=== PATIENT | female | born 2005 | race African-American/Black ===

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

== ENCOUNTER → 2023-05-13 | Emergency (ER) | payer OTHER ==
--- OUTSIDE RECORDS SUMMARY | 2023-05-13 23:34 | XMS REPORT | Continuity of Care Document ---
Author Name Unknown Address [address] [facility] [address] [place] [address] [facility] thconnect Address [address] [facility]. [address] [place] [address] Care Team Providers Care Information Systems Security Specialist Name Role Phone Pcp, Patient Does Not Have A Primary Care Physic monica ANA ANNE Attending Clinician Unavailable LEVI SHELLEY Attending Clinician Unav ailable Ultrasound, Ang[facility] Attending Clinician Unavaila Levi Ellison MD Attending Clinician + Ana Anne MD Attending Clinician [phone] Doctor Unassigned, [place] Attending Clinician U navailable 2, [facility] Attending Clinician Unavailable 1, [facility] Attending Clinician Unavailab Jimenez, [facility] Attending Clinician Un available SNOW ESCOBAR Attending Clinician Unavailable CARMELITA KEMP Attending Clinician Unavailable Carmelita Kemp PA-C Attending Clinician [phone] Snow Escobar MD Attending Clinician [phone] Pob, [facility] Main Attending Clinician UnavailJason Sidhu MD Attending Clinician [phone] JASON LOPEZ Attending Clinician UnavailARMANDO Rodarte Attending Clinician UnavailRUFUS Fu Attending Clinician Unavailab HILDA Mayo Attending Clinician Unavailable MANOHAR GUERRERO Attending Clinician UnavailANA Flood Admitting Clinician Unavailable Ana Anne MD Admitting Clinician [phone] ARMANDO VELEZ Admitting Clinician Unavailabl e Payers Payer Name Policy Type Policy Number Effective Date Expirati on Date Source [place] [id number] 2023 00:00:00 [facility] [id number] 2019 00:00:00 Problems Condition Name Condition Details Condition Category Status Onset Date Resolution Date Last Treatment Date Treating Clinician Comments Source Twin , antepartum , unspecifie d multiple gestation type Twin , antepartum , unspecifie d multiple gestation type Disease Active 2022-04-12 00:00: 00 [facility] Short interval between pregnancie s affecting , antepartum Short interval between pregnancie s affecting , antepartum Disease Active 2022-0412 00:00: 00 [facility] Encounter for elective induction of labor Encounter for elective induction of labor Disease Active 6-14 00:00: 00 [facility] Liveborn infant, of [place] , born in hospital by vaginal delivery Liveborn infant, of [place] , born in hospital by vaginal delivery Disease Active 0 6-14 00:00: 00 [facility] Obesity (BMI 30-39.9) Obesity (BMI 30-39.9) Disease Active 6-06 00:00: 00 [facility] Uterine size-date discrepanc y in third trimester Uterine size-date discrepanc y in third trimester Disease Active 5-15 00:00: 00 [facility] Anemia of mother in , antepartum Anemia of mother in , antepartum Disease Active 1-26 00:00: 00 [facility] Routine follow-up Routine follow-up Disease Active 0 4-20 00:00: 00 [facility] History of History of Disease Active 3-30 00:00: 00 [facility] Encounter for screening for maternal depression Encounter for screening for maternal depression Disease Active 0 3-30 00:00: 00 [facility] 39 weeks gestation of 39 weeks gestation of Disease Active 0 3-21 00:00: 00 [facility] High-risk in second trimester High-risk in second trimester Disease Active 05-05 00:00: 00 [facility] High-risk in third trimester High-risk in third trimester Disease Active 2018-04 00:00: 00 [facility] Allergies, Adverse Reactions, Alerts Allergy Name Allergy Type Status Severity Reaction(s) Onset Date Inactive Date Treating Clinician Comments Source NO KNOWN ALLERGIE S Drug Class Active [facility] Social History Social Habit Start Date Stop Date Quantity Comments Source ASSERTION 2022-12-06 00:00:00 [facility] History SDOH Alcohol Std Drinks [facility] History SDOH Alcohol Binge [facility] Gender identity [facility] Sexual orientation [facility] Alcohol intake 2023-04-21 00:00:00 2023-04-21 00:00:00 Lifetime non-drinker (finding) [facility] Tobacco use and exposure 2022-09-24 00:00:00 2022-09-24 00:00:00 Smokeless tobacco non-user [facility] Exposure to SARS-CoV-2 (event) 2022-08-30 00:00:00 2022-09-09 15:38:00 Not sure [facility] History of Social function 2019-06-27 00:00:00 2019-06-27 00:00:00 [facility] History SDOH Alcohol Frequency 2019-02-16 00:00:00 2019-02-16 00:00:00 1 [facility] Sex Assigned At 2005 00:00:00 2005 00:00:00 [facility] Smoking Status Start Date Stop Date Source Never smoked tobacco [facility] Medications Ordered Medication Name Filled Medication Name Start Date Stop Date Current Medication? Ordering Clinician Indication Dosage Frequency Signature (SIG) Comments Components Source ferrous sulfate (IRON, FERROUS SULFATE,) 325 mg (65 mg iron) tablet 2022-04 00:00: 00 Yes [id number] 325mg Take 1 tablet by mouth in the morning and 1 tablet in the evening. [facility] ferrous sulfate (IRON, FERROUS SULFATE,) 325 mg (65 mg iron) tablet 2022-04 00:00: 00 Yes [id number] 325mg Take 1 tablet by mouth in the morning and 1 tablet in the evening. [facility] ferrous sulfate (IRON, FERROUS SULFATE,) 325 mg (65 mg iron) tablet 2022-04 00:00: 00 Yes [id number] 325mg Take 1 tablet by mouth in the morning and 1 tablet in the evening. [facility] ferrous sulfate (IRON, FERROUS SULFATE,) 325 mg (65 mg iron) tablet 2022-04 00:00: 00 Yes [id number] 325mg Take 1 tablet by mouth in the morning and 1 tablet in the evening. [facility] ferrous sulfate (IRON, FERROUS SULFATE,) 325 mg (65 mg iron) tablet 2022-04 00:00: 00 Yes [id number] 325mg Take 1 tablet by mouth in the morning and 1 tablet in the evening. [facility] ferrous sulfate (IRON, FERROUS SULFATE,) 325 mg (65 mg iron) tablet 2022-04 00:00: 00 Yes [id number] 325mg Take 1 tablet by mouth in the morning and 1 tablet in the evening. [facility] norelgestro min-ethinyl estradiol 150-35 mcg/24 hr patch 0 10-26 00:00: 00 Yes [id number] 1{patch } Apply 1 Patch to skin weekly. [facility] norelgestro min-ethinyl estradiol 150-35 mcg/24 hr patch 2022-0 10-26 00:00: 00 Yes [id number] 1{patch } Apply 1 Patch to skin weekly. [facility] norelgestro min-ethinyl estradiol 150-35 mcg/24 hr patch 2022-0 16 00:00: 00 Yes [id number] 1{patch } Apply 1 Patch to skin weekly. [facility] norelgestro min-ethinyl estradiol 150-35 mcg/24 hr patch 2022-0 16 00:00: 00 Yes [id number] 1{patch } Apply 1 Patch to skin weekly. [facility] norelgestro min-ethinyl estradiol 150-35 mcg/24 hr patch 10-26 00:00: 00 Yes [id number] 1{patch } Apply 1 Patch to skin weekly. [facility] norelgestro min-ethinyl estradiol 150-35 mcg/24 hr patch 16 00:00: 00 03-24 00:00 :00 No [id number] 1{patch } Apply 1 Patch to skin weekly. [facility] vitamin w/FA tablet 09-25 00:00: 00 Yes [id number] 1{tbl} Take 1 tablet by mouth in the morning. [facility] docusate 100 mg capsule 09-25 00:00: 00 Yes [id number] 200mg Take 2 capsules by mouth once daily as needed for Constipati on. [facility] ferrous sulfate 325 mg (65 mg iron) tablet 09-25 00:00: 00 Yes [id number] 325mg Take 1 tablet by mouth in the morning and 1 tablet in the evening. [facility] ibuprofen 600 mg tablet 09-25 00:00: 00 Yes [id number] 600mg Take 1 tablet by mouth every 6 (six) hours as needed (Pain). Take with food or milk. [facility] vitamin w/FA tablet 09-25 00:00: 00 Yes [id number] 1{tbl} Take 1 tablet by mouth in the morning. [facility] docusate 100 mg capsule 09-25 00:00: 00 Yes [id number] 200mg Take 2 capsules by mouth once daily as needed for Constipati on. [facility] ferrous sulfate 325 mg (65 mg iron) tablet 09-25 00:00: 00 Yes [id number] 325mg Take 1 tablet by mouth in the morning and 1 tablet in the evening. [facility] ibuprofen 600 mg tablet 15 00:00: 00 Yes [id number] 600mg Take 1 tablet by mouth every 6 (six) hours as needed (Pain). Take with food or milk. [facility] vitamin w/FA tablet 2022-0 15 00:00: 00 Yes [id number] 1{tbl} Take 1 tablet by mouth in the morning. [facility] docusate 100 mg capsule 3-0 6-15 00:00: 00 Yes [id number] 200mg Take 2 capsules by mouth once daily as needed for Constipati on. [facility] ferrous sulfate 325 mg (65 mg iron) tablet 2022-0 6-15 00:00: 00 Yes [id number] 325mg Take 1 tablet by mouth in the morning and 1 tablet in the evening. [facility] ibuprofen 600 mg tablet 2022-0 -15 00:00: 00 Yes [id number] 600mg Take 1 tablet by mouth every 6 (six) hours as needed (Pain). Take with food or milk. [facility] vitamin w/FA tablet 2022-0 -15 00:00: 00 Yes [id number] 1{tbl} Take 1 tablet by mouth in the morning. [facility] docusate 100 mg capsule 2022-0 -15 00:00: 00 Yes [id number] 200mg Take 2 capsules by mouth once daily as needed for Constipati on. [facility] ferrous sulfate 325 mg (65 mg iron) tablet 2022-0 -15 00:00: 00 Yes [id number] 325mg Take 1 tablet by mouth in the morning and 1 tablet in the evening. [facility] ibuprofen 600 mg tablet 3-0 -15 00:00: 00 Yes [id number] 600mg Take 1 tablet by mouth every 6 (six) hours as needed (Pain). Take with food or milk. [facility] vitamin w/FA tablet 3-0 -15 00:00: 00 Yes [id number] 1{tbl} Take 1 tablet by mouth in the morning. [facility] docusate 100 mg capsule 3-0 6-15 00:00: 00 Yes [id number] 200mg Take 2 capsules by mouth once daily as needed for Constipati on. [facility] ferrous sulfate 325 mg (65 mg iron) tablet 3-0 6-15 00:00: 00 Yes [id number] 325mg Take 1 tablet by mouth in the morning and 1 tablet in the evening. [facility] ibuprofen 600 mg tablet 2023-0 6-15 00:00: 00 Yes [id number] 600mg Take 1 tablet by mouth every 6 (six) hours as needed (Pain). Take with food or milk. [facility] vitamin w/FA tablet 2022-0 -15 00:00: 00 Yes [id number] 1{tbl} Take 1 tablet by mouth in the morning. [facility] docusate 100 mg capsule 2022-0 -15 00:00: 00 Yes [id number] 200mg Take 2 capsules by mouth once daily as needed for Constipati on. [facility] ferrous sulfate 325 mg (65 mg iron) tablet 2022-0 -15 00:00: 00 Yes [id number] 325mg Take 1 tablet by mouth in the morning and 1 tablet in the evening. [facility] ibuprofen 600 mg tablet 2022-0 -15 00:00: 00 Yes [id number] 600mg Take 1 tablet by mouth every 6 (six) hours as needed (Pain). Take with food or milk. [facility] vitamin w/FA tablet 2022-0 15 00:00: 00 Yes [id number] 1{tbl} Take 1 tablet by mouth in the morning. [facility] docusate 100 mg capsule 2022-0 15 00:00: 00 Yes [id number] 200mg Take 2 capsules by mouth once daily as needed for Constipati on. [facility] ferrous sulfate 325 mg (65 mg iron) tablet 2022-0 15 00:00: 00 Yes [id number] 325mg Take 1 tablet by mouth in the morning and 1 tablet in the evening. [facility] ibuprofen 600 mg tablet 2022-0 15 00:00: 00 Yes [id number] 600mg Take 1 tablet by mouth every 6 (six) hours as needed (Pain). Take with food or milk. [facility] vitamin w/FA tablet 3-0 -15 00:00: 00 Yes [id number] 1{tbl} Take 1 tablet by mouth in the morning. [facility] vitamin w/FA tablet 3-0 -15 00:00: 00 Yes [id number] 1{tbl} Take 1 tablet by mouth in the morning. [facility] vitamin w/FA tablet 2022-0 15 00:00: 00 Yes [id number] 1{tbl} Take 1 tablet by mouth in the morning. [facility] vitamin w/FA tablet 2022-0 15 00:00: 00 Yes [id number] 1{tbl} Take 1 tablet by mouth in the morning. [facility] vitamin w/FA tablet 0 15 00:00: 00 Yes [id number] 1{tbl} Take 1 tablet by mouth in the morning. [facility] vitamin w/FA tablet 2022-0 15 00:00: 00 Yes [id number] 1{tbl} Take 1 tablet by mouth in the morning. [facility] vitamin w/FA tablet 0 15 00:00: 00 Yes [id number] 1{tbl} Take 1 tablet by mouth in the morning. [facility] vitamin w/FA tablet 0 15 00:00: 00 Yes [id number] 1{tbl} Take 1 tablet by mouth in the morning. [facility] vitamin w/FA tablet 0 15 00:00: 00 Yes [id number] 1{tbl} Take 1 tablet by mouth in the morning. [facility] vitamin w/FA tablet 0 15 00:00: 00 Yes [id number] 1{tbl} Take 1 tablet by mouth in the morning. [facility] docusate 100 mg capsule 09-25 00:00: 00 03-24 00:00 :00 No [id number] 200mg Take 2 capsules by mouth once daily as needed for Constipati on. [facility] ferrous sulfate 325 mg (65 mg iron) tablet 09-25 00:00: 00 03-24 00:00 :00 No [id number] 325mg Take 1 tablet by mouth in the morning and 1 tablet in the evening. [facility] ibuprofen 600 mg tablet 09-25 00:00: 00 2023- 12-12 00:00 :00 No [id number] 600mg Take 1 tablet by mouth every 6 (six) hours as needed (Pain). Take with food or milk. [facility] rho(D) immune globulin (RHOGAM) syringe 300 mcg 09-24 18:01: 03 Yes 300ug 300 mcg, Intramuscu lar, ONCE, For 1 dose, Conditiona l, Routine [facility] witch [place] (TUCKS) 50 % topical pad 09-24 18:00: 32 Yes Topical, Q4HPRN, Starting on Thu09/24/22 at 1300, Until Discontinu ed, Routine, rectal/hem orrhoidal pain [facility] HYDROcodone -acetaminop hen (NORCO 5) 5-325 mg tablet 1 tablet 09-24 17:59: 53 Yes 1{tbl} 1 tablet, Oral, Q6HPRN, Starting on Thu09/24/22 at 1259, Until Discontinu ed, Routine, Pain (scale 7-10) [facility] ibuprofen (IBU) tablet 600 mg 09-24 17:59: 53 Yes 600mg 600 mg, Oral, Q6HPRN, Starting on Thu09/24/22 at 1259, Until Discontinu ed, Routine, Pain (scale 4-6) [facility] acetaminoph en (TYLENOL) tablet 650 mg 09-24 17:59: 53 Yes 650mg 650 mg, Oral, Q6HPRN, Starting on Thu09/24/22 at 1259, Until Discontinu ed, Routine, Pain (scale 1-3) [facility] diphenhydrA MINE (BENADRYL) tablet 25 mg 09-24 17:59: 53 Yes 25mg 25 mg, Oral, Q6HPRN, Starting on Thu09/24/22 at 1259, Until Discontinu ed, Routine, Sleep, Itching [facility] ondansetron (ZOFRAN (PF)) injection 4 mg 09-24 17:59: 53 Yes 4mg 4 mg, Slow IV Push, Q8HPRN, Starting on Thu09/24/22 at 1259, Until Discontinu ed, Routine, Nausea and Vomiting (N/V) [facility] simethicone (GAS RELIEF (SIMETHICON E)) chewable tablet 160 mg 09-24 17:59: 53 Yes 160mg 160 mg, Oral, PC+HSPRN, Starting on Thu09/24/22 at 1259, Until Discontinu ed, Routine, Gas [facility] docusate (COLACE) capsule 200 mg 09-24 17:59: 53 Yes 200mg 200 mg, Oral, QDAILYPRN, Starting on Thu09/24/22 at 1259, Until Discontinu ed, Routine, Constipati on [facility] magnesium hydroxide (MILK OF MAGNESIA) 400 mg/5 mL suspension 30 mL 09-24 17:59: 52 Yes 30mL 30 mL, Oral, QDAILYPRN, Starting on Thu09/24/22 at 1259, Until Discontinu ed, Routine, Constipati on [facility] benzocaine- menthol (DERMOPLAST ) 20-0.5 % topical spray 09-24 17:59: 52 Yes Topical, PRN, Starting on Thu09/24/22 at 1259, Until Discontinu ed, Routine, Perineum discomfort [facility] FENTanyl PF (SUBLIMAZE (PF)) injection 100 mcg 09-24 10:16: 28 09-24 18:01 :01 No 100ug 100 mcg, Slow IV Push, Q1HPRN, Starting on Thu09/24/22 at 0516, Until Thu09/24/22 at 1301, Routine, Pain (scale 4-6), Pain (scale 7-10) [facility] methylergon ovine (METHERGINE ) injection 0.2 mg 09-24 10:16: 28 09-24 17:37 :00 No .2mg 0.2 mg, Intramuscu lar, Q4HPRN, 1 dose, Starting on Thu09/24/22 at 0516, Until Discontinu ed, Routine, PPH [facility] oxytocin (PITOCIN) 30 units in NS 500 mL IV infusion 09-24 10:16: 09-24 18:01 :01 No 2mU/min at 2-40 mL/hr, IV Infusion, TITRATE, Starting on Thu09/24/22 at 0516, Until Thu09/24/22 at 1301, HELEN [facility] D5W-LR IV infusion 1,000 mL 09-24 10:16: 09-24 18:01 :01 No 1000mL at 1-125 mL/hr, IV Infusion, TITRATE, Starting on Thu09/24/22 at 0516, Until Thu09/24/22 at 1301, Routine [facility] ferrous sulfate (IRON, FERROUS SULFATE,) 325 mg (65 mg iron) tablet 09-10 00:00: 00 Yes [id number] 325mg Take 1 tablet by mouth in the morning and 1 tablet in the evening. [facility] PNV 67-iron ps-folate no.1-dha (VITAFOL ULTRA) 29 mg iron- 1 mg-200 mg Cap 09-10 00:00: 00 Yes 1{capsu le} Take 1 capsule by mouth in the morning. [facility] ferrous sulfate (IRON, FERROUS SULFATE,) 325 mg (65 mg iron) tablet 09-10 00:00: 00 Yes [id number] 325mg Take 1 tablet by mouth in the morning and 1 tablet in the evening. [facility] PNV 67-iron ps-folate no.1-dha (VITAFOL ULTRA) 29 mg iron- 1 mg-200 mg Cap 09-10 00:00: 00 Yes 1{capsu le} Take 1 capsule by mouth in the morning. [facility] ferrous sulfate (IRON, FERROUS SULFATE,) 325 mg (65 mg iron) tablet 09-10 00:00: 00 Yes [id number] 325mg Take 1 tablet by mouth in the morning and 1 tablet in the evening. [facility] PNV 67-iron ps-folate no.1-dha (VITAFOL ULTRA) 29 mg iron- 1 mg-200 mg Cap 09-10 00:00: 00 Yes 1{capsu le} Take 1 capsule by mouth in the morning. [facility] ferrous sulfate (IRON, FERROUS SULFATE,) 325 mg (65 mg iron) tablet 09-10 00:00: 00 Yes [id number] 325mg Take 1 tablet by mouth in the morning and 1 tablet in the evening. [facility] PNV 67-iron ps-folate no.1-dha (VITAFOL ULTRA) 29 mg iron- 1 mg-200 mg Cap 2022-0 5 00:00: 00 Yes 1{capsu le} Take 1 capsule by mouth in the morning. [facility] ferrous sulfate (IRON, FERROUS SULFATE,) 325 mg (65 mg iron) tablet 09-10 00:00: 00 09-25 00:00 :00 No [id number] 325mg Take 1 tablet by mouth in the morning and 1 tablet in the evening. [facility] PNV 67-iron ps-folate no.1-dha (VITAFOL ULTRA) 29 mg iron- 1 mg-200 mg Cap 09-10 00:00: 00 09-25 00:00 :00 No 1{capsu le} Take 1 capsule by mouth in the morning. [facility] PNV 67-iron ps-folate no.1-dha (VITAFOL ULTRA) 29 mg iron- 1 mg-200 mg Cap 2022-0 2-08 00:00: 00 Yes 1{capsu le} Take 1 capsule by mouth daily. [facility] PNV 67-iron ps-folate no.1-dha (VITAFOL ULTRA) 29 mg iron- 1 mg-200 mg Cap 2022-0 2-08 00:00: 00 Yes 1{capsu le} Take 1 capsule by mouth daily. [facility] PNV 67-iron ps-folate no.1-dha (VITAFOL ULTRA) 29 mg iron- 1 mg-200 mg Cap 3-0 2-08 00:00: 00 Yes 1{capsu le} Take 1 capsule by mouth daily. [facility] PNV 67-iron ps-folate no.1-dha (VITAFOL ULTRA) 29 mg iron- 1 mg-200 mg Cap 2022-0 2-08 00:00: 00 Yes 1{capsu le} Take 1 capsule by mouth daily. [facility] PNV 67-iron ps-folate no.1-dha (VITAFOL ULTRA) 29 mg iron- 1 mg-200 mg Cap 2023-0 2-08 00:00: 00 Yes 1{capsu le} Take 1 capsule by mouth daily. [facility] PNV 67-iron ps-folate no.1-dha (VITAFOL ULTRA) 29 mg iron- 1 mg-200 mg Cap 2023-0 2-08 00:00: 00 Yes 1{capsu le} Take 1 capsule by mouth daily. [facility] PNV 67-iron ps-folate no.1-dha (VITAFOL ULTRA) 29 mg iron- 1 mg-200 mg Cap 2023-0 2-08 00:00: 00 Yes 1{capsu le} Take 1 capsule by mouth daily. [facility] PNV 67-iron ps-folate no.1-dha (VITAFOL ULTRA) 29 mg iron- 1 mg-200 mg Cap 2023-0 2-08 00:00: 00 Yes 1{capsu le} Take 1 capsule by mouth daily. [facility] PNV 67-iron ps-folate no.1-dha (VITAFOL ULTRA) 29 mg iron- 1 mg-200 mg Cap 2023-0 2-08 00:00: 00 Yes 1{capsu le} Take 1 capsule by mouth daily. [facility] PNV 67-iron ps-folate no.1-dha (VITAFOL ULTRA) 29 mg iron- 1 mg-200 mg Cap 2023-0 2-08 00:00: 00 Yes 1{capsu le} Take 1 capsule by mouth daily. [facility] PNV 67-iron ps-folate no.1-dha (VITAFOL ULTRA) 29 mg iron- 1 mg-200 mg Cap 2023-0 2-08 00:00: 00 Yes 1{capsu le} Take 1 capsule by mouth daily. [facility] PNV 67-iron ps-folate no.1-dha (VITAFOL ULTRA) 29 mg iron- 1 mg-200 mg Cap 2023-0 2-08 00:00: 00 Yes 1{capsu le} Take 1 capsule by mouth daily. [facility] PNV 67-iron ps-folate no.1-dha (VITAFOL ULTRA) 29 mg iron- 1 mg-200 mg Cap 2-08 00:00: 00 Yes 1{capsu le} Take 1 capsule by mouth daily. [facility] PNV 67-iron ps-folate no.1-dha (VITAFOL ULTRA) 29 mg iron- 1 mg-200 mg Cap 2-08 00:00: 00 Yes 1{capsu le} Take 1 capsule by mouth daily. [facility] PNV 67-iron ps-folate no.1-dha (VITAFOL ULTRA) 29 mg iron- 1 mg-200 mg Cap 2-08 00:00: 00 - 00:00 :00 No 1{capsu le} Take 1 capsule by mouth daily. [facility] ferrous sulfate (IRON, FERROUS SULFATE,) 325 mg (65 mg iron) tablet 05-08 00:00: 00 Yes [id number] 325mg Take 1 tablet by mouth in the morning and 1 tablet in the evening. [facility] ferrous sulfate (IRON, FERROUS SULFATE,) 325 mg (65 mg iron) tablet 05-08 00:00: 00 Yes [id number] 325mg Take 1 tablet by mouth in the morning and 1 tablet in the evening. [facility] ferrous sulfate (IRON, FERROUS SULFATE,) 325 mg (65 mg iron) tablet 05-08 00:00: 00 Yes [id number] 325mg Take 1 tablet by mouth in the morning and 1 tablet in the evening. [facility] ferrous sulfate (IRON, FERROUS SULFATE,) 325 mg (65 mg iron) tablet 05-08 00:00: 00 Yes [id number] 325mg Take 1 tablet by mouth in the morning and 1 tablet in the evening. [facility] ferrous sulfate (IRON, FERROUS SULFATE,) 325 mg (65 mg iron) tablet 05-08 00:00: 00 Yes [id number] 325mg Take 1 tablet by mouth in the morning and 1 tablet in the evening. [facility] ferrous sulfate (IRON, FERROUS SULFATE,) 325 mg (65 mg iron) tablet 05-08 00:00: 00 Yes [id number] 325mg Take 1 tablet by mouth in the morning and 1 tablet in the evening. [facility] ferrous sulfate (IRON, FERROUS SULFATE,) 325 mg (65 mg iron) tablet 05-08 00:00: 00 Yes [id number] 325mg Take 1 tablet by mouth in the morning and 1 tablet in the evening. [facility] ferrous sulfate (IRON, FERROUS SULFATE,) 325 mg (65 mg iron) tablet 05-08 00:00: 00 Yes [id number] 325mg Take 1 tablet by mouth in the morning and 1 tablet in the evening. [facility] ferrous sulfate (IRON, FERROUS SULFATE,) 325 mg (65 mg iron) tablet 05-08 00:00: 00 Yes [id number] 325mg Take 1 tablet by mouth in the morning and 1 tablet in the evening. [facility] ferrous sulfate (IRON, FERROUS SULFATE,) 325 mg (65 mg iron) tablet 05-08 00:00: 00 Yes [id number] 325mg Take 1 tablet by mouth in the morning and 1 tablet in the evening. [facility] ferrous sulfate (IRON, FERROUS SULFATE,) 325 mg (65 mg iron) tablet 05-08 00:00: 00 Yes [id number] 325mg Take 1 tablet by mouth in the morning and 1 tablet in the evening. [facility] ferrous sulfate (IRON, FERROUS SULFATE,) 325 mg (65 mg iron) tablet 05-08 00:00: 00 Yes [id number] 325mg Take 1 tablet by mouth in the morning and 1 tablet in the evening. [facility] ferrous sulfate (IRON, FERROUS SULFATE,) 325 mg (65 mg iron) tablet 05-08 00:00: 00 Yes [id number] 325mg Take 1 tablet by mouth in the morning and 1 tablet in the evening. [facility] ferrous sulfate (IRON, FERROUS SULFATE,) 325 mg (65 mg iron) tablet 05-08 00:00: 00 Yes [id number] 325mg Take 1 tablet by mouth in the morning and 1 tablet in the evening. [facility] ferrous sulfate (IRON, FERROUS SULFATE,) 325 mg (65 mg iron) tablet 05-08 00:00: 00 Yes [id number] 325mg Take 1 tablet by mouth in the morning and 1 tablet in the evening. [facility] ferrous sulfate (IRON, FERROUS SULFATE,) 325 mg (65 mg iron) tablet 05-08 00:00: 00 Yes [id number] 325mg Take 1 tablet by mouth in the morning and 1 tablet in the evening. [facility] ferrous sulfate (IRON, FERROUS SULFATE,) 325 mg (65 mg iron) tablet 05-08 00:00: 00 Yes [id number] 325mg Take 1 tablet by mouth in the morning and 1 tablet in the evening. [facility] ferrous sulfate (IRON, FERROUS SULFATE,) 325 mg (65 mg iron) tablet 05-08 00:00: 00 09-10 00:00 :00 No [id number] 325mg Take 1 tablet by mouth in the morning and 1 tablet in the evening. [facility] metroNIDAZO LE 500 mg tablet 04-14 00:00: 00 Yes [id number] 500mg Take 1 tablet by mouth every 12 (twelve) hours. [facility] metroNIDAZO LE 500 mg tablet 04-14 00:00: 00 Yes [id number] 500mg Take 1 tablet by mouth every 12 (twelve) hours. [facility] metroNIDAZO LE 500 mg tablet 04-14 00:00: 00 Yes [id number] 500mg Take 1 tablet by mouth every 12 (twelve) hours. [facility] metroNIDAZO LE 500 mg tablet 04-14 00:00: 00 Yes [id number] 500mg Take 1 tablet by mouth every 12 (twelve) hours. [facility] metroNIDAZO LE 500 mg tablet 04-14 00:00: 00 Yes [id number] 500mg Take 1 tablet by mouth every 12 (twelve) hours. [facility] metroNIDAZO LE 500 mg tablet 04-14 00:00: 00 Yes [id number] 500mg Take 1 tablet by mouth every 12 (twelve) hours. [facility] metroNIDAZO LE 500 mg tablet 04-14 00:00: 00 Yes [id number] 500mg Take 1 tablet by mouth every 12 (twelve) hours. [facility] metroNIDAZO LE 500 mg tablet 04-14 00:00: 00 05-08 00:00 :00 No [id number] 500mg Take 1 tablet by mouth every 12 (twelve) hours. [facility] metroNIDAZO LE 500 mg tablet 04-14 00:00: 00 05-08 00:00 :00 No [id number] 500mg Take 1 tablet by mouth every 12 (twelve) hours. [facility] fluconazole 200 mg tablet 04-14 00:00: 00 04-16 05:59 :00 No [id number] 200mg Take 1 tablet by mouth in the morning for 1 day. [facility] azithromyci n 500 mg tablet 04-14 00:00: 00 04-16 05:59 :00 No [id number] 1000mg Take 2 tablets by mouth in the morning for 1 day. [facility] fluconazole 200 mg tablet 04-14 00:00: 00 04-16 05:59 :00 No [id number] 200mg Take 1 tablet by mouth in the morning for 1 day. [facility] azithromyci n 500 mg tablet 04-14 00:00: 00 04-16 05:59 :00 No [id number] 1000mg Take 2 tablets by mouth in the morning for 1 day. [facility] PNV 67-iron ps-folate no.1-dha (VITAFOL ULTRA) 29 mg iron- 1 mg-200 mg Cap 2021-04 2-30 00:00: 00 Yes 1{capsu le} Take 1 capsule by mouth daily. [facility] PNV 67-iron ps-folate no.1-dha (VITAFOL ULTRA) 29 mg iron- 1 mg-200 mg Cap 2022-1 2-30 00:00: 00 Yes 1{capsu le} Take 1 capsule by mouth daily. [facility] PNV 67-iron ps-folate no.1-dha (VITAFOL ULTRA) 29 mg iron- 1 mg-200 mg Cap 2021-04 2-30 00:00: 00 Yes 1{capsu le} Take 1 capsule by mouth daily. [facility] PNV 67-iron ps-folate no.1-dha (VITAFOL ULTRA) 29 mg iron- 1 mg-200 mg Cap 2021-04 2-30 00:00: 00 Yes 1{capsu le} Take 1 capsule by mouth daily. [facility] PNV 67-iron ps-folate no.1-dha (VITAFOL ULTRA) 29 mg iron- 1 mg-200 mg Cap 2021-04 2-30 00:00: 00 Yes 1{capsu le} Take 1 capsule by mouth daily. [facility] PNV 67-iron ps-folate no.1-dha (VITAFOL ULTRA) 29 mg iron- 1 mg-200 mg Cap 2021-04 2-30 00:00: 00 Yes 1{capsu le} Take 1 capsule by mouth daily. [facility] PNV 67-iron ps-folate no.1-dha (VITAFOL ULTRA) 29 mg iron- 1 mg-200 mg Cap 2021-04 2-30 00:00: 00 Yes 1{capsu le} Take 1 capsule by mouth daily. [facility] PNV 67-iron ps-folate no.1-dha (VITAFOL ULTRA) 29 mg iron- 1 mg-200 mg Cap 2021-04 2-30 00:00: 00 Yes 1{capsu le} Take 1 capsule by mouth daily. [facility] PNV 67-iron ps-folate no.1-dha (VITAFOL ULTRA) 29 mg iron- 1 mg-200 mg Cap 2021-04 2-30 00:00: 00 Yes 1{capsu le} Take 1 capsule by mouth daily. [facility] PNV 67-iron ps-folate no.1-dha (VITAFOL ULTRA) 29 mg iron- 1 mg-200 mg Cap 2021-04 2-30 00:00: 00 Yes 1{capsu le} Take 1 capsule by mouth daily. [facility] PNV 67-iron ps-folate no.1-dha (VITAFOL ULTRA) 29 mg iron- 1 mg-200 mg Cap 2021-04 00:00: 00 Yes 1{capsu le} Take 1 capsule by mouth daily. [facility] PNV 67-iron ps-folate no.1-dha (VITAFOL ULTRA) 29 mg iron- 1 mg-200 mg Cap 2021-04 00:00: 00 05-21 00:00 :00 No 1{capsu le} Take 1 capsule by mouth daily. [facility] medroxyPROG ESTERone 150 mg/mL injection 2021-04 18:38: 57 04-10 00:00 :00 No 150mg 150 mg by Intramuscu lar route every 3 (three) months. [facility] medroxyPROG ESTERone 150 mg/mL injection 2021-04 18:38: 57 04-10 00:00 :00 No 150mg 150 mg by Intramuscu lar route every 3 (three) months. [facility] PNV 102-iron-fo late-dha (VITAFOL FE PLUS) 90 mg iron- 1 mg-200 mg Cap 2021-04 00:00: 00 Yes [id number] Take 1 TAB-CAP/M2 by mouth daily. [facility] PNV 102-iron-fo late-dha (VITAFOL FE PLUS) 90 mg iron- 1 mg-200 mg Cap 2021-04 00:00: 00 Yes [id number] Take 1 TAB-CAP/M2 by mouth daily. [facility] PNV 102-iron-fo late-dha (VITAFOL FE PLUS) 90 mg iron- 1 mg-200 mg Cap 2021-04 00:00: 00 04-11 00:00 :00 No [id number] Take 1 TAB-CAP/M2 by mouth daily. [facility] PNV 102-iron-fo late-dha (VITAFOL FE PLUS) 90 mg iron- 1 mg-200 mg Cap 2021-04 00:00: 00 04-11 00:00 :00 No [id number] Take 1 TAB-CAP/M2 by mouth daily. [facility] medroxyPROG ESTERone 150 mg/mL injection 2019-04 014 10:49: 26 Yes 150mg 150 mg by Intramuscu lar route every 3 (three) months. [facility] ibuprofen 600 mg tablet 07-04 00:00: 00 Yes [id number] 600mg Take 1 tablet by mouth every 6 (six) hours as needed (Pain). Take with food or milk. [facility] ferrous sulfate 325 mg (65 mg iron) tablet 07-04 00:00: 00 Yes [id number] 325mg Take 1 tablet by mouth daily. [facility] docusate calcium 240 mg capsule 07-04 00:00: 00 Yes [id number] 240mg Take 1 capsule by mouth once daily as needed for Constipati on. [facility] ibuprofen 600 mg tablet 07-04 00:00: 00 04-10 00:00 :00 No [id number] 600mg Take 1 tablet by mouth every 6 (six) hours as needed (Pain). Take with food or milk. [facility] ferrous sulfate 325 mg (65 mg iron) tablet 07-04 00:00: 00 04-10 00:00 :00 No [id number] 325mg Take 1 tablet by mouth daily. [facility] docusate calcium 240 mg capsule 07-04 00:00: 00 04-10 00:00 :00 No [id number] 240mg Take 1 capsule by mouth once daily as needed for Constipati on. [facility] ibuprofen 600 mg tablet 07-04 00:00: 00 04-10 00:00 :00 No [id number] 600mg Take 1 tablet by mouth every 6 (six) hours as needed (Pain). Take with food or milk. [facility] ferrous sulfate 325 mg (65 mg iron) tablet 07-04 00:00: 00 04-10 00:00 :00 No [id number] 325mg Take 1 tablet by mouth daily. [facility] docusate calcium 240 mg capsule 3-24 00:00: 00 04-10 00:00 :00 No [id number] 240mg Take 1 capsule by mouth once daily as needed for Constipati on. [facility] ascorbic acid, vitamin C, 500 mg tablet 05-10 00:00: 00 Yes [id number] 500mg Take 1 tablet by mouth 3 (three) times daily. [facility] ascorbic acid, vitamin C, 500 mg tablet 05-10 00:00: 00 04-10 00:00 :00 No [id number] 500mg Take 1 tablet by mouth 3 (three) times daily. [facility] ascorbic acid, vitamin C, 500 mg tablet 05-10 00:00: 00 04-10 00:00 :00 No [id number] 500mg Take 1 tablet by mouth 3 (three) times daily. [facility] multivitami n tablet 1-17 00:00: 00 Yes [id number] 1{tbl} Take 1 tablet by mouth daily. [facility] multivitami n tablet - 00:00: 00 04-10 00:00 :00 No [id number] 1{tbl} Take 1 tablet by mouth daily. [facility] multivitami n tablet 04-29 00:00: 00 04-10 00:00 :00 No [id number] 1{tbl} Take 1 tablet by mouth daily. [facility] Immunizations Ordered Immunization Name Filled Immunization Name Date Status Comments Source TDAP 2022-07-09 00:00:00 Completed [facility] TDAP 2022-07-09 00:00:00 Completed [facility] TDAP 2022-07-09 00:00:00 Completed [facility] TDAP 2022-07-09 00:00:00 Completed [facility] TDAP 2022-07-09 00:00:00 Completed [facility] TDAP 2022-07-09 00:00:00 Completed [facility] TDAP 2022-07-09 00:00:00 Completed [facility] TDAP 2022-07-09 00:00:00 Completed [facility] TDAP 2022-07-09 00:00:00 Completed [facility] TDAP 2022-07-09 00:00:00 Completed [facility] TDAP 2022-07-09 00:00:00 Completed [facility] TDAP 2022-07-09 00:00:00 Completed [facility] TDAP 2022-07-09 00:00:00 Completed [facility] TDAP 2022-07-09 00:00:00 Completed [facility] TDAP 2022-07-09 00:00:00 Completed [facility] TDAP 2022-07-09 00:00:00 Completed [facility] TDAP 2022-07-09 00:00:00 Completed [facility] TDAP 2022-07-09 00:00:00 Completed [facility] TDAP 2022-07-09 00:00:00 Completed [facility] TDAP 2022-07-09 00:00:00 Completed [facility] TDAP 2022-07-09 00:00:00 Completed [facility] TDAP (ADACEL) VACCINE 2019-05-09 00:00:00 Completed [facility] TDAP (ADACEL) VACCINE 2019-05-09 00:00:00 Completed [facility] TDAP (ADACEL) VACCINE 2019-05-09 00:00:00 Completed [facility] TDAP (ADACEL) VACCINE 2019-05-09 00:00:00 Completed [facility] TDAP (ADACEL) VACCINE 2019-05-09 00:00:00 Completed [facility] TDAP (ADACEL) VACCINE 2019-05-09 00:00:00 Completed [facility] TDAP (ADACEL) VACCINE 2019-05-09 00:00:00 Completed [facility] TDAP (ADACEL) VACCINE 2019-05-09 00:00:00 Completed [facility] TDAP (ADACEL) VACCINE 2019-05-09 00:00:00 Completed [facility] TDAP (ADACEL) VACCINE 2019-05-09 00:00:00 Completed [facility] TDAP (ADACEL) VACCINE 2019-05-09 00:00:00 Completed [facility] TDAP (ADACEL) VACCINE 2019-05-09 00:00:00 Completed [facility] TDAP (ADACEL) VACCINE 2019-05-09 00:00:00 Completed [facility] TDAP (ADACEL) VACCINE 2019-05-09 00:00:00 Completed [facility] TDAP (ADACEL) VACCINE 2019-05-09 00:00:00 Completed [facility] TDAP (ADACEL) VACCINE 2019-05-09 00:00:00 Completed [facility] TDAP (ADACEL) VACCINE 2019-05-09 00:00:00 Completed [facility] TDAP (ADACEL) VACCINE 2019-05-09 00:00:00 Completed [facility] TDAP (ADACEL) VACCINE 2019-05-09 00:00:00 Completed [facility] TDAP (ADACEL) VACCINE 2019-05-09 00:00:00 Completed [facility] TDAP (ADACEL) VACCINE 2019-05-09 00:00:00 Completed [facility] TDAP (ADACEL) VACCINE 2019-05-09 00:00:00 Completed [facility] TDAP (ADACEL) VACCINE 2019-05-09 00:00:00 Completed [facility] TDAP (ADACEL) VACCINE 2019-05-09 00:00:00 Completed [facility] TDAP (ADACEL) VACCINE 2019-05-09 00:00:00 Completed [facility] TDAP (ADACEL) VACCINE 2019-05-09 00:00:00 Completed [facility] TDAP (ADACEL) VACCINE 2019-05-09 00:00:00 Completed [facility] TDAP (ADACEL) VACCINE 2019-05-09 00:00:00 Completed [facility] TDAP (ADACEL) VACCINE 2019-05-09 00:00:00 Completed [facility] TDAP (ADACEL) VACCINE 2019-05-09 00:00:00 Completed [facility] TDAP (ADACEL) VACCINE 2019-05-09 00:00:00 Completed [facility] TDAP (ADACEL) VACCINE 2019-05-09 00:00:00 Completed [facility] TDAP (ADACEL) VACCINE 2019-05-09 00:00:00 Completed [facility] TDAP (ADACEL) VACCINE 2019-05-09 00:00:00 Completed [facility] TDAP (ADACEL) VACCINE 2019-05-09 00:00:00 Completed [facility] TDAP (ADACEL) VACCINE 2019-05-09 00:00:00 Completed [facility] TDAP (ADACEL) VACCINE 2019-05-09 00:00:00 Completed [facility] TDAP (ADACEL) VACCINE 2019-05-09 00:00:00 Completed [facility] TDAP (ADACEL) VACCINE 2019-05-09 00:00:00 Completed [facility] TDAP (ADACEL) VACCINE 2019-05-09 00:00:00 Completed [facility] Influenza Virus Vaccine Quad .5 mL IM 6+ MO 2019-02-16 00:00:00 Completed [facility] Influenza Virus Vaccine Quad .5 mL IM 6+ MO 2019-02-16 00:00:00 Completed [facility] Influenza Virus Vaccine Quad .5 mL IM 6+ MO 2019-02-16 00:00:00 Completed [facility] Influenza Virus Vaccine Quad .5 mL IM 6+ MO 2019-02-16 00:00:00 Completed [facility] Influenza Virus Vaccine Quad .5 mL IM 6+ MO 2019-02-16 00:00:00 Completed [facility] Influenza Virus Vaccine Quad .5 mL IM 6+ MO 2019-02-16 00:00:00 Completed [facility] Influenza Virus Vaccine Quad .5 mL IM 6+ MO 2019-02-16 00:00:00 Completed [facility] Influenza Virus Vaccine Quad .5 mL IM 6+ MO 2019-02-16 00:00:00 Completed [facility] Influenza Virus Vaccine Quad .5 mL IM 6+ MO 2019-02-16 00:00:00 Completed [facility] Influenza Virus Vaccine Quad .5 mL IM 6+ MO 2019-02-16 00:00:00 Completed [facility] Influenza Virus Vaccine Quad .5 mL IM 6+ MO 2019-02-16 00:00:00 Completed [facility] Influenza Virus Vaccine Quad .5 mL IM 6+ MO 2019-02-16 00:00:00 Completed [facility] Influenza Virus Vaccine Quad .5 mL IM 6+ MO 2019-02-16 00:00:00 Completed [facility] Influenza Virus Vaccine Quad .5 mL IM 6+ MO 2019-02-16 00:00:00 Completed [facility] Influenza Virus Vaccine Quad .5 mL IM 6+ MO 2019-02-16 00:00:00 Completed [facility] Influenza Virus Vaccine Quad .5 mL IM 6+ MO 2019-02-16 00:00:00 Completed [facility] Influenza Virus Vaccine Quad .5 mL IM 6+ MO 2019-02-16 00:00:00 Completed [facility] Influenza Virus Vaccine Quad .5 mL IM 6+ MO 2019-02-16 00:00:00 Completed [facility] Influenza Virus Vaccine Quad .5 mL IM 6+ MO 2019-02-16 00:00:00 Completed [facility] Influenza Virus Vaccine Quad .5 mL IM 6+ MO (FLUZONE/FLULAVAL/FL UARIX) 2019-02-16 00:00:00 Completed [facility] Influenza Virus Vaccine Quad .5 mL IM 6+ MO 2019-02-16 00:00:00 Completed [facility] Influenza Virus Vaccine Quad .5 mL IM 6+ MO 2019-02-16 00:00:00 Completed [facility] Influenza Virus Vaccine Quad .5 mL IM 6+ MO 2019-02-16 00:00:00 Completed [facility] Influenza Virus Vaccine Quad .5 mL IM 6+ MO 2019-02-16 00:00:00 Completed [facility] Influenza Virus Vaccine Quad .5 mL IM 6+ MO 2019-02-16 00:00:00 Completed [facility] Influenza Virus Vaccine Quad .5 mL IM 6+ MO 2019-02-16 00:00:00 Completed [facility] Influenza Virus Vaccine Quad .5 mL IM 6+ MO 2019-02-16 00:00:00 Completed [facility] Influenza Virus Vaccine Quad .5 mL IM 6+ MO 2019-02-16 00:00:00 Completed [facility] Influenza Virus Vaccine Quad .5 mL IM 6+ MO 2019-02-16 00:00:00 Completed [facility] Influenza Virus Vaccine Quad .5 mL IM 6+ MO 2019-02-16 00:00:00 Completed [facility] Influenza Virus Vaccine Quad .5 mL IM 6+ MO 2019-02-16 00:00:00 Completed [facility] Influenza Virus Vaccine Quad .5 mL IM 6+ MO 2019-02-16 00:00:00 Completed [facility] Influenza Virus Vaccine Quad .5 mL IM 6+ MO 2019-02-16 00:00:00 Completed [facility] Influenza Virus Vaccine Quad .5 mL IM 6+ MO 2019-02-16 00:00:00 Completed [facility] Influenza Virus Vaccine Quad .5 mL IM 6+ MO 2019-02-16 00:00:00 Completed [facility] Influenza Virus Vaccine Quad .5 mL IM 6+ MO 2019-02-16 00:00:00 Completed [facility] Influenza Virus Vaccine Quad .5 mL IM 6+ MO 2019-02-16 00:00:00 Completed [facility] Influenza Virus Vaccine Quad .5 mL IM 6+ MO 2019-02-16 00:00:00 Completed [facility] Influenza Virus Vaccine Quad .5 mL IM 6+ MO 2019-02-16 00:00:00 Completed [facility] Influenza Virus Vaccine Quad .5 mL IM 6+ MO 2019-02-16 00:00:00 Completed [facility] HEPATITIS A 2018-11-26 00:00:00 Completed [facility] Meningococcal Polysaccharide (groups A, C, Y and W-135) conjugate vaccine (MCV4P) 2018-11-26 00:00:00 Completed [facility] HEPATITIS A 2018-11-26 00:00:00 Completed [facility] Meningococcal Polysaccharide (groups A, C, Y and W-135) conjugate vaccine (MCV4P) 2018-11-26 00:00:00 Completed [facility] HEPATITIS A 2018-11-26 00:00:00 Completed [facility] Meningococcal Polysaccharide (groups A, C, Y and W-135) conjugate vaccine (MCV4P) 2018-11-26 00:00:00 Completed [facility] HEPATITIS A 2018-11-26 00:00:00 Completed [facility] Meningococcal Polysaccharide (groups A, C, Y and W-135) conjugate vaccine (MCV4P) 2018-11-26 00:00:00 Completed [facility] HEPATITIS A 2018-11-26 00:00:00 Completed [facility] Meningococcal Polysaccharide (groups A, C, Y and W-135) conjugate vaccine (MCV4P) 2018-11-26 00:00:00 Completed [facility] HEPATITIS A 2018-11-26 00:00:00 Completed [facility] Meningococcal Polysaccharide (groups A, C, Y and W-135) conjugate vaccine (MCV4P) 2018-11-26 00:00:00 Completed [facility] HEPATITIS A 2018-11-26 00:00:00 Completed [facility] Meningococcal Polysaccharide (groups A, C, Y and W-135) conjugate vaccine (MCV4P) 2018-11-26 00:00:00 Completed [facility] HEPATITIS A 2018-11-26 00:00:00 Completed [facility] Meningococcal Polysaccharide (groups A, C, Y and W-135) conjugate vaccine (MCV4P) 2018-11-26 00:00:00 Completed [facility] HEPATITIS A 2018-11-26 00:00:00 Completed [facility] Meningococcal Polysaccharide (groups A, C, Y and W-135) conjugate vaccine (MCV4P) 2018-11-26 00:00:00 Completed [facility] HEPATITIS A 2018-11-26 00:00:00 Completed [facility] Meningococcal Polysaccharide (groups A, C, Y and W-135) conjugate vaccine (MCV4P) 2018-11-26 00:00:00 Completed [facility] HEPATITIS A 2018-11-26 00:00:00 Completed [facility] Meningococcal Polysaccharide (groups A, C, Y and W-135) conjugate vaccine (MCV4P) 2018-11-26 00:00:00 Completed [facility] HEPATITIS A 2018-11-26 00:00:00 Completed [facility] Meningococcal Polysaccharide (groups A, C, Y and W-135) conjugate vaccine (MCV4P) 2018-11-26 00:00:00 Completed [facility] HEPATITIS A 2018-11-26 00:00:00 Completed [facility] HEPATITIS A 2018-11-26 00:00:00 Completed [facility] Meningococcal Polysaccharide (groups A, C, Y and W-135) conjugate vaccine (MCV4P) 2018-11-26 00:00:00 Completed [facility] Meningococcal Polysaccharide (groups A, C, Y and W-135) conjugate vaccine (MCV4P) 2018-11-26 00:00:00 Completed [facility] HEPATITIS A 2018-11-26 00:00:00 Completed [facility] Meningococcal Polysaccharide (groups A, C, Y and W-135) conjugate vaccine (MCV4P) 2018-11-26 00:00:00 Completed [facility] HEPATITIS A 2018-11-26 00:00:00 Completed [facility] Meningococcal Polysaccharide (groups A, C, Y and W-135) conjugate vaccine (MCV4P) 2018-11-26 00:00:00 Completed [facility] HEPATITIS A 2018-11-26 00:00:00 Completed [facility] Meningococcal Polysaccharide (groups A, C, Y and W-135) conjugate vaccine (MCV4P) 2018-11-26 00:00:00 Completed [facility] HEPATITIS A 2018-11-26 00:00:00 Completed [facility] Meningococcal Polysaccharide (groups A, C, Y and W-135) conjugate vaccine (MCV4P) 2018-11-26 00:00:00 Completed [facility] HEPATITIS A 2018-11-26 00:00:00 Completed [facility] Meningococcal Polysaccharide (groups A, C, Y and W-135) conjugate vaccine (MCV4P) 2018-11-26 00:00:00 Completed [facility] HEPATITIS A 2018-11-26 00:00:00 Completed [facility] Meningococcal Polysaccharide (groups A, C, Y and W-135) conjugate vaccine (MCV4P) 2018-11-26 00:00:00 Completed [facility] HEPATITIS A 2018-11-26 00:00:00 Completed [facility] Meningococcal Polysaccharide (groups A, C, Y and W-135) conjugate vaccine (MCV4P) 2018-11-26 00:00:00 Completed [facility] HEPATITIS A 2018-11-26 00:00:00 Completed [facility] Meningococcal Polysaccharide (groups A, C, Y and W-135) conjugate vaccine (MCV4P) 2018-11-26 00:00:00 Completed [facility] HEPATITIS A 2018-11-26 00:00:00 Completed [facility] Meningococcal Polysaccharide (groups A, C, Y and W-135) conjugate vaccine (MCV4P) 2018-11-26 00:00:00 Completed [facility] HEPATITIS A 2018-11-26 00:00:00 Completed [facility] Meningococcal Polysaccharide (groups A, C, Y and W-135) conjugate vaccine (MCV4P) 2018-11-26 00:00:00 Completed [facility] HEPATITIS A 2018-11-26 00:00:00 Completed [facility] Meningococcal Polysaccharide (groups A, C, Y and W-135) conjugate vaccine (MCV4P) 2018-11-26 00:00:00 Completed [facility] HEPATITIS A 2018-11-26 00:00:00 Completed [facility] Meningococcal Polysaccharide (groups A, C, Y and W-135) conjugate vaccine (MCV4P) 2018-11-26 00:00:00 Completed [facility] HEPATITIS A 2018-11-26 00:00:00 Completed [facility] Meningococcal Polysaccharide (groups A, C, Y and W-135) conjugate vaccine (MCV4P) 2018-11-26 00:00:00 Completed [facility] HEPATITIS A 2018-11-26 00:00:00 Completed [facility] Meningococcal Polysaccharide (groups A, C, Y and W-135) conjugate vaccine (MCV4P) 2018-11-26 00:00:00 Completed [facility] HEPATITIS A 2018-11-26 00:00:00 Completed [facility] Meningococcal Polysaccharide (groups A, C, Y and W-135) conjugate vaccine (MCV4P) 2018-11-26 00:00:00 Completed [facility] HEPATITIS A 2018-11-26 00:00:00 Completed [facility] Meningococcal Polysaccharide (groups A, C, Y and W-135) conjugate vaccine (MCV4P) 2018-11-26 00:00:00 Completed [facility] HEPATITIS A 2018-11-26 00:00:00 Completed [facility] Meningococcal Polysaccharide (groups A, C, Y and W-135) conjugate vaccine (MCV4P) 2018-11-26 00:00:00 Completed [facility] HEPATITIS A 2018-11-26 00:00:00 Completed [facility] Meningococcal Polysaccharide (groups A, C, Y and W-135) conjugate vaccine (MCV4P) 2018-11-26 00:00:00 Completed [facility] HEPATITIS A 2018-11-26 00:00:00 Completed [facility] Meningococcal Polysaccharide (groups A, C, Y and W-135) conjugate vaccine (MCV4P) 2018-11-26 00:00:00 Completed [facility] HEPATITIS A 2018-11-26 00:00:00 Completed [facility] Meningococcal Polysaccharide (groups A, C, Y and W-135) conjugate vaccine (MCV4P) 2018-11-26 00:00:00 Completed [facility] HEPATITIS A 2018-11-26 00:00:00 Completed [facility] Meningococcal Polysaccharide (groups A, C, Y and W-135) conjugate vaccine (MCV4P) 2018-11-26 00:00:00 Completed [facility] HEPATITIS A 2018-11-26 00:00:00 Completed [facility] Meningococcal Polysaccharide (groups A, C, Y and W-135) conjugate vaccine (MCV4P) 2018-11-26 00:00:00 Completed [facility] HEPATITIS A 2018-11-26 00:00:00 Completed [facility] Meningococcal Polysaccharide (groups A, C, Y and W-135) conjugate vaccine (MCV4P) 2018-11-26 00:00:00 Completed [facility] HEPATITIS A 2018-11-26 00:00:00 Completed [facility] Meningococcal Polysaccharide (groups A, C, Y and W-135) conjugate vaccine (MCV4P) 2018-11-26 00:00:00 Completed [facility] HEPATITIS A 2018-11-26 00:00:00 Completed [facility] Meningococcal Polysaccharide (groups A, C, Y and W-135) conjugate vaccine (MCV4P) 2018-11-26 00:00:00 Completed [facility] HEPATITIS A 2018-11-26 00:00:00 Completed [facility] Meningococcal Polysaccharide (groups A, C, Y and W-135) conjugate vaccine (MCV4P) 2018-11-26 00:00:00 Completed [facility] TDAP 2016-11-27 00:00:00 Completed [facility] TDAP 2016-11-27 00:00:00 Completed [facility] TDAP 2016-11-27 00:00:00 Completed [facility] TDAP 2016-11-27 00:00:00 Completed [facility] TDAP 2016-11-27 00:00:00 Completed [facility] TDAP 2016-11-27 00:00:00 Completed [facility] TDAP 2016-11-27 00:00:00 Completed [facility] TDAP 2016-11-27 00:00:00 Completed [facility] TDAP 2016-11-27 00:00:00 Completed [facility] TDAP 2016-11-27 00:00:00 Completed [facility] TDAP 2016-11-27 00:00:00 Completed [facility] TDAP 2016-11-27 00:00:00 Completed [facility] TDAP 2016-11-27 00:00:00 Completed [facility] TDAP 2016-11-27 00:00:00 Completed [facility] TDAP 2016-11-27 00:00:00 Completed [facility] TDAP 2016-11-27 00:00:00 Completed [facility] TDAP 2016-11-27 00:00:00 Completed [facility] TDAP 2016-11-27 00:00:00 Completed [facility] TDAP 2016-11-27 00:00:00 Completed [facility] TDAP 2016-11-27 00:00:00 Completed [facility] TDAP 2016-11-27 00:00:00 Completed [facility] TDAP 2016-11-27 00:00:00 Completed [facility] TDAP 2016-11-27 00:00:00 Completed [facility] TDAP 2016-11-27 00:00:00 Completed [facility] TDAP 2016-11-27 00:00:00 Completed [facility] TDAP 2016-11-27 00:00:00 Completed [facility] TDAP 2016-11-27 00:00:00 Completed [facility] TDAP 2016-11-27 00:00:00 Completed [facility] TDAP 2016-11-27 00:00:00 Completed [facility] TDAP 2016-11-27 00:00:00 Completed [facility] TDAP 2016-11-27 00:00:00 Completed [facility] TDAP 2016-11-27 00:00:00 Completed [facility] TDAP 2016-11-27 00:00:00 Completed [facility] TDAP 2016-11-27 00:00:00 Completed [facility] TDAP 2016-11-27 00:00:00 Completed [facility] TDAP 2016-11-27 00:00:00 Completed [facility] TDAP 2016-11-27 00:00:00 Completed [facility] TDAP 2016-11-27 00:00:00 Completed [facility] TDAP 2016-11-27 00:00:00 Completed [facility] TDAP 2016-11-27 00:00:00 Completed [facility] DTAP 2009-02-05 00:00:00 Completed [facility] MMR 2009-02-05 00:00:00 Completed [facility] Polio (IPV/OPV) 2009-02-05 00:00:00 Completed [facility] Varicella (varivax)(chicken pox) 2009-02-05 00:00:00 Completed [facility] DTAP 2009-02-05 00:00:00 Completed [facility] MMR 2009-02-05 00:00:00 Completed [facility] Polio (IPV/OPV) 2009-02-05 00:00:00 Completed [facility] Varicella (varivax)(chicken pox) 2009-02-05 00:00:00 Completed [facility] DTAP 2009-02-05 00:00:00 Completed [facility] MMR 2009-02-05 00:00:00 Completed [facility] Polio (IPV/OPV) 2009-02-05 00:00:00 Completed [facility] Varicella (varivax)(chicken pox) 2009-02-05 00:00:00 Completed [facility] DTAP 2009-02-05 00:00:00 Completed [facility] MMR 2009-02-05 00:00:00 Completed [facility] Polio (IPV/OPV) 2009-02-05 00:00:00 Completed [facility] Varicella (varivax)(chicken pox) 2009-02-05 00:00:00 Completed [facility] DTAP 2009-02-05 00:00:00 Completed [facility] MMR 2009-02-05 00:00:00 Completed [facility] Polio (IPV/OPV) 2009-02-05 00:00:00 Completed [facility] Varicella (varivax)(chicken pox) 2009-02-05 00:00:00 Completed [facility] DTAP 2009-02-05 00:00:00 Completed [facility] MMR 2009-02-05 00:00:00 Completed [facility] Polio (IPV/OPV) 2009-02-05 00:00:00 Completed [facility] Varicella (varivax)(chicken pox) 2009-02-05 00:00:00 Completed [facility] DTAP 2009-02-05 00:00:00 Completed [facility] MMR 2009-02-05 00:00:00 Completed [facility] Polio (IPV/OPV) 2009-02-05 00:00:00 Completed [facility] Varicella (varivax)(chicken pox) 2009-02-05 00:00:00 Completed [facility] DTAP 2009-02-05 00:00:00 Completed [facility] MMR 2009-02-05 00:00:00 Completed [facility] Polio (IPV/OPV) 2009-02-05 00:00:00 Completed [facility] Varicella (varivax)(chicken pox) 2009-02-05 00:00:00 Completed [facility] DTAP 2009-02-05 00:00:00 Completed [facility] MMR 2009-02-05 00:00:00 Completed [facility] Polio (IPV/OPV) 2009-02-05 00:00:00 Completed [facility] Varicella (varivax)(chicken pox) 2009-02-05 00:00:00 Completed [facility] DTAP 2009-02-05 00:00:00 Completed [facility] MMR 2009-02-05 00:00:00 Completed [facility] Polio (IPV/OPV) 2009-02-05 00:00:00 Completed [facility] Varicella (varivax)(chicken pox) 2009-02-05 00:00:00 Completed [facility] DTAP 2009-02-05 00:00:00 Completed [facility] MMR 2009-02-05 00:00:00 Completed [facility] Polio (IPV/OPV) 2009-02-05 00:00:00 Completed [facility] Varicella (varivax)(chicken pox) 2009-02-05 00:00:00 Completed [facility] DTAP 2009-02-05 00:00:00 Completed [facility] MMR 2009-02-05 00:00:00 Completed [facility] Polio (IPV/OPV) 2009-02-05 00:00:00 Completed [facility] Varicella (varivax)(chicken pox) 2009-02-05 00:00:00 Completed [facility] DTAP 2009-02-05 00:00:00 Completed [facility] DTAP 2009-02-05 00:00:00 Completed [facility] MMR 2009-02-05 00:00:00 Completed [facility] Polio (IPV/OPV) 2009-02-05 00:00:00 Completed [facility] Varicella (varivax)(chicken pox) 2009-02-05 00:00:00 Completed [facility] DTAP 2009-02-05 00:00:00 Completed [facility] MMR 2009-02-05 00:00:00 Completed [facility] MMR 2009-02-05 00:00:00 Completed [facility] Polio (IPV/OPV) 2009-02-05 00:00:00 Completed [facility] Varicella (varivax)(chicken pox) 2009-02-05 00:00:00 Completed [facility] Polio (IPV/OPV) 2009-02-05 00:00:00 Completed [facility] DTAP 2009-02-05 00:00:00 Completed [facility] MMR 2009-02-05 00:00:00 Completed [facility] Polio (IPV/OPV) 2009-02-05 00:00:00 Completed [facility] Varicella (varivax)(chicken pox) 2009-02-05 00:00:00 Completed [facility] Varicella (varivax)(chicken pox) 2009-02-05 00:00:00 Completed [facility] DTAP 2009-02-05 00:00:00 Completed [facility] MMR 2009-02-05 00:00:00 Completed [facility] Polio (IPV/OPV) 2009-02-05 00:00:00 Completed [facility] Varicella (varivax)(chicken pox) 2009-02-05 00:00:00 Completed [facility] DTAP 2009-02-05 00:00:00 Completed [facility] MMR 2009-02-05 00:00:00 Completed [facility] Polio (IPV/OPV) 2009-02-05 00:00:00 Completed [facility] Varicella (varivax)(chicken pox) 2009-02-05 00:00:00 Completed [facility] DTAP 2009-02-05 00:00:00 Completed [facility] MMR 2009-02-05 00:00:00 Completed [facility] Polio (IPV/OPV) 2009-02-05 00:00:00 Completed [facility] Varicella (varivax)(chicken pox) 2009-02-05 00:00:00 Completed [facility] DTAP 2009-02-05 00:00:00 Completed [facility] MMR 2009-02-05 00:00:00 Completed [facility] Polio (IPV/OPV) 2009-02-05 00:00:00 Completed [facility] Varicella (varivax)(chicken pox) 2009-02-05 00:00:00 Completed [facility] DTAP 2009-02-05 00:00:00 Completed [facility] MMR 2009-02-05 00:00:00 Completed [facility] Polio (IPV/OPV) 2009-02-05 00:00:00 Completed [facility] Varicella (varivax)(chicken pox) 2009-02-05 00:00:00 Completed [facility] DTAP 2009-02-05 00:00:00 Completed [facility] MMR 2009-02-05 00:00:00 Completed [facility] Polio (IPV/OPV) 2009-02-05 00:00:00 Completed [facility] Varicella (varivax)(chicken pox) 2009-02-05 00:00:00 Completed [facility] DTAP 2009-02-05 00:00:00 Completed [facility] MMR 2009-02-05 00:00:00 Completed [facility] Polio (IPV/OPV) 2009-02-05 00:00:00 Completed [facility] Varicella (varivax)(chicken pox) 2009-02-05 00:00:00 Completed [facility] DTAP 2009-02-05 00:00:00 Completed [facility] MMR 2009-02-05 00:00:00 Completed [facility] Polio (IPV/OPV) 2009-02-05 00:00:00 Completed [facility] Varicella (varivax)(chicken pox) 2009-02-05 00:00:00 Completed [facility] DTAP 2009-02-05 00:00:00 Completed [facility] MMR 2009-02-05 00:00:00 Completed [facility] Polio (IPV/OPV) 2009-02-05 00:00:00 Completed [facility] Varicella (varivax)(chicken pox) 2009-02-05 00:00:00 Completed [facility] DTAP 2009-02-05 00:00:00 Completed [facility] MMR 2009-02-05 00:00:00 Completed [facility] Polio (IPV/OPV) 2009-02-05 00:00:00 Completed [facility] Varicella (varivax)(chicken pox) 2009-02-05 00:00:00 Completed [facility] DTAP 2009-02-05 00:00:00 Completed [facility] MMR 2009-02-05 00:00:00 Completed [facility] Polio (IPV/OPV) 2009-02-05 00:00:00 Completed [facility] Varicella (varivax)(chicken pox) 2009-02-05 00:00:00 Completed [facility] DTAP 2009-02-05 00:00:00 Completed [facility] MMR 2009-02-05 00:00:00 Completed [facility] Polio (IPV/OPV) 2009-02-05 00:00:00 Completed [facility] Varicella (varivax)(chicken pox) 2009-02-05 00:00:00 Completed [facility] DTAP 2009-02-05 00:00:00 Completed [facility] MMR 2009-02-05 00:00:00 Completed [facility] Polio (IPV/OPV) 2009-02-05 00:00:00 Completed [facility] Varicella (varivax)(chicken pox) 2009-02-05 00:00:00 Completed [facility] DTAP 2009-02-05 00:00:00 Completed [facility] MMR 2009-02-05 00:00:00 Completed [facility] Polio (IPV/OPV) 2009-02-05 00:00:00 Completed [facility] Varicella (varivax)(chicken pox) 2009-02-05 00:00:00 Completed [facility] DTAP 2009-02-05 00:00:00 Completed [facility] MMR 2009-02-05 00:00:00 Completed [facility] Polio (IPV/OPV) 2009-02-05 00:00:00 Completed [facility] Varicella (varivax)(chicken pox) 2009-02-05 00:00:00 Completed [facility] DTAP 2009-02-05 00:00:00 Completed [facility] MMR 2009-02-05 00:00:00 Completed [facility] Polio (IPV/OPV) 2009-02-05 00:00:00 Completed [facility] Varicella (varivax)(chicken pox) 2009-02-05 00:00:00 Completed [facility] DTAP 2009-02-05 00:00:00 Completed [facility] MMR 2009-02-05 00:00:00 Completed [facility] Polio (IPV/OPV) 2009-02-05 00:00:00 Completed [facility] Varicella (varivax)(chicken pox) 2009-02-05 00:00:00 Completed [facility] DTAP 2009-02-05 00:00:00 Completed [facility] MMR 2009-02-05 00:00:00 Completed [facility] Polio (IPV/OPV) 2009-02-05 00:00:00 Completed [facility] Varicella (varivax)(chicken pox) 2009-02-05 00:00:00 Completed [facility] DTAP 2009-02-05 00:00:00 Completed [facility] MMR 2009-02-05 00:00:00 Completed [facility] Polio (IPV/OPV) 2009-02-05 00:00:00 Completed [facility] Varicella (varivax)(chicken pox) 2009-02-05 00:00:00 Completed [facility] DTAP 2009-02-05 00:00:00 Completed [facility] MMR 2009-02-05 00:00:00 Completed [facility] Polio (IPV/OPV) 2009-02-05 00:00:00 Completed [facility] Varicella (varivax)(chicken pox) 2009-02-05 00:00:00 Completed [facility] DTAP 2009-02-05 00:00:00 Completed [facility] MMR 2009-02-05 00:00:00 Completed [facility] Polio (IPV/OPV) 2009-02-05 00:00:00 Completed [facility] Varicella (varivax)(chicken pox) 2009-02-05 00:00:00 Completed [facility] DTAP 2009-02-05 00:00:00 Completed [facility] MMR 2009-02-05 00:00:00 Completed [facility] Polio (IPV/OPV) 2009-02-05 00:00:00 Completed [facility] Varicella (varivax)(chicken pox) 2009-02-05 00:00:00 Completed [facility] DTAP 2009-02-05 00:00:00 Completed [facility] MMR 2009-02-05 00:00:00 Completed [facility] Polio (IPV/OPV) 2009-02-05 00:00:00 Completed [facility] Varicella (varivax)(chicken pox) 2009-02-05 00:00:00 Completed [facility] DTAP 2009-02-05 00:00:00 Completed [facility] MMR 2009-02-05 00:00:00 Completed [facility] Polio (IPV/OPV) 2009-02-05 00:00:00 Completed [facility] Varicella (varivax)(chicken pox) 2009-02-05 00:00:00 Completed [facility] DTAP 2005-01-23 00:00:00 Completed [facility] DTAP 2005-01-23 00:00:00 Completed [facility] DTAP 2005-01-23 00:00:00 Completed [facility] DTAP 2005-01-23 00:00:00 Completed [facility] DTAP 2005-01-23 00:00:00 Completed [facility] DTAP 2005-01-23 00:00:00 Completed [facility] DTAP 2005-01-23 00:00:00 Completed [facility] DTAP 2005-01-23 00:00:00 Completed [facility] DTAP 2005-01-23 00:00:00 Completed [facility] DTAP 2005-01-23 00:00:00 Completed [facility] DTAP 2005-01-23 00:00:00 Completed [facility] DTAP 2005-01-23 00:00:00 Completed [facility] DTAP 2005-01-23 00:00:00 Completed [facility] DTAP 2005-01-23 00:00:00 Completed [facility] DTAP 2005-01-23 00:00:00 Completed [facility] DTAP 2005-01-23 00:00:00 Completed [facility] DTAP 2005-01-23 00:00:00 Completed [facility] DTAP 2005-01-23 00:00:00 Completed [facility] DTAP 2005-01-23 00:00:00 Completed [facility] DTAP 2005-01-23 00:00:00 Completed [facility] DTAP 2005-01-23 00:00:00 Completed [facility] DTAP 2005-01-23 00:00:00 Completed [facility] DTAP 2005-01-23 00:00:00 Completed [facility] DTAP 2005-01-23 00:00:00 Completed [facility] DTAP 2005-01-23 00:00:00 Completed [facility] DTAP 2005-01-23 00:00:00 Completed [facility] DTAP 2005-01-23 00:00:00 Completed [facility] DTAP 2005-01-23 00:00:00 Completed [facility] DTAP 2005-01-23 00:00:00 Completed [facility] DTAP 2005-01-23 00:00:00 Completed [facility] DTAP 2005-01-23 00:00:00 Completed [facility] DTAP 2005-01-23 00:00:00 Completed [facility] DTAP 2005-01-23 00:00:00 Completed [facility] DTAP 2005-01-23 00:00:00 Completed [facility] DTAP 2005-01-23 00:00:00 Completed [facility] DTAP 2005-01-23 00:00:00 Completed [facility] DTAP 2005-01-23 00:00:00 Completed [facility] DTAP 2005-01-23 00:00:00 Completed [facility] DTAP 2005-01-23 00:00:00 Completed [facility] DTAP 2005-01-23 00:00:00 Completed [facility] HIB 4 Dose Schedule 2004-07-31 00:00:00 Completed [facility] MMR 2004-07-31 00:00:00 Completed [facility] Polio (IPV/OPV) 2004-07-31 00:00:00 Completed [facility] Varicella (varivax)(chicken pox) 2004-07-31 00:00:00 Completed [facility] Pneumococcal 7 Conjugate, PCV7 (Prevnar7) 2004-07-31 00:00:00 Completed [facility] HIB 4 Dose Schedule 2004-07-31 00:00:00 Completed [facility] MMR 2004-07-31 00:00:00 Completed [facility] Polio (IPV/OPV) 2004-07-31 00:00:00 Completed [facility] Varicella (varivax)(chicken pox) 2004-07-31 00:00:00 Completed [facility] Pneumococcal 7 Conjugate, PCV7 (Prevnar7) 2004-07-31 00:00:00 Completed [facility] HIB 4 Dose Schedule 2004-07-31 00:00:00 Completed [facility] MMR 2004-07-31 00:00:00 Completed [facility] Polio (IPV/OPV) 2004-07-31 00:00:00 Completed [facility] Varicella (varivax)(chicken pox) 2004-07-31 00:00:00 Completed [facility] Pneumococcal 7 Conjugate, PCV7 (Prevnar7) 2004-07-31 00:00:00 Completed [facility] HIB 4 Dose Schedule 2004-07-31 00:00:00 Completed [facility] MMR 2004-07-31 00:00:00 Completed [facility] Polio (IPV/OPV) 2004-07-31 00:00:00 Completed [facility] Varicella (varivax)(chicken pox) 2004-07-31 00:00:00 Completed [facility] Pneumococcal 7 Conjugate, PCV7 (Prevnar7) 2004-07-31 00:00:00 Completed [facility] HIB 4 Dose Schedule 2004-07-31 00:00:00 Completed [facility] MMR 2004-07-31 00:00:00 Completed [facility] Polio (IPV/OPV) 2004-07-31 00:00:00 Completed [facility] Varicella (varivax)(chicken pox) 2004-07-31 00:00:00 Completed [facility] Pneumococcal 7 Conjugate, PCV7 (Prevnar7) 2004-07-31 00:00:00 Completed [facility] HIB 4 Dose Schedule 2004-07-31 00:00:00 Completed [facility] MMR 2004-07-31 00:00:00 Completed [facility] Polio (IPV/OPV) 2004-07-31 00:00:00 Completed [facility] Varicella (varivax)(chicken pox) 2004-07-31 00:00:00 Completed [facility] Pneumococcal 7 Conjugate, PCV7 (Prevnar7) 2004-07-31 00:00:00 Completed [facility] HIB 4 Dose Schedule 2004-07-31 00:00:00 Completed [facility] MMR 2004-07-31 00:00:00 Completed [facility] Polio (IPV/OPV) 2004-07-31 00:00:00 Completed [facility] Varicella (varivax)(chicken pox) 2004-07-31 00:00:00 Completed [facility] Pneumococcal 7 Conjugate, PCV7 (Prevnar7) 2004-07-31 00:00:00 Completed [facility] HIB 4 Dose Schedule 2004-07-31 00:00:00 Completed [facility] MMR 2004-07-31 00:00:00 Completed [facility] Polio (IPV/OPV) 2004-07-31 00:00:00 Completed [facility] Varicella (varivax)(chicken pox) 2004-07-31 00:00:00 Completed [facility] Pneumococcal 7 Conjugate, PCV7 (Prevnar7) 2004-07-31 00:00:00 Completed [facility] HIB 4 Dose Schedule 2004-07-31 00:00:00 Completed [facility] MMR 2004-07-31 00:00:00 Completed [facility] Polio (IPV/OPV) 2004-07-31 00:00:00 Completed [facility] Varicella (varivax)(chicken pox) 2004-07-31 00:00:00 Completed [facility] Pneumococcal 7 Conjugate, PCV7 (Prevnar7) 2004-07-31 00:00:00 Completed [facility] HIB 4 Dose Schedule 2004-07-31 00:00:00 Completed [facility] MMR 2004-07-31 00:00:00 Completed [facility] Polio (IPV/OPV) 2004-07-31 00:00:00 Completed [facility] Varicella (varivax)(chicken pox) 2004-07-31 00:00:00 Completed [facility] Pneumococcal 7 Conjugate, PCV7 (Prevnar7) 2004-07-31 00:00:00 Completed [facility] HIB 4 Dose Schedule 2004-07-31 00:00:00 Completed [facility] MMR 2004-07-31 00:00:00 Completed [facility] Polio (IPV/OPV) 2004-07-31 00:00:00 Completed [facility] Varicella (varivax)(chicken pox) 2004-07-31 00:00:00 Completed [facility] Pneumococcal 7 Conjugate, PCV7 (Prevnar7) 2004-07-31 00:00:00 Completed [facility] HIB 4 Dose Schedule 2004-07-31 00:00:00 Completed [facility] MMR 2004-07-31 00:00:00 Completed [facility] Polio (IPV/OPV) 2004-07-31 00:00:00 Completed [facility] Varicella (varivax)(chicken pox) 2004-07-31 00:00:00 Completed [facility] Pneumococcal 7 Conjugate, PCV7 (Prevnar7) 2004-07-31 00:00:00 Completed [facility] HIB 4 Dose Schedule 2004-07-31 00:00:00 Completed [facility] HIB 4 Dose Schedule 2004-07-31 00:00:00 Completed [facility] MMR 2004-07-31 00:00:00 Completed [facility] Polio (IPV/OPV) 2004-07-31 00:00:00 Completed [facility] Varicella (varivax)(chicken pox) 2004-07-31 00:00:00 Completed [facility] Pneumococcal 7 Conjugate, PCV7 (Prevnar7) 2004-07-31 00:00:00 Completed [facility] MMR 2004-07-31 00:00:00 Completed [facility] HIB 4 Dose Schedule 2004-07-31 00:00:00 Completed [facility] MMR 2004-07-31 00:00:00 Completed [facility] Polio (IPV/OPV) 2004-07-31 00:00:00 Completed [facility] Varicella (varivax)(chicken pox) 2004-07-31 00:00:00 Completed [facility] Pneumococcal 7 Conjugate, PCV7 (Prevnar7) 2004-07-31 00:00:00 Completed [facility] Polio (IPV/OPV) 2004-07-31 00:00:00 Completed [facility] HIB 4 Dose Schedule 2004-07-31 00:00:00 Completed [facility] MMR 2004-07-31 00:00:00 Completed [facility] Varicella (varivax)(chicken pox) 2004-07-31 00:00:00 Completed [facility] Polio (IPV/OPV) 2004-07-31 00:00:00 Completed [facility] Varicella (varivax)(chicken pox) 2004-07-31 00:00:00 Completed [facility] Pneumococcal 7 Conjugate, PCV7 (Prevnar7) 2004-07-31 00:00:00 Completed [facility] HIB 4 Dose Schedule 2004-07-31 00:00:00 Completed [facility] [facility]:00 Completed [facility] Pneumococcal 7 Conjugate, PCV7 (Prevnar7) 2004-07-31 00:00:00 Completed [facility] Polio (IPV/OPV) 2004-07-31 00:00:00 Completed [facility] Varicella (varivax)(chicken pox) 2004-07-31 00:00:00 Completed [facility] Pneumococcal 7 Conjugate, PCV7 (Prevnar7) 2004-07-31 00:00:00 Completed [facility] HIB 4 Dose Schedule 2004-07-31 00:00:00 Completed [facility] MMR 2004-07-31 00:00:00 Completed [facility] Polio (IPV/OPV) 2004-07-31 00:00:00 Completed [facility] Varicella (varivax)(chicken pox) 2004-07-31 00:00:00 Completed [facility] Pneumococcal 7 Conjugate, PCV7 (Prevnar7) 2004-07-31 00:00:00 Completed [facility] HIB 4 Dose Schedule 2004-07-31 00:00:00 Completed [facility] MMR 2004-07-31 00:00:00 Completed [facility] Polio (IPV/OPV) 2004-07-31 00:00:00 Completed [facility] Varicella (varivax)(chicken pox) 2004-07-31 00:00:00 Completed [facility] Pneumococcal 7 Conjugate, PCV7 (Prevnar7) 2004-07-31 00:00:00 Completed [facility] HIB 4 Dose Schedule 2004-07-31 00:00:00 Completed [facility] MMR 2004-07-31 00:00:00 Completed [facility] Polio (IPV/OPV) 2004-07-31 00:00:00 Completed [facility] Varicella (varivax)(chicken pox) 2004-07-31 00:00:00 Completed [facility] Pneumococcal 7 Conjugate, PCV7 (Prevnar7) 2004-07-31 00:00:00 Completed [facility] HIB 4 Dose Schedule 2004-07-31 00:00:00 Completed [facility] MMR 2004-07-31 00:00:00 Completed [facility] Polio (IPV/OPV) 2004-07-31 00:00:00 Completed [facility] Varicella (varivax)(chicken pox) 2004-07-31 00:00:00 Completed [facility] Pneumococcal 7 Conjugate, PCV7 (Prevnar7) 2004-07-31 00:00:00 Completed [facility] HIB 4 Dose Schedule 2004-07-31 00:00:00 Completed [facility] MMR 2004-07-31 00:00:00 Completed [facility] Polio (IPV/OPV) 2004-07-31 00:00:00 Completed [facility] Varicella (varivax)(chicken pox) 2004-07-31 00:00:00 Completed [facility] Pneumococcal 7 Conjugate, PCV7 (Prevnar7) 2004-07-31 00:00:00 Completed [facility] HIB 4 Dose Schedule 2004-07-31 00:00:00 Completed [facility] MMR 2004-07-31 00:00:00 Completed [facility] Polio (IPV/OPV) 2004-07-31 00:00:00 Completed [facility] Varicella (varivax)(chicken pox) 2004-07-31 00:00:00 Completed [facility] Pneumococcal 7 Conjugate, PCV7 (Prevnar7) 2004-07-31 00:00:00 Completed [facility] HIB 4 Dose Schedule 2004-07-31 00:00:00 Completed [facility] MMR 2004-07-31 00:00:00 Completed [facility] Polio (IPV/OPV) 2004-07-31 00:00:00 Completed [facility] Varicella (varivax)(chicken pox) 2004-07-31 00:00:00 Completed [facility] Pneumococcal 7 Conjugate, PCV7 (Prevnar7) 2004-07-31 00:00:00 Completed [facility] HIB 4 Dose Schedule 2004-07-31 00:00:00 Completed [facility] MMR 2004-07-31 00:00:00 Completed [facility] Polio (IPV/OPV) 2004-07-31 00:00:00 Completed [facility] Varicella (varivax)(chicken pox) 2004-07-31 00:00:00 Completed [facility] Pneumococcal 7 Conjugate, PCV7 (Prevnar7) 2004-07-31 00:00:00 Completed [facility] HIB 4 Dose Schedule 2004-07-31 00:00:00 Completed [facility] MMR 2004-07-31 00:00:00 Completed [facility] Polio (IPV/OPV) 2004-07-31 00:00:00 Completed [facility] Varicella (varivax)(chicken pox) 2004-07-31 00:00:00 Completed [facility] Pneumococcal 7 Conjugate, PCV7 (Prevnar7) 2004-07-31 00:00:00 Completed [facility] HIB 4 Dose Schedule 2004-07-31 00:00:00 Completed [facility] MMR 2004-07-31 00:00:00 Completed [facility] Polio (IPV/OPV) 2004-07-31 00:00:00 Completed [facility] Varicella (varivax)(chicken pox) 2004-07-31 00:00:00 Completed [facility] Pneumococcal 7 Conjugate, PCV7 (Prevnar7) 2004-07-31 00:00:00 Completed [facility] HIB 4 Dose Schedule 2004-07-31 00:00:00 Completed [facility] MMR 2004-07-31 00:00:00 Completed [facility] Polio (IPV/OPV) 2004-07-31 00:00:00 Completed [facility] Varicella (varivax)(chicken pox) 2004-07-31 00:00:00 Completed [facility] Pneumococcal 7 Conjugate, PCV7 (Prevnar7) 2004-07-31 00:00:00 Completed [facility] HIB 4 Dose Schedule 2004-07-31 00:00:00 Completed [facility] MMR 2004-07-31 00:00:00 Completed [facility] Polio (IPV/OPV) 2004-07-31 00:00:00 Completed [facility] Varicella (varivax)(chicken pox) 2004-07-31 00:00:00 Completed [facility] Pneumococcal 7 Conjugate, PCV7 (Prevnar7) 2004-07-31 00:00:00 Completed [facility] HIB 4 Dose Schedule 2004-07-31 00:00:00 Completed [facility] MMR 2004-07-31 00:00:00 Completed [facility] Polio (IPV/OPV) 2004-07-31 00:00:00 Completed [facility] Varicella (varivax)(chicken pox) 2004-07-31 00:00:00 Completed [facility] Pneumococcal 7 Conjugate, PCV7 (Prevnar7) 2004-07-31 00:00:00 Completed [facility] HIB 4 Dose Schedule 2004-07-31 00:00:00 Completed [facility] MMR 2004-07-31 00:00:00 Completed [facility] Polio (IPV/OPV) 2004-07-31 00:00:00 Completed [facility] Varicella (varivax)(chicken pox) 2004-07-31 00:00:00 Completed [facility] Pneumococcal 7 Conjugate, PCV7 (Prevnar7) 2004-07-31 00:00:00 Completed [facility] HIB 4 Dose Schedule 2004-07-31 00:00:00 Completed [facility] MMR 2004-07-31 00:00:00 Completed [facility] Polio (IPV/OPV) 2004-07-31 00:00:00 Completed [facility] Varicella (varivax)(chicken pox) 2004-07-31 00:00:00 Completed [facility] Pneumococcal 7 Conjugate, PCV7 (Prevnar7) 2004-07-31 00:00:00 Completed [facility] HIB 4 Dose Schedule 2004-07-31 00:00:00 Completed [facility] MMR 2004-07-31 00:00:00 Completed [facility] Polio (IPV/OPV) 2004-07-31 00:00:00 Completed [facility] Varicella (varivax)(chicken pox) 2004-07-31 00:00:00 Completed [facility] Pneumococcal 7 Conjugate, PCV7 (Prevnar7) 2004-07-31 00:00:00 Completed [facility] HIB 4 Dose Schedule 2004-07-31 00:00:00 Completed [facility] MMR 2004-07-31 00:00:00 Completed [facility] Polio (IPV/OPV) 2004-07-31 00:00:00 Completed [facility] Varicella (varivax)(chicken pox) 2004-07-31 00:00:00 Completed [facility] Pneumococcal 7 Conjugate, PCV7 (Prevnar7) 2004-07-31 00:00:00 Completed [facility] HIB 4 Dose Schedule 2004-07-31 00:00:00 Completed [facility] MMR 2004-07-31 00:00:00 Completed [facility] Polio (IPV/OPV) 2004-07-31 00:00:00 Completed [facility] Varicella (varivax)(chicken pox) 2004-07-31 00:00:00 Completed [facility] Pneumococcal 7 Conjugate, PCV7 (Prevnar7) 2004-07-31 00:00:00 Completed [facility] HIB 4 Dose Schedule 2004-07-31 00:00:00 Completed [facility] MMR 2004-07-31 00:00:00 Completed [facility] Polio (IPV/OPV) 2004-07-31 00:00:00 Completed [facility] Varicella (varivax)(chicken pox) 2004-07-31 00:00:00 Completed [facility] Pneumococcal 7 Conjugate, PCV7 (Prevnar7) 2004-07-31 00:00:00 Completed [facility] HIB 4 Dose Schedule 2004-07-31 00:00:00 Completed [facility] MMR 2004-07-31 00:00:00 Completed [facility] Polio (IPV/OPV) 2004-07-31 00:00:00 Completed [facility] Varicella (varivax)(chicken pox) 2004-07-31 00:00:00 Completed [facility] Pneumococcal 7 Conjugate, PCV7 (Prevnar7) 2004-07-31 00:00:00 Completed [facility] HIB 4 Dose Schedule 2004-07-31 00:00:00 Completed [facility] MMR 2004-07-31 00:00:00 Completed [facility] Polio (IPV/OPV) 2004-07-31 00:00:00 Completed [facility] Varicella (varivax)(chicken pox) 2004-07-31 00:00:00 Completed [facility] Pneumococcal 7 Conjugate, PCV7 (Prevnar7) 2004-07-31 00:00:00 Completed [facility] HIB 4 Dose Schedule 2004-07-31 00:00:00 Completed [facility] MMR 2004-07-31 00:00:00 Completed [facility] Polio (IPV/OPV) 2004-07-31 00:00:00 Completed [facility] Varicella (varivax)(chicken pox) 2004-07-31 00:00:00 Completed [facility] Pneumococcal 7 Conjugate, PCV7 (Prevnar7) 2004-07-31 00:00:00 Completed [facility] HIB 4 Dose Schedule 2004-07-31 00:00:00 Completed [facility] MMR 2004-07-31 00:00:00 Completed [facility] Polio (IPV/OPV) 2004-07-31 00:00:00 Completed [facility] Varicella (varivax)(chicken pox) 2004-07-31 00:00:00 Completed [facility] Pneumococcal 7 Conjugate, PCV7 (Prevnar7) 2004-07-31 00:00:00 Completed [facility] DTAP 2004-04-24 00:00:00 Completed [facility] HIB 4 Dose Schedule 2004-04-24 00:00:00 Completed [facility] Pneumococcal 7 Conjugate, PCV7 (Prevnar7) 2004-04-24 00:00:00 Completed [facility] DTAP 2004-04-24 00:00:00 Completed [facility] HIB 4 Dose Schedule 2004-04-24 00:00:00 Completed [facility] Pneumococcal 7 Conjugate, PCV7 (Prevnar7) 2004-04-24 00:00:00 Completed [facility] DTAP 2004-04-24 00:00:00 Completed [facility] HIB 4 Dose Schedule 2004-04-24 00:00:00 Completed [facility] Pneumococcal 7 Conjugate, PCV7 (Prevnar7) 2004-04-24 00:00:00 Completed [facility] DTAP 2004-04-24 00:00:00 Completed [facility] HIB 4 Dose Schedule 2004-04-24 00:00:00 Completed [facility] Pneumococcal 7 Conjugate, PCV7 (Prevnar7) 2004-04-24 00:00:00 Completed [facility] DTAP 2004-04-24 00:00:00 Completed [facility] HIB 4 Dose Schedule 2004-04-24 00:00:00 Completed [facility] Pneumococcal 7 Conjugate, PCV7 (Prevnar7) 2004-04-24 00:00:00 Completed [facility] DTAP 2004-04-24 00:00:00 Completed [facility] HIB 4 Dose Schedule 2004-04-24 00:00:00 Completed [facility] Pneumococcal 7 Conjugate, PCV7 (Prevnar7) 2004-04-24 00:00:00 Completed [facility] DTAP 2004-04-24 00:00:00 Completed [facility] HIB 4 Dose Schedule 2004-04-24 00:00:00 Completed [facility] Pneumococcal 7 Conjugate, PCV7 (Prevnar7) 2004-04-24 00:00:00 Completed [facility] DTAP 2004-04-24 00:00:00 Completed [facility] HIB 4 Dose Schedule 2004-04-24 00:00:00 Completed [facility] Pneumococcal 7 Conjugate, PCV7 (Prevnar7) 2004-04-24 00:00:00 Completed [facility] DTAP 2004-04-24 00:00:00 Completed [facility] HIB 4 Dose Schedule 2004-04-24 00:00:00 Completed [facility] Pneumococcal 7 Conjugate, PCV7 (Prevnar7) 2004-04-24 00:00:00 Completed [facility] DTAP 2004-04-24 00:00:00 Completed [facility] HIB 4 Dose Schedule 2004-04-24 00:00:00 Completed [facility] Pneumococcal 7 Conjugate, PCV7 (Prevnar7) 2004-04-24 00:00:00 Completed [facility] DTAP 2004-04-24 00:00:00 Completed [facility] HIB 4 Dose Schedule 2004-04-24 00:00:00 Completed [facility] Pneumococcal 7 Conjugate, PCV7 (Prevnar7) 2004-04-24 00:00:00 Completed [facility] DTAP 2004-04-24 00:00:00 Completed [facility] HIB 4 Dose Schedule 2004-04-24 00:00:00 Completed [facility] DTAP 2004-04-24 00:00:00 Completed [facility] Pneumococcal 7 Conjugate, PCV7 (Prevnar7) 2004-04-24 00:00:00 Completed [facility] HIB 4 Dose Schedule 2004-04-24 00:00:00 Completed [facility] DTAP 2004-04-24 00:00:00 Completed [facility] HIB 4 Dose Schedule 2004-04-24 00:00:00 Completed [facility] Pneumococcal 7 Conjugate, PCV7 (Prevnar7) 2004-04-24 00:00:00 Completed [facility] DTAP 2004-04-24 00:00:00 Completed [facility] HIB 4 Dose Schedule 2004-04-24 00:00:00 Completed [facility] Pneumococcal 7 Conjugate, PCV7 (Prevnar7) 2004-04-24 00:00:00 Completed [facility] DTAP 2004-04-24 00:00:00 Completed [facility] HIB 4 Dose Schedule 2004-04-24 00:00:00 Completed [facility] Pneumococcal 7 Conjugate, PCV7 (Prevnar7) 2004-04-24 00:00:00 Completed [facility] DTAP 2004-04-24 00:00:00 Completed [facility] Pneumococcal 7 Conjugate, PCV7 (Prevnar7) 2004-04-24 00:00:00 Completed [facility] HIB 4 Dose Schedule 2004-04-24 00:00:00 Completed [facility] Pneumococcal 7 Conjugate, PCV7 (Prevnar7) 2004-04-24 00:00:00 Completed [facility] DTAP 2004-04-24 00:00:00 Completed [facility] HIB 4 Dose Schedule 2004-04-24 00:00:00 Completed [facility] Pneumococcal 7 Conjugate, PCV7 (Prevnar7) 2004-04-24 00:00:00 Completed [facility] DTAP 2004-04-24 00:00:00 Completed [facility] HIB 4 Dose Schedule 2004-04-24 00:00:00 Completed [facility] Pneumococcal 7 Conjugate, PCV7 (Prevnar7) 2004-04-24 00:00:00 Completed [facility] DTAP 2004-04-24 00:00:00 Completed [facility] HIB 4 Dose Schedule 2004-04-24 00:00:00 Completed [facility] Pneumococcal 7 Conjugate, PCV7 (Prevnar7) 2004-04-24 00:00:00 Completed [facility] DTAP 2004-04-24 00:00:00 Completed [facility] HIB 4 Dose Schedule 2004-04-24 00:00:00 Completed [facility] Pneumococcal 7 Conjugate, PCV7 (Prevnar7) 2004-04-24 00:00:00 Completed [facility] DTAP 2004-04-24 00:00:00 Completed [facility] HIB 4 Dose Schedule 2004-04-24 00:00:00 Completed [facility] Pneumococcal 7 Conjugate, PCV7 (Prevnar7) 2004-04-24 00:00:00 Completed [facility] DTAP 2004-04-24 00:00:00 Completed [facility] HIB 4 Dose Schedule 2004-04-24 00:00:00 Completed [facility] Pneumococcal 7 Conjugate, PCV7 (Prevnar7) 2004-04-24 00:00:00 Completed [facility] DTAP 2004-04-24 00:00:00 Completed [facility] HIB 4 Dose Schedule 2004-04-24 00:00:00 Completed [facility] Pneumococcal 7 Conjugate, PCV7 (Prevnar7) 2004-04-24 00:00:00 Completed [facility] DTAP 2004-04-24 00:00:00 Completed [facility] HIB 4 Dose Schedule 2004-04-24 00:00:00 Completed [facility] Pneumococcal 7 Conjugate, PCV7 (Prevnar7) 2004-04-24 00:00:00 Completed [facility] DTAP 2004-04-24 00:00:00 Completed [facility] HIB 4 Dose Schedule 2004-04-24 00:00:00 Completed [facility] Pneumococcal 7 Conjugate, PCV7 (Prevnar7) 2004-04-24 00:00:00 Completed [facility] DTAP 2004-04-24 00:00:00 Completed [facility] HIB 4 Dose Schedule 2004-04-24 00:00:00 Completed [facility] Pneumococcal 7 Conjugate, PCV7 (Prevnar7) 2004-04-24 00:00:00 Completed [facility] DTAP 2004-04-24 00:00:00 Completed [facility] HIB 4 Dose Schedule 2004-04-24 00:00:00 Completed [facility] Pneumococcal 7 Conjugate, PCV7 (Prevnar7) 2004-04-24 00:00:00 Completed [facility] DTAP 2004-04-24 00:00:00 Completed [facility] HIB 4 Dose Schedule 2004-04-24 00:00:00 Completed [facility] Pneumococcal 7 Conjugate, PCV7 (Prevnar7) 2004-04-24 00:00:00 Completed [facility] DTAP 2004-04-24 00:00:00 Completed [facility] HIB 4 Dose Schedule 2004-04-24 00:00:00 Completed [facility] Pneumococcal 7 Conjugate, PCV7 (Prevnar7) 2004-04-24 00:00:00 Completed [facility] DTAP 2004-04-24 00:00:00 Completed [facility] HIB 4 Dose Schedule 2004-04-24 00:00:00 Completed [facility] Pneumococcal 7 Conjugate, PCV7 (Prevnar7) 2004-04-24 00:00:00 Completed [facility] DTAP 2004-04-24 00:00:00 Completed [facility] HIB 4 Dose Schedule 2004-04-24 00:00:00 Completed [facility] Pneumococcal 7 Conjugate, PCV7 (Prevnar7) 2004-04-24 00:00:00 Completed [facility] DTAP 2004-04-24 00:00:00 Completed [facility] HIB 4 Dose Schedule 2004-04-24 00:00:00 Completed [facility] Pneumococcal 7 Conjugate, PCV7 (Prevnar7) 2004-04-24 00:00:00 Completed [facility] DTAP 2004-04-24 00:00:00 Completed [facility] HIB 4 Dose Schedule 2004-04-24 00:00:00 Completed [facility] Pneumococcal 7 Conjugate, PCV7 (Prevnar7) 2004-04-24 00:00:00 Completed [facility] DTAP 2004-04-24 00:00:00 Completed [facility] HIB 4 Dose Schedule 2004-04-24 00:00:00 Completed [facility] Pneumococcal 7 Conjugate, PCV7 (Prevnar7) 2004-04-24 00:00:00 Completed [facility] DTAP 2004-04-24 00:00:00 Completed [facility] HIB 4 Dose Schedule 2004-04-24 00:00:00 Completed [facility] Pneumococcal 7 Conjugate, PCV7 (Prevnar7) 2004-04-24 00:00:00 Completed [facility] DTAP 2004-04-24 00:00:00 Completed [facility] HIB 4 Dose Schedule 2004-04-24 00:00:00 Completed [facility] Pneumococcal 7 Conjugate, PCV7 (Prevnar7) 2004-04-24 00:00:00 Completed [facility] DTAP 2004-04-24 00:00:00 Completed [facility] HIB 4 Dose Schedule 2004-04-24 00:00:00 Completed [facility] Pneumococcal 7 Conjugate, PCV7 (Prevnar7) 2004-04-24 00:00:00 Completed [facility] DTAP 2004-04-24 00:00:00 Completed [facility] HIB 4 Dose Schedule 2004-04-24 00:00:00 Completed [facility] Pneumococcal 7 Conjugate, PCV7 (Prevnar7) 2004-04-24 00:00:00 Completed [facility] DTAP 2004-04-24 00:00:00 Completed [facility] HIB 4 Dose Schedule 2004-04-24 00:00:00 Completed [facility] Pneumococcal 7 Conjugate, PCV7 (Prevnar7) 2004-04-24 00:00:00 Completed [facility] DTAP 2004-01-26 00:00:00 Completed [facility] HIB 4 Dose Schedule 2004-01-26 00:00:00 Completed [facility] Hep B, Adol or Pedi Dosage 2004-01-26 00:00:00 Completed [facility] Polio (IPV/OPV) 2004-01-26 00:00:00 Completed [facility] Pneumococcal 7 Conjugate, PCV7 (Prevnar7) 2004-01-26 00:00:00 Completed [facility] DTAP 2004-01-26 00:00:00 Completed [facility] HIB 4 Dose Schedule 2004-01-26 00:00:00 Completed [facility] Hep B, Adol or Pedi Dosage 2004-01-26 00:00:00 Completed [facility] Polio (IPV/OPV) 2004-01-26 00:00:00 Completed [facility] Pneumococcal 7 Conjugate, PCV7 (Prevnar7) 2004-01-26 00:00:00 Completed [facility] DTAP 2004-01-26 00:00:00 Completed [facility] HIB 4 Dose Schedule 2004-01-26 00:00:00 Completed [facility] Hep B, Adol or Pedi Dosage 2004-01-26 00:00:00 Completed [facility] Polio (IPV/OPV) 2004-01-26 00:00:00 Completed [facility] Pneumococcal 7 Conjugate, PCV7 (Prevnar7) 2004-01-26 00:00:00 Completed [facility] DTAP 2004-01-26 00:00:00 Completed [facility] HIB 4 Dose Schedule 2004-01-26 00:00:00 Completed [facility] Hep B, Adol or Pedi Dosage 2004-01-26 00:00:00 Completed [facility] Polio (IPV/OPV) 2004-01-26 00:00:00 Completed [facility] Pneumococcal 7 Conjugate, PCV7 (Prevnar7) 2004-01-26 00:00:00 Completed [facility] DTAP 2004-01-26 00:00:00 Completed [facility] HIB 4 Dose Schedule 2004-01-26 00:00:00 Completed [facility] Hep B, Adol or Pedi Dosage 2004-01-26 00:00:00 Completed [facility] Polio (IPV/OPV) 2004-01-26 00:00:00 Completed [facility] Pneumococcal 7 Conjugate, PCV7 (Prevnar7) 2004-01-26 00:00:00 Completed [facility] DTAP 2004-01-26 00:00:00 Completed [facility] HIB 4 Dose Schedule 2004-01-26 00:00:00 Completed [facility] Hep B, Adol or Pedi Dosage 2004-01-26 00:00:00 Completed [facility] Polio (IPV/OPV) 2004-01-26 00:00:00 Completed [facility] Pneumococcal 7 Conjugate, PCV7 (Prevnar7) 2004-01-26 00:00:00 Completed [facility] DTAP 2004-01-26 00:00:00 Completed [facility] HIB 4 Dose Schedule 2004-01-26 00:00:00 Completed [facility] Hep B, Adol or Pedi Dosage 2004-01-26 00:00:00 Completed [facility] Polio (IPV/OPV) 2004-01-26 00:00:00 Completed [facility] Pneumococcal 7 Conjugate, PCV7 (Prevnar7) 2004-01-26 00:00:00 Completed [facility] DTAP 2004-01-26 00:00:00 Completed [facility] HIB 4 Dose Schedule 2004-01-26 00:00:00 Completed [facility] Hep B, Adol or Pedi Dosage 2004-01-26 00:00:00 Completed [facility] Polio (IPV/OPV) 2004-01-26 00:00:00 Completed [facility] Pneumococcal 7 Conjugate, PCV7 (Prevnar7) 2004-01-26 00:00:00 Completed [facility] DTAP 2004-01-26 00:00:00 Completed [facility] HIB 4 Dose Schedule 2004-01-26 00:00:00 Completed [facility] Hep B, Adol or Pedi Dosage 2004-01-26 00:00:00 Completed [facility] Polio (IPV/OPV) 2004-01-26 00:00:00 Completed [facility] Pneumococcal 7 Conjugate, PCV7 (Prevnar7) 2004-01-26 00:00:00 Completed [facility] DTAP 2004-01-26 00:00:00 Completed [facility] HIB 4 Dose Schedule 2004-01-26 00:00:00 Completed [facility] Hep B, Adol or Pedi Dosage 2004-01-26 00:00:00 Completed [facility] Polio (IPV/OPV) 2004-01-26 00:00:00 Completed [facility] Pneumococcal 7 Conjugate, PCV7 (Prevnar7) 2004-01-26 00:00:00 Completed [facility] DTAP 2004-01-26 00:00:00 Completed [facility] HIB 4 Dose Schedule 2004-01-26 00:00:00 Completed [facility] Hep B, Adol or Pedi Dosage 2004-01-26 00:00:00 Completed [facility] Polio (IPV/OPV) 2004-01-26 00:00:00 Completed [facility] Pneumococcal 7 Conjugate, PCV7 (Prevnar7) 2004-01-26 00:00:00 Completed [facility] DTAP 2004-01-26 00:00:00 Completed [facility] DTAP 2004-01-26 00:00:00 Completed [facility] HIB 4 Dose Schedule 2004-01-26 00:00:00 Completed [facility] Hep B, Adol or Pedi Dosage 2004-01-26 00:00:00 Completed [facility] Polio (IPV/OPV) 2004-01-26 00:00:00 Completed [facility] Pneumococcal 7 Conjugate, PCV7 (Prevnar7) 2004-01-26 00:00:00 Completed [facility] HIB 4 Dose Schedule 2004-01-26 00:00:00 Completed [facility] DTAP 2004-01-26 00:00:00 Completed [facility] HIB 4 Dose Schedule 2004-01-26 00:00:00 Completed [facility] Hep B, Adol or Pedi Dosage 2004-01-26 00:00:00 Completed [facility] Polio (IPV/OPV) 2004-01-26 00:00:00 Completed [facility] Pneumococcal 7 Conjugate, PCV7 (Prevnar7) 2004-01-26 00:00:00 Completed [facility] Hep B, Adol or Pedi Dosage 2004-01-26 00:00:00 Completed [facility] DTAP 2004-01-26 00:00:00 Completed [facility] HIB 4 Dose Schedule 2004-01-26 00:00:00 Completed [facility] Hep B, Adol or Pedi Dosage 2004-01-26 00:00:00 Completed [facility] Polio (IPV/OPV) 2004-01-26 00:00:00 Completed [facility] Pneumococcal 7 Conjugate, PCV7 (Prevnar7) 2004-01-26 00:00:00 Completed [facility] Polio (IPV/OPV) 2004-01-26 00:00:00 Completed [facility] DTAP 2004-01-26 00:00:00 Completed [facility] HIB 4 Dose Schedule 2004-01-26 00:00:00 Completed [facility] Hep B, Adol or Pedi Dosage 2004-01-26 00:00:00 Completed [facility] Polio (IPV/OPV) 2004-01-26 00:00:00 Completed [facility] Pneumococcal 7 Conjugate, PCV7 (Prevnar7) 2004-01-26 00:00:00 Completed [facility] Pneumococcal 7 Conjugate, PCV7 (Prevnar7) 2004-01-26 00:00:00 Completed [facility] DTAP 2004-01-26 00:00:00 Completed [facility] HIB 4 Dose Schedule 2004-01-26 00:00:00 Completed [facility] Hep B, Adol or Pedi Dosage 2004-01-26 00:00:00 Completed [facility] Polio (IPV/OPV) 2004-01-26 00:00:00 Completed [facility] Pneumococcal 7 Conjugate, PCV7 (Prevnar7) 2004-01-26 00:00:00 Completed [facility] DTAP 2004-01-26 00:00:00 Completed [facility] HIB 4 Dose Schedule 2004-01-26 00:00:00 Completed [facility] Hep B, Adol or Pedi Dosage 2004-01-26 00:00:00 Completed [facility] Polio (IPV/OPV) 2004-01-26 00:00:00 Completed [facility] Pneumococcal 7 Conjugate, PCV7 (Prevnar7) 2004-01-26 00:00:00 Completed [facility] DTAP 2004-01-26 00:00:00 Completed [facility] HIB 4 Dose Schedule 2004-01-26 00:00:00 Completed [facility] Hep B, Adol or Pedi Dosage 2004-01-26 00:00:00 Completed [facility] Polio (IPV/OPV) 2004-01-26 00:00:00 Completed [facility] Pneumococcal 7 Conjugate, PCV7 (Prevnar7) 2004-01-26 00:00:00 Completed [facility] DTAP 2004-01-26 00:00:00 Completed [facility] HIB 4 Dose Schedule 2004-01-26 00:00:00 Completed [facility] Hep B, Adol or Pedi Dosage 2004-01-26 00:00:00 Completed [facility] Polio (IPV/OPV) 2004-01-26 00:00:00 Completed [facility] Pneumococcal 7 Conjugate, PCV7 (Prevnar7) 2004-01-26 00:00:00 Completed [facility] DTAP 2004-01-26 00:00:00 Completed [facility] HIB 4 Dose Schedule 2004-01-26 00:00:00 Completed [facility] Hep B, Adol or Pedi Dosage 2004-01-26 00:00:00 Completed [facility] Polio (IPV/OPV) 2004-01-26 00:00:00 Completed [facility] Pneumococcal 7 Conjugate, PCV7 (Prevnar7) 2004-01-26 00:00:00 Completed [facility] DTAP 2004-01-26 00:00:00 Completed [facility] HIB 4 Dose Schedule 2004-01-26 00:00:00 Completed [facility] Hep B, Adol or Pedi Dosage 2004-01-26 00:00:00 Completed [facility] Polio (IPV/OPV) 2004-01-26 00:00:00 Completed [facility] Pneumococcal 7 Conjugate, PCV7 (Prevnar7) 2004-01-26 00:00:00 Completed [facility] DTAP 2004-01-26 00:00:00 Completed [facility] HIB 4 Dose Schedule 2004-01-26 00:00:00 Completed [facility] Hep B, Adol or Pedi Dosage 2004-01-26 00:00:00 Completed [facility] Polio (IPV/OPV) 2004-01-26 00:00:00 Completed [facility] Pneumococcal 7 Conjugate, PCV7 (Prevnar7) 2004-01-26 00:00:00 Completed [facility] DTAP 2004-01-26 00:00:00 Completed [facility] HIB 4 Dose Schedule 2004-01-26 00:00:00 Completed [facility] Hep B, Adol or Pedi Dosage 2004-01-26 00:00:00 Completed [facility] Polio (IPV/OPV) 2004-01-26 00:00:00 Completed [facility] Pneumococcal 7 Conjugate, PCV7 (Prevnar7) 2004-01-26 00:00:00 Completed [facility] DTAP 2004-01-26 00:00:00 Completed [facility] HIB 4 Dose Schedule 2004-01-26 00:00:00 Completed [facility] Hep B, Adol or Pedi Dosage 2004-01-26 00:00:00 Completed [facility] Polio (IPV/OPV) 2004-01-26 00:00:00 Completed [facility] Pneumococcal 7 Conjugate, PCV7 (Prevnar7) 2004-01-26 00:00:00 Completed [facility] DTAP 2004-01-26 00:00:00 Completed [facility] HIB 4 Dose Schedule 2004-01-26 00:00:00 Completed [facility] Hep B, Adol or Pedi Dosage 2004-01-26 00:00:00 Completed [facility] Polio (IPV/OPV) 2004-01-26 00:00:00 Completed [facility] Pneumococcal 7 Conjugate, PCV7 (Prevnar7) 2004-01-26 00:00:00 Completed [facility] DTAP 2004-01-26 00:00:00 Completed [facility] HIB 4 Dose Schedule 2004-01-26 00:00:00 Completed [facility] Hep B, Adol or Pedi Dosage 2004-01-26 00:00:00 Completed [facility] Polio (IPV/OPV) 2004-01-26 00:00:00 Completed [facility] Pneumococcal 7 Conjugate, PCV7 (Prevnar7) 2004-01-26 00:00:00 Completed [facility] DTAP 2004-01-26 00:00:00 Completed [facility] HIB 4 Dose Schedule 2004-01-26 00:00:00 Completed [facility] Hep B, Adol or Pedi Dosage 2004-01-26 00:00:00 Completed [facility] Polio (IPV/OPV) 2004-01-26 00:00:00 Completed [facility] Pneumococcal 7 Conjugate, PCV7 (Prevnar7) 2004-01-26 00:00:00 Completed [facility] DTAP 2004-01-26 00:00:00 Completed [facility] HIB 4 Dose Schedule 2004-01-26 00:00:00 Completed [facility] Hep B, Adol or Pedi Dosage 2004-01-26 00:00:00 Completed [facility] Polio (IPV/OPV) 2004-01-26 00:00:00 Completed [facility] Pneumococcal 7 Conjugate, PCV7 (Prevnar7) 2004-01-26 00:00:00 Completed [facility] DTAP 2004-01-26 00:00:00 Completed [facility] HIB 4 Dose Schedule 2004-01-26 00:00:00 Completed [facility] Hep B, Adol or Pedi Dosage 2004-01-26 00:00:00 Completed [facility] Polio (IPV/OPV) 2004-01-26 00:00:00 Completed [facility] Pneumococcal 7 Conjugate, PCV7 (Prevnar7) 2004-01-26 00:00:00 Completed [facility] DTAP 2004-01-26 00:00:00 Completed [facility] HIB 4 Dose Schedule 2004-01-26 00:00:00 Completed [facility] Hep B, Adol or Pedi Dosage 2004-01-26 00:00:00 Completed [facility] Polio (IPV/OPV) 2004-01-26 00:00:00 Completed [facility] Pneumococcal 7 Conjugate, PCV7 (Prevnar7) 2004-01-26 00:00:00 Completed [facility] DTAP 2004-01-26 00:00:00 Completed [facility] HIB 4 Dose Schedule 2004-01-26 00:00:00 Completed [facility] Hep B, Adol or Pedi Dosage 2004-01-26 00:00:00 Completed [facility] Polio (IPV/OPV) 2004-01-26 00:00:00 Completed [facility] Pneumococcal 7 Conjugate, PCV7 (Prevnar7) 2004-01-26 00:00:00 Completed [facility] DTAP 2004-01-26 00:00:00 Completed [facility] HIB 4 Dose Schedule 2004-01-26 00:00:00 Completed [facility] Hep B, Adol or Pedi Dosage 2004-01-26 00:00:00 Completed [facility] Polio (IPV/OPV) 2004-01-26 00:00:00 Completed [facility] Pneumococcal 7 Conjugate, PCV7 (Prevnar7) 2004-01-26 00:00:00 Completed [facility] DTAP 2004-01-26 00:00:00 Completed [facility] HIB 4 Dose Schedule 2004-01-26 00:00:00 Completed [facility] Hep B, Adol or Pedi Dosage 2004-01-26 00:00:00 Completed [facility] Polio (IPV/OPV) 2004-01-26 00:00:00 Completed [facility] Pneumococcal 7 Conjugate, PCV7 (Prevnar7) 2004-01-26 00:00:00 Completed [facility] DTAP 2004-01-26 00:00:00 Completed [facility] HIB 4 Dose Schedule 2004-01-26 00:00:00 Completed [facility] Hep B, Adol or Pedi Dosage 2004-01-26 00:00:00 Completed [facility] Polio (IPV/OPV) 2004-01-26 00:00:00 Completed [facility] Pneumococcal 7 Conjugate, PCV7 (Prevnar7) 2004-01-26 00:00:00 Completed [facility] DTAP 2004-01-26 00:00:00 Completed [facility] HIB 4 Dose Schedule 2004-01-26 00:00:00 Completed [facility] Hep B, Adol or Pedi Dosage 2004-01-26 00:00:00 Completed [facility] Polio (IPV/OPV) 2004-01-26 00:00:00 Completed [facility] Pneumococcal 7 Conjugate, PCV7 (Prevnar7) 2004-01-26 00:00:00 Completed [facility] DTAP 2004-01-26 00:00:00 Completed [facility] HIB 4 Dose Schedule 2004-01-26 00:00:00 Completed [facility] Hep B, Adol or Pedi Dosage 2004-01-26 00:00:00 Completed [facility] Polio (IPV/OPV) 2004-01-26 00:00:00 Completed [facility] Pneumococcal 7 Conjugate, PCV7 (Prevnar7) 2004-01-26 00:00:00 Completed [facility] DTAP 2004-01-26 00:00:00 Completed [facility] HIB 4 Dose Schedule 2004-01-26 00:00:00 Completed [facility] Hep B, Adol or Pedi Dosage 2004-01-26 00:00:00 Completed [facility] Polio (IPV/OPV) 2004-01-26 00:00:00 Completed [facility] Pneumococcal 7 Conjugate, PCV7 (Prevnar7) 2004-01-26 00:00:00 Completed [facility] DTAP 2004-01-26 00:00:00 Completed [facility] HIB 4 Dose Schedule 2004-01-26 00:00:00 Completed [facility] Hep B, Adol or Pedi Dosage 2004-01-26 00:00:00 Completed [facility] Polio (IPV/OPV) 2004-01-26 00:00:00 Completed [facility] Pneumococcal 7 Conjugate, PCV7 (Prevnar7) 2004-01-26 00:00:00 Completed [facility] DTAP 2004-01-26 00:00:00 Completed [facility] HIB 4 Dose Schedule 2004-01-26 00:00:00 Completed [facility] Hep B, Adol or Pedi Dosage 2004-01-26 00:00:00 Completed [facility] Polio (IPV/OPV) 2004-01-26 00:00:00 Completed [facility] Pneumococcal 7 Conjugate, PCV7 (Prevnar7) 2004-01-26 00:00:00 Completed [facility] DTAP 2003 00:00:00 Completed [facility] HIB 4 Dose Schedule 2003 00:00:00 Completed [facility] Hep B, Adol or Pedi Dosage 2003 00:00:00 Completed [facility] Polio (IPV/OPV) 2003 00:00:00 Completed [facility] Pneumococcal 7 Conjugate, PCV7 (Prevnar7) 2003 00:00:00 Completed [facility] DTAP 2003 00:00:00 Completed [facility] HIB 4 Dose Schedule 2003 00:00:00 Completed [facility] Hep B, Adol or Pedi Dosage 2003 00:00:00 Completed [facility] Polio (IPV/OPV) 2003 00:00:00 Completed [facility] Pneumococcal 7 Conjugate, PCV7 (Prevnar7) 2003 00:00:00 Completed [facility] DTAP 2003 00:00:00 Completed [facility] HIB 4 Dose Schedule 2003 00:00:00 Completed [facility] Hep B, Adol or Pedi Dosage 2003 00:00:00 Completed [facility] Polio (IPV/OPV) 2003 00:00:00 Completed [facility] Pneumococcal 7 Conjugate, PCV7 (Prevnar7) 2003 00:00:00 Completed [facility] DTAP 2003 00:00:00 Completed [facility] HIB 4 Dose Schedule 2003 00:00:00 Completed [facility] Hep B, Adol or Pedi Dosage 2003 00:00:00 Completed [facility] Polio (IPV/OPV) 2003 00:00:00 Completed [facility] Pneumococcal 7 Conjugate, PCV7 (Prevnar7) 2003 00:00:00 Completed [facility] DTAP 2003 00:00:00 Completed [facility] HIB 4 Dose Schedule 2003 00:00:00 Completed [facility] Hep B, Adol or Pedi Dosage 2003 00:00:00 Completed [facility] Polio (IPV/OPV) 2003 00:00:00 Completed [facility] Pneumococcal 7 Conjugate, PCV7 (Prevnar7) 2003 00:00:00 Completed [facility] DTAP 2003 00:00:00 Completed [facility] HIB 4 Dose Schedule 2003 00:00:00 Completed [facility] Hep B, Adol or Pedi Dosage 2003 00:00:00 Completed [facility] Polio (IPV/OPV) 2003 00:00:00 Completed [facility] Pneumococcal 7 Conjugate, PCV7 (Prevnar7) 2003 00:00:00 Completed [facility] DTAP 2003 00:00:00 Completed [facility] HIB 4 Dose Schedule 2003 00:00:00 Completed [facility] Hep B, Adol or Pedi Dosage 2003 00:00:00 Completed [facility] Polio (IPV/OPV) 2003 00:00:00 Completed [facility] Pneumococcal 7 Conjugate, PCV7 (Prevnar7) 2003 00:00:00 Completed [facility] DTAP 2003 00:00:00 Completed [facility] HIB 4 Dose Schedule 2003 00:00:00 Completed [facility] Hep B, Adol or Pedi Dosage 2003 00:00:00 Completed [facility] Polio (IPV/OPV) 2003 00:00:00 Completed [facility] Pneumococcal 7 Conjugate, PCV7 (Prevnar7) 2003 00:00:00 Completed [facility] DTAP 2003 00:00:00 Completed [facility] HIB 4 Dose Schedule 2003 00:00:00 Completed [facility] Hep B, Adol or Pedi Dosage 2003 00:00:00 Completed [facility] Polio (IPV/OPV) 2003 00:00:00 Completed [facility] Pneumococcal 7 Conjugate, PCV7 (Prevnar7) 2003 00:00:00 Completed [facility] DTAP 2003 00:00:00 Completed [facility] HIB 4 Dose Schedule 2003 00:00:00 Completed [facility] Hep B, Adol or Pedi Dosage 2003 00:00:00 Completed [facility] Polio (IPV/OPV) 2003 00:00:00 Completed [facility] Pneumococcal 7 Conjugate, PCV7 (Prevnar7) 2003 00:00:00 Completed [facility] DTAP 2003 00:00:00 Completed [facility] HIB 4 Dose Schedule 2003 00:00:00 Completed [facility] Hep B, Adol or Pedi Dosage 2003 00:00:00 Completed [facility] Polio (IPV/OPV) 2003 00:00:00 Completed [facility] Pneumococcal 7 Conjugate, PCV7 (Prevnar7) 2003 00:00:00 Completed [facility] DTAP 2003 00:00:00 Completed [facility] DTAP 2003 00:00:00 Completed [facility] HIB 4 Dose Schedule 2003 00:00:00 Completed [facility] Hep B, Adol or Pedi Dosage 2003 00:00:00 Completed [facility] Polio (IPV/OPV) 2003 00:00:00 Completed [facility] Pneumococcal 7 Conjugate, PCV7 (Prevnar7) 2003 00:00:00 Completed [facility] HIB 4 Dose Schedule 2003 00:00:00 Completed [facility] DTAP 2003 00:00:00 Completed [facility] HIB 4 Dose Schedule 2003 00:00:00 Completed [facility] Hep B, Adol or Pedi Dosage 2003 00:00:00 Completed [facility] Polio (IPV/OPV) 2003 00:00:00 Completed [facility] Pneumococcal 7 Conjugate, PCV7 (Prevnar7) 2003 00:00:00 Completed [facility] Hep B, Adol or Pedi Dosage 2003 00:00:00 Completed [facility] DTAP 2003 00:00:00 Completed [facility] HIB 4 Dose Schedule 2003 00:00:00 Completed [facility] Hep B, Adol or Pedi Dosage 2003 00:00:00 Completed [facility] Polio (IPV/OPV) 2003 00:00:00 Completed [facility] Polio (IPV/OPV) 2003 00:00:00 Completed [facility] Pneumococcal 7 Conjugate, PCV7 (Prevnar7) 2003 00:00:00 Completed [facility] DTAP 2003 00:00:00 Completed [facility] HIB 4 Dose Schedule 2003 00:00:00 Completed [facility] Hep B, Adol or Pedi Dosage 2003 00:00:00 Completed [facility] Polio (IPV/OPV) 2003 00:00:00 Completed [facility] Pneumococcal 7 Conjugate, PCV7 (Prevnar7) 2003 00:00:00 Completed [facility] Pneumococcal 7 Conjugate, PCV7 (Prevnar7) 2003 00:00:00 Completed [facility] DTAP 2003 00:00:00 Completed [facility] HIB 4 Dose Schedule 2003 00:00:00 Completed [facility] Hep B, Adol or Pedi Dosage 2003 00:00:00 Completed [facility] Polio (IPV/OPV) 2003 00:00:00 Completed [facility] Pneumococcal 7 Conjugate, PCV7 (Prevnar7) 2003 00:00:00 Completed [facility] DTAP 2003 00:00:00 Completed [facility] HIB 4 Dose Schedule 2003 00:00:00 Completed [facility] Hep B, Adol or Pedi Dosage 2003 00:00:00 Completed [facility] Polio (IPV/OPV) 2003 00:00:00 Completed [facility] Pneumococcal 7 Conjugate, PCV7 (Prevnar7) 2003 00:00:00 Completed [facility] DTAP 2003 00:00:00 Completed [facility] HIB 4 Dose Schedule 2003 00:00:00 Completed [facility] Hep B, Adol or Pedi Dosage 2003 00:00:00 Completed [facility] Polio (IPV/OPV) 2003 00:00:00 Completed [facility] Pneumococcal 7 Conjugate, PCV7 (Prevnar7) 2003 00:00:00 Completed [facility] DTAP 2003 00:00:00 Completed [facility] HIB 4 Dose Schedule 2003 00:00:00 Completed [facility] Hep B, Adol or Pedi Dosage 2003 00:00:00 Completed [facility] Polio (IPV/OPV) 2003 00:00:00 Completed [facility] Pneumococcal 7 Conjugate, PCV7 (Prevnar7) 2003 00:00:00 Completed [facility] DTAP 2003 00:00:00 Completed [facility] HIB 4 Dose Schedule 2003 00:00:00 Completed [facility] Hep B, Adol or Pedi Dosage 2003 00:00:00 Completed [facility] Polio (IPV/OPV) 2003 00:00:00 Completed [facility] Pneumococcal 7 Conjugate, PCV7 (Prevnar7) 2003 00:00:00 Completed [facility] DTAP 2003 00:00:00 Completed [facility] HIB 4 Dose Schedule 2003 00:00:00 Completed [facility] Hep B, Adol or Pedi Dosage 2003 00:00:00 Completed [facility] Polio (IPV/OPV) 2003 00:00:00 Completed [facility] Pneumococcal 7 Conjugate, PCV7 (Prevnar7) 2003 00:00:00 Completed [facility] DTAP 2003 00:00:00 Completed [facility] HIB 4 Dose Schedule 2003 00:00:00 Completed [facility] Hep B, Adol or Pedi Dosage 2003 00:00:00 Completed [facility] Polio (IPV/OPV) 2003 00:00:00 Completed [facility] Pneumococcal 7 Conjugate, PCV7 (Prevnar7) 2003 00:00:00 Completed [facility] DTAP 2003 00:00:00 Completed [facility] HIB 4 Dose Schedule 2003 00:00:00 Completed [facility] Hep B, Adol or Pedi Dosage 2003 00:00:00 Completed [facility] Polio (IPV/OPV) 2003 00:00:00 Completed [facility] Pneumococcal 7 Conjugate, PCV7 (Prevnar7) 2003 00:00:00 Completed [facility] DTAP 2003 00:00:00 Completed [facility] HIB 4 Dose Schedule 2003 00:00:00 Completed [facility] Hep B, Adol or Pedi Dosage 2003 00:00:00 Completed [facility] Polio (IPV/OPV) 2003 00:00:00 Completed [facility] Pneumococcal 7 Conjugate, PCV7 (Prevnar7) 2003 00:00:00 Completed [facility] DTAP 2003 00:00:00 Completed [facility] HIB 4 Dose Schedule 2003 00:00:00 Completed [facility] Hep B, Adol or Pedi Dosage 2003 00:00:00 Completed [facility] Polio (IPV/OPV) 2003 00:00:00 Completed [facility] Pneumococcal 7 Conjugate, PCV7 (Prevnar7) 2003 00:00:00 Completed [facility] DTAP 2003 00:00:00 Completed [facility] HIB 4 Dose Schedule 2003 00:00:00 Completed [facility] Hep B, Adol or Pedi Dosage 2003 00:00:00 Completed [facility] Polio (IPV/OPV) 2003 00:00:00 Completed [facility] Pneumococcal 7 Conjugate, PCV7 (Prevnar7) 2003 00:00:00 Completed [facility] DTAP 2003 00:00:00 Completed [facility] HIB 4 Dose Schedule 2003 00:00:00 Completed [facility] Hep B, Adol or Pedi Dosage 2003 00:00:00 Completed [facility] Polio (IPV/OPV) 2003 00:00:00 Completed [facility] Pneumococcal 7 Conjugate, PCV7 (Prevnar7) 2003 00:00:00 Completed [facility] DTAP 2003 00:00:00 Completed [facility] HIB 4 Dose Schedule 2003 00:00:00 Completed [facility] Hep B, Adol or Pedi Dosage 2003 00:00:00 Completed [facility] Polio (IPV/OPV) 2003 00:00:00 Completed [facility] Pneumococcal 7 Conjugate, PCV7 (Prevnar7) 2003 00:00:00 Completed [facility] DTAP 2003 00:00:00 Completed [facility] HIB 4 Dose Schedule 2003 00:00:00 Completed [facility] Hep B, Adol or Pedi Dosage 2003 00:00:00 Completed [facility] Polio (IPV/OPV) 2003 00:00:00 Completed [facility] Pneumococcal 7 Conjugate, PCV7 (Prevnar7) 2003 00:00:00 Completed [facility] DTAP 2003 00:00:00 Completed [facility] HIB 4 Dose Schedule 2003 00:00:00 Completed [facility] Hep B, Adol or Pedi Dosage 2003 00:00:00 Completed [facility] Polio (IPV/OPV) 2003 00:00:00 Completed [facility] Pneumococcal 7 Conjugate, PCV7 (Prevnar7) 2003 00:00:00 Completed [facility] DTAP 2003 00:00:00 Completed [facility] HIB 4 Dose Schedule 2003 00:00:00 Completed [facility] Hep B, Adol or Pedi Dosage 2003 00:00:00 Completed [facility] Polio (IPV/OPV) 2003 00:00:00 Completed [facility] Pneumococcal 7 Conjugate, PCV7 (Prevnar7) 2003 00:00:00 Completed [facility] DTAP 2003 00:00:00 Completed [facility] HIB 4 Dose Schedule 2003 00:00:00 Completed [facility] Hep B, Adol or Pedi Dosage 2003 00:00:00 Completed [facility] Polio (IPV/OPV) 2003 00:00:00 Completed [facility] Pneumococcal 7 Conjugate, PCV7 (Prevnar7) 2003 00:00:00 Completed [facility] DTAP 2003 00:00:00 Completed [facility] HIB 4 Dose Schedule 2003 00:00:00 Completed [facility] Hep B, Adol or Pedi Dosage 2003 00:00:00 Completed [facility] Polio (IPV/OPV) 2003 00:00:00 Completed [facility] Pneumococcal 7 Conjugate, PCV7 (Prevnar7) 2003 00:00:00 Completed [facility] DTAP 2003 00:00:00 Completed [facility] HIB 4 Dose Schedule 2003 00:00:00 Completed [facility] Hep B, Adol or Pedi Dosage 2003 00:00:00 Completed [facility] Polio (IPV/OPV) 2003 00:00:00 Completed [facility] Pneumococcal 7 Conjugate, PCV7 (Prevnar7) 2003 00:00:00 Completed [facility] DTAP 2003 00:00:00 Completed [facility] HIB 4 Dose Schedule 2003 00:00:00 Completed [facility] Hep B, Adol or Pedi Dosage 2003 00:00:00 Completed [facility] Polio (IPV/OPV) 2003 00:00:00 Completed [facility] [facility] Conjugate, PCV7 (Prevnar7) 2003 00:00:00 Completed [facility] DTAP 2003 00:00:00 Completed [facility] HIB 4 Dose Schedule 2003 00:00:00 Completed [facility] Hep B, Adol or Pedi Dosage 2003 00:00:00 Completed [facility] Polio (IPV/OPV) 2003 00:00:00 Completed [facility] Pneumococcal 7 Conjugate, PCV7 (Prevnar7) 2003 00:00:00 Completed [facility] DTAP 2003 00:00:00 Completed [facility] HIB 4 Dose Schedule 2003 00:00:00 Completed [facility] Hep B, Adol or Pedi Dosage 2003 00:00:00 Completed [facility] Polio (IPV/OPV) 2003 00:00:00 Completed [facility] Pneumococcal 7 Conjugate, PCV7 (Prevnar7) 2003 00:00:00 Completed [facility] DTAP 2003 00:00:00 Completed [facility] HIB 4 Dose Schedule 2003 00:00:00 Completed [facility] Hep B, Adol or Pedi Dosage 2003 00:00:00 Completed [facility] Polio (IPV/OPV) 2003 00:00:00 Completed [facility] Pneumococcal 7 Conjugate, PCV7 (Prevnar7) 2003 00:00:00 Completed [facility] DTAP 2003 00:00:00 Completed [facility] HIB 4 Dose Schedule 2003 00:00:00 Completed [facility] Hep B, Adol or Pedi Dosage 2003 00:00:00 Completed [facility] Polio (IPV/OPV) 2003 00:00:00 Completed [facility] Pneumococcal 7 Conjugate, PCV7 (Prevnar7) 2003 00:00:00 Completed [facility] Hep B, Adol or Pedi Dosage 2003 00:00:00 Completed [facility] Hep B, Adol or Pedi Dosage 2003 00:00:00 Completed [facility] Hep B, Adol or Pedi Dosage 2003 00:00:00 Completed [facility] Hep B, Adol or Pedi Dosage 2003 00:00:00 Completed [facility] Hep B, Adol or Pedi Dosage 2003 00:00:00 Completed [facility] Hep B, Adol or Pedi Dosage 2003 00:00:00 Completed [facility] Hep B, Adol or Pedi Dosage 2003 00:00:00 Completed [facility] Hep B, Adol or Pedi Dosage 2003 00:00:00 Completed [facility] Hep B, Adol or Pedi Dosage 2003 00:00:00 Completed [facility] Hep B, Adol or Pedi Dosage 2003 00:00:00 Completed [facility] Hep B, Adol or Pedi Dosage 2003 00:00:00 Completed [facility] Hep B, Adol or Pedi Dosage 2003 00:00:00 Completed [facility] Hep B, Adol or Pedi Dosage 2003 00:00:00 Completed [facility] Hep B, Adol or Pedi Dosage 2003 00:00:00 Completed [facility] Hep B, Adol or Pedi Dosage 2003 00:00:00 Completed [facility] Hep B, Adol or Pedi Dosage 2003 00:00:00 Completed [facility] Hep B, Adol or Pedi Dosage 2003 00:00:00 Completed [facility] Hep B, Adol or Pedi Dosage 2003 00:00:00 Completed [facility] Hep B, Adol or Pedi Dosage 2003 00:00:00 Completed [facility] Hep B, Adol or Pedi Dosage 2003 00:00:00 Completed [facility] Hep B, Adol or Pedi Dosage 2003 00:00:00 Completed [facility] Hep B, Adol or Pedi Dosage 2003 00:00:00 Completed [facility] Hep B, Adol or Pedi Dosage 2003 00:00:00 Completed [facility] Hep B, Adol or Pedi Dosage 2003 00:00:00 Completed [facility] Hep B, Adol or Pedi Dosage 2003 00:00:00 Completed [facility] Hep B, Adol or Pedi Dosage 2003 00:00:00 Completed [facility] Hep B, Adol or Pedi Dosage 2003 00:00:00 Completed [facility] Hep B, Adol or Pedi Dosage 2003 00:00:00 Completed [facility] Hep B, Adol or Pedi Dosage 2003 00:00:00 Completed [facility] Hep B, Adol or Pedi Dosage 2003 00:00:00 Completed [facility] Hep B, Adol or Pedi Dosage 2003 00:00:00 Completed [facility] Hep B, Adol or Pedi Dosage 2003 00:00:00 Completed [facility] Hep B, Adol or Pedi Dosage 2003 00:00:00 Completed [facility] Hep B, Adol or Pedi Dosage 2003 00:00:00 Completed [facility] Hep B, Adol or Pedi Dosage 2003 00:00:00 Completed [facility] Hep B, Adol or Pedi Dosage 2003 00:00:00 Completed [facility] Hep B, Adol or Pedi Dosage 2003 00:00:00 Completed [facility] Hep B, Adol or Pedi Dosage 2003 00:00:00 Completed [facility] Hep B, Adol or Pedi Dosage 2003 00:00:00 Completed [facility] Hep B, Adol or Pedi Dosage 2003 00:00:00 Completed [facility] Influenza Virus Vaccine Quad .5 mL IM 6+ MO (FLUZONE/FLULAVAL/FL UARIX) Unknown Completed [facility] TDAP (ADACEL) VACCINE Unknown Completed [facility] DTAP Unknown Completed [facility] DTAP Unknown Completed [facility] DTAP Unknown Completed [facility] DTAP Unknown Completed [facility] DTAP Unknown Completed [facility] HIB 4 Dose Schedule Unknown Completed [facility] HIB 4 Dose Schedule Unknown Completed [facility] HIB 4 Dose Schedule Unknown Completed [facility] HIB 4 Dose Schedule Unknown Completed [facility] HEPATITIS A Unknown Completed [facility] Hep B, Adol or Pedi Dosage Unknown Completed [facility] Hep B, Adol or Pedi Dosage Unknown Completed [facility] Hep B, Adol or Pedi Dosage Unknown Completed [facility] Meningococcal Polysaccharide (groups A, C, Y and W-135) conjugate vaccine (MCV4P) Unknown Completed [facility] MMR Unknown Completed [facility] MMR Unknown Completed [facility] Polio (IPV/OPV) Unknown Completed [facility] Polio (IPV/OPV) Unknown Completed [facility] Polio (IPV/OPV) Unknown Completed [facility] Polio (IPV/OPV) Unknown Completed [facility] TDAP Unknown Completed [facility] Varicella (varivax)(chicken pox) Unknown Completed [facility] Varicella (varivax)(chicken pox) Unknown Completed [facility] Pneumococcal 7 Conjugate, PCV7 (Prevnar7) Unknown Completed [facility] Pneumococcal 7 Conjugate, PCV7 (Prevnar7) Unknown Completed [facility] Pneumococcal 7 Conjugate, PCV7 (Prevnar7) Unknown Completed [facility] Pneumococcal 7 Conjugate, PCV7 (Prevnar7) Unknown Completed [facility] TDAP Unknown Completed [facility] Influenza Virus Vaccine Quad .5 mL IM 6+ MO (FLUZONE/FLULAVAL/FL UARIX) Unknown Completed [facility] TDAP (ADACEL) VACCINE Unknown Completed [facility] DTAP Unknown Completed [facility] DTAP Unknown Completed [facility] DTAP Unknown Completed [facility] DTAP Unknown Completed [facility] DTAP Unknown Completed [facility] HIB 4 Dose Schedule Unknown Completed [facility] HIB 4 Dose Schedule Unknown Completed [facility] HIB 4 Dose Schedule Unknown Completed [facility] HIB 4 Dose Schedule Unknown Completed [facility] HEPATITIS A Unknown Completed [facility] Hep B, Adol or Pedi Dosage Unknown Completed [facility] Hep B, Adol or Pedi Dosage Unknown Completed [facility] Hep B, Adol or Pedi Dosage Unknown Completed [facility] Meningococcal Polysaccharide (groups A, C, Y and W-135) conjugate vaccine (MCV4P) Unknown Completed [facility] MMR Unknown Completed [facility] MMR Unknown Completed [facility] Polio (IPV/OPV) Unknown Completed [facility] Polio (IPV/OPV) Unknown Completed [facility] Polio (IPV/OPV) Unknown Completed [facility] Polio (IPV/OPV) Unknown Completed [facility] TDAP Unknown Completed [facility] Varicella (varivax)(chicken pox) Unknown Completed [facility] Varicella (varivax)(chicken pox) Unknown Completed [facility] Pneumococcal 7 Conjugate, PCV7 (Prevnar7) Unknown Completed [facility] Pneumococcal 7 Conjugate, PCV7 (Prevnar7) Unknown Completed [facility] Pneumococcal 7 Conjugate, PCV7 (Prevnar7) Unknown Completed [facility] Pneumococcal 7 Conjugate, PCV7 (Prevnar7) Unknown Completed [facility] TDAP Unknown Completed [facility] Influenza Virus Vaccine Quad .5 mL IM 6+ MO (FLUZONE/FLULAVAL/FL UARIX) Unknown Completed [facility] TDAP (ADACEL) VACCINE Unknown Completed [facility] DTAP Unknown Completed [facility] DTAP Unknown Completed [facility] DTAP Unknown Completed [facility] DTAP Unknown Completed [facility] DTAP Unknown Completed [facility] HIB 4 Dose Schedule Unknown Completed [facility] HIB 4 Dose Schedule Unknown Completed [facility] HIB 4 Dose Schedule Unknown Completed [facility] HIB 4 Dose Schedule Unknown Completed [facility] HEPATITIS A Unknown Completed [facility] Hep B, Adol or Pedi Dosage Unknown Completed [facility] Hep B, Adol or Pedi Dosage Unknown Completed [facility] Hep B, Adol or Pedi Dosage Unknown Completed [facility] Meningococcal Polysaccharide (groups A, C, Y and W-135) conjugate vaccine (MCV4P) Unknown Completed [facility] MMR Unknown Completed [facility] MMR Unknown Completed [facility] Polio (IPV/OPV) Unknown Completed [facility] Polio (IPV/OPV) Unknown Completed [facility] Polio (IPV/OPV) Unknown Completed [facility] Polio (IPV/OPV) Unknown Completed [facility] TDAP Unknown Completed [facility] Varicella (varivax)(chicken pox) Unknown Completed [facility] Varicella (varivax)(chicken pox) Unknown Completed [facility] Pneumococcal 7 Conjugate, PCV7 (Prevnar7) Unknown Completed [facility] Pneumococcal 7 Conjugate, PCV7 (Prevnar7) Unknown Completed [facility] Pneumococcal 7 Conjugate, PCV7 (Prevnar7) Unknown Completed [facility] Pneumococcal 7 Conjugate, PCV7 (Prevnar7) Unknown Completed [facility] TDAP Unknown Completed [facility] Influenza Virus Vaccine Quad .5 mL IM 6+ MO (FLUZONE/FLULAVAL/FL UARIX) Unknown Completed [facility] TDAP (ADACEL) VACCINE Unknown Completed [facility] DTAP Unknown Completed [facility] DTAP Unknown Completed [facility] DTAP Unknown Completed [facility] DTAP Unknown Completed [facility] DTAP Unknown Completed [facility] HIB 4 Dose Schedule Unknown Completed [facility] HIB 4 Dose Schedule Unknown Completed [facility] HIB 4 Dose Schedule Unknown Completed [facility] HIB 4 Dose Schedule Unknown Completed [facility] HEPATITIS A Unknown Completed [facility] Hep B, Adol or Pedi Dosage Unknown Completed [facility] Hep B, Adol or Pedi Dosage Unknown Completed [facility] Hep B, Adol or Pedi Dosage Unknown Completed [facility] Meningococcal Polysaccharide (groups A, C, Y and W-135) conjugate vaccine (MCV4P) Unknown Completed [facility] MMR Unknown Completed [facility] MMR Unknown Completed [facility] Polio (IPV/OPV) Unknown Completed [facility] Polio (IPV/OPV) Unknown Completed [facility] Polio (IPV/OPV) Unknown Completed [facility] Polio (IPV/OPV) Unknown Completed [facility] TDAP Unknown Completed [facility] Varicella (varivax)(chicken pox) Unknown Completed [facility] Varicella (varivax)(chicken pox) Unknown Completed [facility] Pneumococcal 7 Conjugate, PCV7 (Prevnar7) Unknown Completed [facility] Pneumococcal 7 Conjugate, PCV7 (Prevnar7) Unknown Completed [facility] Pneumococcal 7 Conjugate, PCV7 (Prevnar7) Unknown Completed [facility] Pneumococcal 7 Conjugate, PCV7 (Prevnar7) Unknown Completed [facility] TDAP Unknown Completed [facility] Influenza Virus Vaccine Quad .5 mL IM 6+ MO (FLUZONE/FLULAVAL/FL UARIX) Unknown Completed [facility] TDAP (ADACEL) VACCINE Unknown Completed [facility] DTAP Unknown Completed [facility] DTAP Unknown Completed [facility] DTAP Unknown Completed [facility] DTAP Unknown Completed [facility] DTAP Unknown Completed [facility] HIB 4 Dose Schedule Unknown Completed [facility] HIB 4 Dose Schedule Unknown Completed [facility] HIB 4 Dose Schedule Unknown Completed [facility] HIB 4 Dose Schedule Unknown Completed [facility] HEPATITIS A Unknown Completed [facility] Hep B, Adol or Pedi Dosage Unknown Completed [facility] Hep B, Adol or Pedi Dosage Unknown Completed [facility] Hep B, Adol or Pedi Dosage Unknown Completed [facility] Meningococcal Polysaccharide (groups A, C, Y and W-135) conjugate vaccine (MCV4P) Unknown Completed [facility] MMR Unknown Completed [facility] MMR Unknown Completed [facility] Polio (IPV/OPV) Unknown Completed [facility] Polio (IPV/OPV) Unknown Completed [facility] Polio (IPV/OPV) Unknown Completed [facility] Polio (IPV/OPV) Unknown Completed [facility] TDAP Unknown Completed [facility] Varicella (varivax)(chicken pox) Unknown Completed [facility] Varicella (varivax)(chicken pox) Unknown Completed [facility] Pneumococcal 7 Conjugate, PCV7 (Prevnar7) Unknown Completed [facility] Pneumococcal 7 Conjugate, PCV7 (Prevnar7) Unknown Completed [facility] Pneumococcal 7 Conjugate, PCV7 (Prevnar7) Unknown Completed [facility] Pneumococcal 7 Conjugate, PCV7 (Prevnar7) Unknown Completed [facility] TDAP Unknown Completed [facility] Influenza Virus Vaccine Quad .5 mL IM 6+ MO (FLUZONE/FLULAVAL/FL UARIX) Unknown Completed [facility] TDAP (ADACEL) VACCINE Unknown Completed [facility] DTAP Unknown Completed [facility] DTAP Unknown Completed [facility] DTAP Unknown Completed [facility] DTAP Unknown Completed [facility] DTAP Unknown Completed [facility] HIB 4 Dose Schedule Unknown Completed [facility] HIB 4 Dose Schedule Unknown Completed [facility] HIB 4 Dose Schedule Unknown Completed [facility] HIB 4 Dose Schedule Unknown Completed [facility] HEPATITIS A Unknown Completed [facility] Hep B, Adol or Pedi Dosage Unknown Completed [facility] Hep B, Adol or Pedi Dosage Unknown Completed [facility] Hep B, Adol or Pedi Dosage Unknown Completed [facility] Meningococcal Polysaccharide (groups A, C, Y and W-135) conjugate vaccine (MCV4P) Unknown Completed [facility] MMR Unknown Completed [facility] MMR Unknown Completed [facility] Polio (IPV/OPV) Unknown Completed [facility] Polio (IPV/OPV) Unknown Completed [facility] Polio (IPV/OPV) Unknown Completed [facility] Polio (IPV/OPV) Unknown Completed [facility] TDAP Unknown Completed [facility] Varicella (varivax)(chicken pox) Unknown Completed [facility] Varicella (varivax)(chicken pox) Unknown Completed [facility] Pneumococcal 7 Conjugate, PCV7 (Prevnar7) Unknown Completed [facility] Pneumococcal 7 Conjugate, PCV7 (Prevnar7) Unknown Completed [facility] Pneumococcal 7 Conjugate, PCV7 (Prevnar7) Unknown Completed [facility] Pneumococcal 7 Conjugate, PCV7 (Prevnar7) Unknown Completed [facility] TDAP Unknown Completed [facility] Influenza Virus Vaccine Quad .5 mL IM 6+ MO (FLUZONE/FLULAVAL/FL UARIX) Unknown Completed [facility] TDAP (ADACEL) VACCINE Unknown Completed [facility] DTAP Unknown Completed [facility] DTAP Unknown Completed [facility] DTAP Unknown Completed [facility] DTAP Unknown Completed [facility] DTAP Unknown Completed [facility] HIB 4 Dose Schedule Unknown Completed [facility] HIB 4 Dose Schedule Unknown Completed [facility] HIB 4 Dose Schedule Unknown Completed [facility] HIB 4 Dose Schedule Unknown Completed [facility] HEPATITIS A Unknown Completed [facility] Hep B, Adol or Pedi Dosage Unknown Completed [facility] Hep B, Adol or Pedi Dosage Unknown Completed [facility] Hep B, Adol or Pedi Dosage Unknown Completed [facility] Meningococcal Polysaccharide (groups A, C, Y and W-135) conjugate vaccine (MCV4P) Unknown Completed [facility] MMR Unknown Completed [facility] MMR Unknown Completed [facility] Polio (IPV/OPV) Unknown Completed [facility] Polio (IPV/OPV) Unknown Completed [facility] Polio (IPV/OPV) Unknown Completed [facility] Polio (IPV/OPV) Unknown Completed [facility] TDAP Unknown Completed [facility] Varicella (varivax)(chicken pox) Unknown Completed [facility] Varicella (varivax)(chicken pox) Unknown Completed [facility] Pneumococcal 7 Conjugate, PCV7 (Prevnar7) Unknown Completed [facility] Pneumococcal 7 Conjugate, PCV7 (Prevnar7) Unknown Completed [facility] Pneumococcal 7 Conjugate, PCV7 (Prevnar7) Unknown Completed [facility] Pneumococcal 7 Conjugate, PCV7 (Prevnar7) Unknown Completed [facility] TDAP Unknown Completed [facility] Influenza Virus Vaccine Quad .5 mL IM 6+ MO (FLUZONE/FLULAVAL/FL UARIX) Unknown Completed [facility] TDAP (ADACEL) VACCINE Unknown Completed [facility] DTAP Unknown Completed [facility] DTAP Unknown Completed [facility] DTAP Unknown Completed [facility] DTAP Unknown Completed [facility] DTAP Unknown Completed [facility] HIB 4 Dose Schedule Unknown Completed [facility] HIB 4 Dose Schedule Unknown Completed [facility] HIB 4 Dose Schedule Unknown Completed [facility] HIB 4 Dose Schedule Unknown Completed [facility] HEPATITIS A Unknown Completed [facility] Hep B, Adol or Pedi Dosage Unknown Completed [facility] Hep B, Adol or Pedi Dosage Unknown Completed [facility] Hep B, Adol or Pedi Dosage Unknown Completed [facility] Meningococcal Polysaccharide (groups A, C, Y and W-135) conjugate vaccine (MCV4P) Unknown Completed [facility] MMR Unknown Completed [facility] MMR Unknown Completed [facility] Polio (IPV/OPV) Unknown Completed [facility] Polio (IPV/OPV) Unknown Completed [facility] Polio (IPV/OPV) Unknown Completed [facility] Polio (IPV/OPV) Unknown Completed [facility] TDAP Unknown Completed [facility] Varicella (varivax)(chicken pox) Unknown Completed [facility] Varicella (varivax)(chicken pox) Unknown Completed [facility] Pneumococcal 7 Conjugate, PCV7 (Prevnar7) Unknown Completed [facility] Pneumococcal 7 Conjugate, PCV7 (Prevnar7) Unknown Completed [facility] Pneumococcal 7 Conjugate, PCV7 (Prevnar7) Unknown Completed [facility] Pneumococcal 7 Conjugate, PCV7 (Prevnar7) Unknown Completed [facility] TDAP Unknown Completed [facility] Influenza Virus Vaccine Quad .5 mL IM 6+ MO (FLUZONE/FLULAVAL/FL UARIX) Unknown Completed [facility] TDAP (ADACEL) VACCINE Unknown Completed [facility] DTAP Unknown Completed [facility] DTAP Unknown Completed [facility] DTAP Unknown Completed [facility] DTAP Unknown Completed [facility] DTAP Unknown Completed [facility] HIB 4 Dose Schedule Unknown Completed [facility] HIB 4 Dose Schedule Unknown Completed [facility] HIB 4 Dose Schedule Unknown Completed [facility] HIB 4 Dose Schedule Unknown Completed [facility] HEPATITIS A Unknown Completed [facility] Hep B, Adol or Pedi Dosage Unknown Completed [facility] Hep B, Adol or Pedi Dosage Unknown Completed [facility] Hep B, Adol or Pedi Dosage Unknown Completed [facility] Meningococcal Polysaccharide (groups A, C, Y and W-135) conjugate vaccine (MCV4P) Unknown Completed [facility] MMR Unknown Completed [facility] MMR Unknown Completed [facility] Polio (IPV/OPV) Unknown Completed [facility] Polio (IPV/OPV) Unknown Completed [facility] Polio (IPV/OPV) Unknown Completed [facility] Polio (IPV/OPV) Unknown Completed [facility] TDAP Unknown Completed [facility] Varicella (varivax)(chicken pox) Unknown Completed [facility] Varicella (varivax)(chicken pox) Unknown Completed [facility] Pneumococcal 7 Conjugate, PCV7 (Prevnar7) Unknown Completed [facility] Pneumococcal 7 Conjugate, PCV7 (Prevnar7) Unknown Completed [facility] Pneumococcal 7 Conjugate, PCV7 (Prevnar7) Unknown Completed [facility] Pneumococcal 7 Conjugate, PCV7 (Prevnar7) Unknown Completed [facility] TDAP Unknown Completed [facility] Influenza Virus Vaccine Quad .5 mL IM 6+ MO (FLUZONE/FLULAVAL/FL UARIX) Unknown Completed [facility] TDAP (ADACEL) VACCINE Unknown Completed [facility] DTAP Unknown Completed [facility] DTAP Unknown Completed [facility] DTAP Unknown Completed [facility] DTAP Unknown Completed [facility] DTAP Unknown Completed [facility] HIB 4 Dose Schedule Unknown Completed [facility] HIB 4 Dose Schedule Unknown Completed [facility] HIB 4 Dose Schedule Unknown Completed [facility] HIB 4 Dose Schedule Unknown Completed [facility] HEPATITIS A Unknown Completed [facility] Hep B, Adol or Pedi Dosage Unknown Completed [facility] Hep B, Adol or Pedi Dosage Unknown Completed [facility] Hep B, Adol or Pedi Dosage Unknown Completed [facility] Meningococcal Polysaccharide (groups A, C, Y and W-135) conjugate vaccine (MCV4P) Unknown Completed [facility] MMR Unknown Completed [facility] MMR Unknown Completed [facility] Polio (IPV/OPV) Unknown Completed [facility] Polio (IPV/OPV) Unknown Completed [facility] Polio (IPV/OPV) Unknown Completed [facility] Polio (IPV/OPV) Unknown Completed [facility] TDAP Unknown Completed [facility] Varicella (varivax)(chicken pox) Unknown Completed [facility] Varicella (varivax)(chicken pox) Unknown Completed [facility] Pneumococcal 7 Conjugate, PCV7 (Prevnar7) Unknown Completed [facility] Pneumococcal 7 Conjugate, PCV7 (Prevnar7) Unknown Completed [facility] Pneumococcal 7 Conjugate, PCV7 (Prevnar7) Unknown Completed [facility] Pneumococcal 7 Conjugate, PCV7 (Prevnar7) Unknown Completed [facility] TDAP Unknown Completed [facility] Vital Signs Vital Name Observation Time Observation Value Comments S ource Systolic blood pressure 2023-04-21 22:09:00 116 mm[Hg] [facility] Diastolic blood pressure 2023-04-21 22:09:00 74 mm[Hg] [facility] Heart rate 2023-04-21 22:09:00 91 /min [facility] Body height 2023-04-21 22:09:00 170.2 cm Univ [facility] Body weight 2023-04-21 22:09:00 82.555 kg Univ [facility] BMI 2023-04-21 22:09:00 28.51 kg/m2 Univ [facility] Systolic blood pressure 2023-03-24 20:32:00 128 mm[Hg] [facility] Diastolic blood pressure 2023-03-24 20:32:00 76 mm[Hg] [facility] Heart rate 2023-03-24 20:32:00 85 /min [facility] Body temperature 2023-03-24 20:32:00 36.78 Erika [facility] Body height 2023-03-24 20:32:00 170.2 cm Univ [facility] Body weight 2023-03-24 20:32:00 77.384 kg Univ [facility] BMI 2023-03-24 20:32:00 26.72 kg/m2 [facility] Systolic blood pressure 2022-12-16 21:06:00 124 mm[Hg] [place] [facility] Diastolic blood pressure 2022-12-16 21:06:00 66 mm[Hg] [place] [facility] Heart rate 2022-12-16 21:06:00 60 /min Unive [facility] Respiratory rate 2022-12-16 21:06:00 18 /min [facility] Body height 2022-12-16 21:06:00 170.2 cm Univ [facility] Body weight 2022-12-16 21:06:00 77.565 kg Univ [facility] BMI 2022-12-16 21:06:00 26.78 kg/m2 [facility] Systolic blood pressure 2022-10-20 21:23:00 117 mm[Hg] [facility] [place] Diastolic blood pressure 2022-10-20 21:23:00 73 mm[Hg] [facility] Heart rate 2022-10-20 21:23:00 73 /min [facility] Body temperature 2022-10-20 21:23:00 36.78 Erika [facility] Respiratory rate 2022-10-20 21:23:00 18 /min [facility] Body height 2022-10-20 21:23:00 170.2 cm [facility] Body weight 2022-10-20 21:23:00 77.474 kg [facility] BMI 2022-10-20 21:23:00 26.75 kg/m2 [facility] Oxygen saturation in Arterial blood by Pulse oximetry 2022-10-20 21:23:00 98 /min [facility] Systolic blood pressure 2022-09-25 16:38:00 112 mm[Hg] [facility] Diastolic blood pressure 2022-09-25 16:38:00 73 mm[Hg] [facility] Heart rate 2022-09-25 16:38:00 71 /min [facility] Respiratory rate 2022-09-25 16:38:00 16 /min [facility] Oxygen saturation in Arterial blood by Pulse oximetry 2022-09-25 16:38:00 100 /min [facility] Body temperature 2022-09-25 13:30:00 36.72 Erika [facility] BMI 2022-09-24 12:30:00 30.70 kg/m2 [facility] Body height 2022-09-24 12:30:00 170.2 cm [facility] Body weight 2022-09-24 12:30:00 88.905 kg [facility] Systolic blood pressure 2022-09-22 21:17:00 115 mm[Hg] [facility] Diastolic blood pressure 2022-09-22 21:17:00 69 mm[Hg] [facility] Heart rate 2022-09-22 21:17:00 82 /min [facility] Body temperature 2022-09-22 21:17:00 36.28 Erika [facility] Respiratory rate 2022-09-22 21:17:00 18 /min [facility] Body height 2022-09-22 21:17:00 170.2 cm [facility] Body weight 2022-09-22 21:17:00 88.905 kg Univ [facility] BMI 2022-09-22 21:17:00 30.70 kg/m2 Univ [facility] Systolic blood pressure 2022-09-16 20:45:00 119 mm[Hg] [place] [facility] Diastolic blood pressure 2022-09-16 20:45:00 63 mm[Hg] [facility] Heart rate 2022-09-16 20:45:00 93 /min Unive [facility] Body temperature 2022-09-16 20:45:00 36.83 Erika [facility] Respiratory rate 2022-09-16 20:45:00 18 /min [facility] Body height 2022-09-16 20:45:00 170.2 cm Univ [facility] Body weight 2022-09-16 20:45:00 89.812 kg [facility] BMI 2022-09-16 20:45:00 31.01 kg/m2 Univ [facility] Systolic blood pressure 2022-09-09 20:56:00 106 mm[Hg] [facility] Diastolic blood pressure 2022-09-09 20:56:00 67 mm[Hg] [facility] Heart rate 2022-09-09 20:56:00 96 /min Unive [facility] Body temperature 2022-09-09 20:56:00 36.72 Erika [facility] Body height 2022-09-09 20:56:00 170.2 cm Univ [facility] Body weight 2022-09-09 20:56:00 86.546 kg Univ [facility] BMI 2022-09-09 20:56:00 29.88 kg/m2 Univ [facility] Systolic blood pressure 2022-08-25 21:12:00 118 mm[Hg] [facility] Diastolic blood pressure 2022-08-25 21:12:00 83 mm[Hg] [facility] Heart rate 2022-08-25 21:12:00 78 /min Unive [facility] Body temperature 2022-08-25 21:12:00 36.83 Erika [facility] Respiratory rate 2022-08-25 21:12:00 18 /min [facility] Body height 2022-08-25 21:12:00 170.2 [facility] weight 2022-08-25 21:12:00 84.46 kg Univ [facility] BMI 2022-08-25 21:12:00 29.16 kg/m2 [facility] Oxygen saturation in Arterial blood by Pulse oximetry 2022-08-25 21:12:00 99 /min [facility] Systolic blood pressure 2022-08-11 21:01:00 100 mm[Hg] [facility] Diastolic blood pressure 2022-08-11 21:01:00 66 mm[Hg] [facility] Heart rate 2022-08-11 21:01:00 87 /min [facility] Body temperature 2022-08-11 21:01:00 37 Erika [facility] Respiratory rate 2022-08-11 21:01:00 18 /min [facility] Body height 2022-08-11 21:01:00 170.2 cm Univ [facility] Body weight 2022-08-11 21:01:00 83.099 kg [facility] BMI 2022-08-11 21:01:00 28.69 kg/m2 [facility] Diastolic blood pressure 2022-07-28 21:05:00 72 mm[Hg] [facility] Heart rate 2022-07-28 21:05:00 78 /min Unive [facility] Body temperature 2022-07-28 21:05:00 36.78 Erika [facility] Body height 2022-07-28 21:05:00 170.2 cm Univ [facility] Body weight 2022-07-28 21:05:00 81.92 kg Univ [facility] BMI 2022-07-28 21:05:00 28.29 kg/m2 Univ [facility] Systolic blood pressure 2022-07-28 21:05:00 106 mm[Hg] [facility] Systolic blood pressure 2022-07-09 20:59:00 116 mm[Hg] [facility] Diastolic blood pressure 2022-07-09 20:59:00 76 mm[Hg] [facility] Heart rate 2022-07-09 20:59:00 93 /min [facility] Body temperature 2022-07-09 20:59:00 37.06 Erika [facility] Respiratory rate 2022-07-09 20:59:00 17 /min [facility] Body height 2022-07-09 20:59:00 170.2 cm [facility] Body weight 2022-07-09 20:59:00 78.2 kg [facility] BMI 2022-07-09 20:59:00 27.00 kg/m2 [facility] Body mass index (BMI) [Percentile] Per age and sex 2022-07-09 20:59:00 88.10 % [facility] Systolic blood pressure 2022-06-11 21:57:00 131 mm[Hg] [facility] Diastolic blood pressure 2022-06-11 21:57:00 61 mm[Hg] [facility] Heart rate 2022-06-11 21:57:00 92 /min [facility] Body temperature 2022-06-11 21:57:00 36.72 Erika [facility] Respiratory rate 2022-06-11 21:57:00 16 /min [facility] Body height 2022-06-11 21:57:00 170.2 cm [facility] Body weight 2022-06-11 21:57:00 76.204 kg [facility] BMI 2022-06-11 21:57:00 26.31 kg/m2 [facility] Body mass index (BMI) [Percentile] Per age and sex 2022-06-11 21:57:00 85.99 % [facility] Systolic blood pressure 2022-05-08 22:44:00 113 mm[Hg] [facility] Diastolic blood pressure 2022-05-08 22:44:00 70 mm[Hg] [facility] Heart rate 2022-05-08 22:44:00 74 /min [facility] Body temperature 2022-05-08 22:44:00 36.89 Erkia [facility] Body height 2022-05-08 22:44:00 170.2 cm [facility] Body weight 2022-05-08 22:44:00 71.124 kg [facility] BMI 2022-05-08 22:44:00 24.56 kg/m2 [facility] Body mass index (BMI) [Percentile] Per age and sex 2022-05-08 22:44:00 78.00 % [facility] Systolic blood pressure 2022-04-10 20:23:00 100 mm[Hg] [facility] Diastolic blood pressure 2022-04-10 20:23:00 66 mm[Hg] [facility] Heart rate 2022-04-10 20:23:00 90 /min [facility] Body temperature 2022-04-10 20:23:00 36.72 Erika [facility] Respiratory rate 2022-04-10 20:23:00 18 /min [facility] Body height 2022-04-10 20:23:00 170.2 cm [facility] Body weight 2022-04-10 20:23:00 67.586 kg [facility] BMI 2022-04-10 20:23:00 23.34 kg/m2 [facility] Body mass index (BMI) [Percentile] Per age and sex 2022-04-10 20:23:00 69.53 % [facility] Procedures Procedure Date / Time Performed Performing Clinician Source SECOND AND THIRD TRIMESTER ULTRASOUND 2023-04-29 20:56:00 Ana Anne [facility] ASSIGNMENT OF BENEFITS 2023-04-21 22:03:21 Docto r Unassigned, [place] [facility] POCT URINALYSIS W/O SPECIFIC GRAVITY 2023-04-21 00:00:00 Ana Anne [facility] SECOND AND THIRD TRIMESTER ULTRASOUND 2023-03-26 19:17:00 Ana Anne [facility] >14 WEEKS US LIMITED 2023-03-24 22:43:31 Ana Anne [facility] COMPLAINTS COORDINATOR CLINIC ULTRASOUND 2023-03-24 06:01:00 Doc tor Unassigned, [place] [facility] POCT URINALYSIS W/O SPECIFIC GRAVITY 2023-03-24 00:00:00 Ana Anne [facility] POCT TEST 2022-12-16 00:00:00 Ana Anne [facility] CONSENT FOR CONTRACEPTION 2022-10-20 05:01:00 Doctor Unassigned, [place] [facility] POCT TEST 2022-10-20 00:00:00 Ana Anne [facility] CBC WITH DIFF 2022-09-25 09:46:00 Ana Anne [facility] HB ABO GROUPING 2022-09-24 13:27:00 Adum, Snow Hel[facility] RHO (D) IMMUNE GLOBULIN 2022-09-24 13:27:00 AnneAna Surya [facility] ADC OR PETEY ONLY - RPR 2022-09-24 13:27:00 Adum, Snow Michele [facility] HEPATITIS B SURFACE ANTIGEN 2022-09-24 13:26:00 Adum, Snow Michele [facility] CBC WITH DIFF 2022-09-24 13:25:00 Adum, Snow Michele [facility] HIV 1/2 AG-AB WITH REFLEX 2022-09-24 13:24:00 Adum, Snow Michele [facility] HOSPITAL ADMISSION 2022-09-24 05:01:00 Doctor Un assigned, [place] [facility] POCT URINALYSIS W/O SPECIFIC GRAVITY 2022-09-22 00:00:00 Carmelita Kemp [facility] CONSENT/REFUSAL FOR DIAGNOSIS AND TREATMENT 2022-09-16 21:52:06 Doctor Unassigned, [place] [facility] ASSIGNMENT OF BENEFITS 2022-09-16 21:50:18 Docto r Unassigned, [place] [facility] POCT URINALYSIS W/O SPECIFIC GRAVITY 2022-09-16 00:00:00 Adum, Snow Michele [facility] >14 WEEKS US LIMITED 2022-09-09 22:26:20 Adum, Snow Michele [facility] DSU PRE-OP 2022-09-09 05:01:00 Doctor Unass igned, [place] [facility] POCT URINALYSIS W/O SPECIFIC GRAVITY 2022-09-09 00:00:00 Adum, Snow Michele [facility] POCT URINALYSIS W/O SPECIFIC GRAVITY 2022-08-25 00:00:00 Ana Anne [facility] POCT URINALYSIS W/O SPECIFIC GRAVITY 2022-08-11 21:01:00 Ana Anne [facility] POCT URINALYSIS W/O SPECIFIC GRAVITY 2022-07-28 21:08:00 Ana Anne [facility] TDAP VACCINE, >11 YRS, IM 2022-07-09 21:04:43 Ana Anne [facility] POCT URINALYSIS W/O SPECIFIC GRAVITY 2022-07-09 21:00:00 Ana Anne [facility] POCT URINALYSIS W/O SPECIFIC GRAVITY 2022-06-11 22:00:00 Carmelita Kemp [facility] POCT URINALYSIS W/O SPECIFIC GRAVITY 2022-05-08 00:00:00 Ana Anne [facility] EXTERNAL PROVIDER RECORDS 2022-05-07 06:01:00 Doctor Unassigned, [place] [facility] URINE DRUG (IMMUNOASSAY) - COMPREHENSIVE DRUG SCREEN 2022-04-10 21:07:00 Ana Anne [facility] GC & CHLAMYDIA AMPLIFIED ASSAY 2022-04-10 21:07:00 Ana Anne [facility] GALV ONLY - VAGINAL PATHOGENS BY NUCLEIC ACID TESTING 2022-04-10 21:07:00 Omid [facility] TRICHOMONAS AMPLIFIED ASSAY 2022-04-10 21:07:00 Ana Anne [facility] ASSIGNMENT OF BENEFITS 2022-04-10 20:02:36 Docto r Unassigned, [place] [facility] POCT TEST 2022-04-10 00:00:00 Ana Anne [facility] POCT URINALYSIS W/O SPECIFIC GRAVITY 2022-04-10 00:00:00 Ana Anne [facility] Encounters Start Date/Time End Date/Time Encounter Type Admission Type Attending Clinicians Care Facility Care Department Encounter ID Source 2023-04-29 14:00:00 2023-04-29 16:40:13 Outpatient P LEVI CAMARA [facility] [id number] [facility] 2023-04-29 14:00:00 2023-04-29 16:40:13 [employer] Operator Visit Ultrasound, [facility] Levi Camara [facility] COMPLAINTS COORDINATOR [facility] 1..840.114 350.1.13.10 4.2.7.2.686 [id number] [facility] 2023-04-21 16:00:00 2023-04-21 16:15:00 Routine Visit Ana Anne [facility] 1..840.114 350.1.13.10 4.2.7.2.686 [id number] 134 [id number] [facility] 2023-04-21 16:00:00 2023-04-21 16:00:00 Outpatient R ANA ANNE [facility] [id number] [facility] 2023-04-21 00:00:00 2023-04-21 00:00:00 Orders Only Doctor Unassigned, [place] [facility] 1.840.114 350.1.13.10 4.2.7.2.686 [id number] [facility] 2023-04-15 00:00:00 2023-04-15 00:00:00 Telephone Ana Anne [facility] 1.2.840.114 350.1.13.10 4.2.7.2.686 [id number] [facility] 2023-04-08 00:00:00 2023-04-08 00:00:[address] [facility] BUILDING 1.2.840.114 350.1.13.10 4.2.7.2.686 [id number] [facility] 2023-03-31 10:00:00 2023-03-31 10:15:00 [employer] Treatment Operator Visit 2, [facility] Ana Anne [facility] NAL BUILDING 1.2.840.114 350.1.13.10 4.2.7.2.686 [id number] [facility] 2023-03-31 10:00:00 2023-03-31 10:00:00 Outpatient R ANA ANNE [facility] [id number] [facility] 2023-03-31 00:00:00 2023-03-31 00:00:[address] Ana Anne [facility] BUILDING 1..840.114 350.1.13.10 4.2.7.2.686 [id number] [facility] 2023-03-26 13:00:00 2023-03-26 15:06:23 Outpatient P LEVI CAMARA [facility] [id number] [facility] 2023-03-26 13:00:00 2023-03-26 15:06:23 [employer] Treatment Operator Visit 1, [facility] Room Levi Camara [facility] COMPLAINTS COORDINATOR [facility] 1.2.840.114 350.1.13.10 4.2.7.2.686 [id number] [facility] 2023-03-24 14:30:00 2023-03-24 14:58:53 Outpatient R ANA ANNE [facility] [id number] [facility] 2023-03-24 14:30:00 2023-03-24 14:58:53 Initial Visit Ana Anne [facility] BUILDING 1.2.840.114 350.1.13.10 4.2.7.2.686 [id number] [facility] 2023-03-24 00:00:00 2023-03-24 00:00:00 Orders Only Doctor Unassigned, [place] [facility] 1.2.840.114 350.1.13.10 4.2.7.2.686 [id number] [facility] 2023-01-12 14:30:00 2023-01-12 14:30:00 Outpatient R OMID ANA [facility] [id number] [facility] 2023-01-08 14:30:00 2023-01-08 14:30:00 Outpatient R OMID [facility] [id number] [facility] 2023-01-01 14:30:00 2023-01-01 14:30:00 Outpatient R ANA ANNE [facility] [id number] [facility] 2022-12-16 15:30:00 2022-12-16 16:06:16 Outpatient R OMID [facility] [id number] [facility] 2022-12-16 15:30:00 2022-12-16 16:06:16 Nurse Visit Nurse, [facility] Omid Ana [facility] 1..840.114 350.1.13.10 4.2.7.2.686 [id number] 134 [id number] [facility] 2022-11-25 00:00:00 2022-11-25 00:00:00 Telephone Omid Ana Surya [facility] 1.2.840.114 350.1.13.10 4.2.7.2.686 [id number] [facility] 2022-10-20 16:00:00 2022-10-20 16:40:31 Outpatient R ANA ANNE [facility] [id number] [facility] 2022-10-20 16:00:00 2022-10-20 16:40:31 Routine Visit Ana Anne [facility] 1..114 350.1.13.10 4.2.7.2.686 [id number] [facility] 2022-10-20 00:00:00 2022-10-20 00:00:00 Orders Only Doctor Unassigned, [place] [facility] 1..114 350.1.13.10 4.2.7.2.686 [id number] [facility] 2022-10-17 15:30:00 2022-10-17 15:30:00 Outpatient R SNOW ESCOBAR [facility] [id number] [facility] 2022-10-16 15:30:00 2022-10-16 15:30:00 Outpatient R CATHLEEN ANNEEN [facility] [id number] [facility] 2022-09-24 03:59:00 2022-09-25 14:25:00 Inpatient P OMID [facility] ANGELIA [id number] [facility] 2022-09-24 03:59:00 2022-09-25 14:25:00 Hospital Encounter Ana Anne [facility] 1.84.114 350.1.13.10 4.2.7.2.686 [id number] [facility] 2022-09-24 00:00:00 2022-09-24 00:00:00 Orders Only Doctor Unassigned, [place] [facility] 1.84.114 350.1.13.10 4.2.7.2.686 [id number] [facility] 2022-09-22 16:15:00 2022-09-22 16:27:20 Outpatient R CARMELITA KEMP [facility] [id number] [facility] 2022-09-22 16:15:00 2022-09-22 16:27:20 Routine Visit Carmelita Kemp [facility] 1.2.840.114 350.1.13.10 4.2.7.2.686 [id number] [facility] 2022-09-16 15:30:00 2022-09-16 16:39:51 Outpatient R ADUM, [facility] [id number] [facility] 2022-09-16 15:30:00 2022-09-16 16:39:51 Routine Visit Adum, Snow Michele [facility] 1.2.840.114 350.1.13.10 4.2.7.2.686 [id number] 134 [id number] [facility] 2022-09-10 00:00:00 2022-09-10 00:00:00 Refill Ana Anne [facility] 1.2.840.114 350.1.13.10 4.2.7.2.686 [id number] [facility] 2022-09-09 15:30:00 2022-09-09 16:35:53 Outpatient R ADUM, [facility] [id number] [facility] 2022-09-09 15:30:00 2022-09-09 16:35:53 Routine Visit Adum, Snow [facility] 1.2.840.114 350.1.13.10 4.2.7.2.686 [id number] [facility] 2022-09-09 00:00:00 2022-09-09 00:00:00 Orders Only Doctor Unassigned, [place] [facility] 1.2.840.114 350.1.13.10 4.2.7.2.686 [id number] [facility] 2022-09-05 15:15:00 2022-09-05 15:15:00 Outpatient R CARMELITA KEMP [facility] [id number] [facility] 2022-08-25 15:45:00 2022-08-25 16:20:08 Outpatient R ANA ANNE [facility] [id number] [facility] 2022-08-25 15:45:00 2022-08-25 16:20:08 Routine [facility] 1.2.840.114 350.1.13.10 4.2.7.2.686 [id number] [facility] 2022-08-15 13:45:00 2022-08-15 14:00:00 [employer] Operator Visit Pob, [facility] 1.2.840.114 350.1.13.10 4.2.7.2.686 [id number] [facility] 2022-08-15 13:45:00 2022-08-15 13:45:00 Outpatient R ANA ANNE [facility] [id number] [facility] 2022-08-12 00:00:00 2022-08-12 00:00:00 Telephone Ana Anne [facility] 1.2.840.114 350.1.13.10 4.2.7.2.686 [id number] 134 [id number] [facility] 2022-08-11 15:45:00 2022-08-11 16:18:13 Outpatient R ANA ANNE [facility] [id number] [facility] 2022-08-11 15:45:00 2022-08-11 16:18:13 Routine Visit Ana Anne [facility] 1.2.840.114 350.1.13.10 4.2.7.2.686 [id number] [facility] 2022-07-30 13:30:00 2022-07-30 14:15:00 Oil And Gas Well Treatment Operator Visit Ultrasound, Jason Miller [facility] COMPLAINTS COORDINATOR [facility] 1..114 350.1.13.10 4.2.7.2.686 [id number] [facility] 2022-07-30 13:30:00 2022-07-30 13:30:00 Outpatient P JASON LOPEZ [facility] [id number] [facility] 2022-07-28 15:30:00 2022-07-28 16:17:23 Outpatient R ANA ANNE [facility] [id number] [facility] 2022-07-28 15:30:00 2022-07-28 16:17:23 Routine Visit Ana Anne [facility] 1..114 350.1.13.10 4.2.7.2.686 [id number] 134 [id number] [facility] 2022-07-11 14:45:00 2022-07-11 14:45:00 Outpatient P [facility] [id number] [facility] 2022-07-09 15:45:00 2022-07-09 16:23:28 Outpatient R OMID ANA [facility] [id number] [facility] 2022-07-09 15:45:00 2022-07-09 16:23:28 Routine Visit Ana Anne [facility] 1..114 350.1.13.10 4.2.7.2.686 [id number] 134 [id number] [facility] 2022-07-02 14:30:00 2022-07-02 14:45:00 Oil And Gas Well Treatment Operator Visit 2, Adc Lab Ana Anne [facility] 1..114 350.1.13.10 4.2.7.2.686 [id number] [facility] 2022-07-02 14:30:00 2022-07-02 14:30:00 Outpatient R ANA ANNE [facility] [id number] [facility] 2022-06-11 16:00:00 2022-06-11 16:36:49 [facility] [id number] [facility] 2022-06-11 16:00:00 2022-06-11 16:36:49 Routine Visit Torrespasquale Carmelita [facility] 1.2.840.114 350.1.13.10 4.2.7.2.686 [id number] 134 [id number] [facility] 2022-06-09 09:00:00 2022-06-09 10:25:57 Oil And Gas Well Treatment Operator Visit Ultrasound, Levi Benton [facility] COMPLAINTS COORDINATOR [facility] 1.2.840.114 350.1.13.10 4.2.7.2.686 [id number] [facility] 2022-06-09 09:00:00 2022-06-09 09:00:00 Outpatient P LEVI CAMARA [facility] [id number] [facility] 2022-05-19 00:00:00 2022-05-19 00:00:00 Refill Ana Anne [facility] 1.2.840.114 350.1.13.10 4.2.7.2.686 [id number] 134 [id number] [facility] 2022-05-15 14:30:00 2022-05-15 14:30:00 Outpatient P [facility] [id number] [facility] 2022-05-12 00:00:00 2022-05-12 00:00:[address] [facility] BUILDING 1.2.840.114 350.1.13.10 4.2.7.2.686 [id number] [facility] 2022-05-08 16:15:00 2022-05-08 17:14:40 [facility] [id number] [facility] 2022-05-08 16:15:00 2022-05-08 17:14:40 [facility] 1.2.840.114 350.1.13.10 4.2.7.2.686 [id number] 134 [id number] [facility] 2022-05-07 00:00:00 2022-05-07 00:00:00 Orders Only Doctor Unassigned, [place] [facility] 1.2.840.114 350.1.13.10 4.2.7.2.686 [id number] [facility] 2022-05-03 10:45:00 2022-05-03 11:00:00 Oil And Gas Well Treatment Operator Visit Pob, Adc Lab Main Ana Anne [facility] BUILDING 1.2.840.114 350.1.13.10 4.2.7.2.686 [id number] [facility] 2022-05-03 10:45:00 2022-05-03 10:45:00 Outpatient R ANA ANNE [facility] [id number] [facility] 2022-05-02 00:00:00 2022-05-02 00:00:[address] [facility] BUILDING 1.2.840.114 350.1.13.10 4.2.7.2.686 [id number] 134 [id number] [facility] 2022-04-17 00:00:00 2022-04-17 00:00:00 Telephone Ana Anne [facility] 1.2.840.114 350.1.13.10 4.2.7.2.686 [id number] 134 [id number] [facility] 2022-04-14 00:00:00 2022-04-14 00:00:00 Case Management Carmelita Kemp [facility] BUILDING 1.2.840.114 350.1.13.10 4.2.7.2.686 [id number] 134 [id number] [facility] 2022-04-14 00:00:00 2022-04-14 00:00:00 Telephone Carmelita Kemp [facility] BUILDING 1.2.840.114 350.1.13.10 4.2.7.2.686 [id number] 134 [id number] [facility] 2022-04-11 10:30:00 2022-04-11 11:05:22 Oil And Gas Well Treatment Operator Visit 2, Adc Lab Ana Anne [facility] 1.2.840.114 350.1.13.10 4.2.7.2.686 [id number] [facility] 2022-04-11 10:30:00 2022-04-11 10:30:00 Outpatient R ANA ANNE [facility] [id number] [facility] 2022-04-11 00:00:00 2022-04-11 00:00:00 Telephone Ana Anne [facility] 1.2.840.114 350.1.13.10 4.2.7.2.686 [id number] 134 [id number] [facility] 2022-04-10 14:00:00 2022-04-10 15:18:57 Outpatient R ANA ANNE [facility] [id number] [facility] 2022-04-10 14:00:00 2022-04-10 15:18:57 Initial Visit Ana Anne [facility] [address] [facility] 1..840.114 350.1.13.10 4.2.7.2.686 [id number] 134 [id number] [facility] 2022-04-10 00:00:00 2022-04-10 00:00:00 Orders Only Doctor Unassigned, [place] [facility] 1..840.114 350.1.13.10 4.2.7.2.686 [id number] [facility] 2021-03-27 09:30:00 2021-03-27 09:30:00 Outpatient R CARMELITA KEMP [facility] [id number] [facility] 2020-12-31 10:00:00 2020-12-31 10:00:00 Outpatient R [facility] [id number] [facility] 2020-10-05 10:00:00 2020-10-05 10:00:00 Outpatient R [facility] [id number] [facility] 2020-10-05 10:00:00 2020-10-05 10:00:00 Outpatient R [facility] [id number] [facility] 2020-10-03 10:30:00 2020-10-03 10:30:00 Outpatient R [facility] [id number] [facility] 2020-10-03 10:30:00 2020-10-03 10:30:00 Outpatient R [facility] [id number] [facility] 2020-07-11 10:30:00 2020-07-11 10:30:00 Outpatient R ANA ANNE [facility] [id number] [facility] 2020-04-18 10:30:00 2020-04-18 10:30:00 Outpatient R [facility] [id number] [facility] 2020-03-27 10:00:00 2020-03-27 10:00:00 Outpatient R CARMELITA KEMP [facility] [id number] [facility] 2020-02-23 14:00:00 2020-02-23 14:00:00 Outpatient R CARMELITA KEMP [facility] [id number] [facility] 2020-02-01 09:00:00 2020-02-01 09:00:00 Outpatient R CARMELITA KEMP [facility] [id number] [facility] 2020-01-25 10:30:00 2020-01-25 10:30:00 Outpatient R CARMELITA KEMP [facility] [id number] [facility] 2020-01-25 10:00:00 2020-01-25 10:00:00 Outpatient R [facility] [id number] [facility] 2019-10-25 09:00:00 2019-10-25 09:00:00 Outpatient R CARMELITA KEMP [facility] [id number] [facility] 2019-08-02 09:00:00 2019-08-02 09:00:00 Outpatient R [facility] [id number] [facility] 2019-08-01 13:30:00 2019-08-01 13:30:00 Outpatient R ANA ANNE [facility] [id number] [facility] 2019-07-11 15:00:00 2019-07-11 15:00:00 Outpatient R ANA ANNE [facility] [id number] [facility] 2019-07-05 14:15:00 2019-07-05 14:15:00 Outpatient R CARMELITA KEMP [facility] [id number] [facility] 2019-07-02 07:48:00 2019-07-05 10:52:00 [id number] 2019-06-27 09:30:00 2019-06-27 09:30:00 Outpatient R [facility] [id number] [facility] 2019-06-21 07:45:00 2019-06-21 07:45:00 Outpatient R RUFUS SANDOVAL [facility] [id number] [facility] 2019-06-20 11:00:00 2019-06-20 11:00:00 Outpatient P [facility] [id number] [facility] 2019-06-13 08:30:00 2019-06-13 08:30:00 Outpatient R [facility] [id number] [facility] 2019-06-06 08:00:00 2019-06-06 08:00:00 Outpatient R HILDA CARD [facility] [id number] [facility] 2019-06-02 14:30:00 2019-06-02 15:55:22 Outpatient R MANOHAR GUERRERO [facility] [id number] [facility] 2019-05-23 10:00:00 2019-05-23 10:43:16 Outpatient P XIMENA CARMINA LEVI Mayen [facility] [id number] [facility] Results Test Description Test Time Test Comments Results Result Co mments Source [facility] Urinalysis w/o Specific [id number] 20:30:00* Test Item Value Reference Range Interpretation Comme nts POCT PH U (test code = 3254) n/a 5-8 POCT U LEUK EST (test code = 3263) n/a Negative - Negative POCT U NIT (test code = 3262) n/a Negative - Negati ve POCT U PROT (test code = 3259) Negative Negative - Negat rahel POCT U GLU (test code = 3256) Normal Negative - Negati ve POCT U KETONE (test code = 3258) n/a Negative - Neg ative POCT U BLD (test code = 3257) n/a Negative - Negati ve [facility] [id number] 21:08:00* Test Item Value Reference Range Interpretation Comme nts POCT PREG (test code = 1605) Positive On board controls acceptable with C Line (test code = 3574) Yes POCT PREG LOT # (test code = 3575) POCT PREG TEST DATE ( test code = 3576) [facility] [id number] 21:23:00* Test Item Value Reference Range Interpretation Comme nts POCT PREG (test code = 1605) Negative On board controls acceptable with C Line (test code = 3574) Yes POCT PREG LOT # (test code = 3575) POCT PREG TEST DATE ( test code = 3576) [facility] OR PETEY ONLY - [id number] 01:11:36* Test Item Value Reference Range Interpretation Comme nts RPR (Qualitative) (test code = 84015-2) Nonreactive Nonreactive Lab Interpretation (test cod e = 63808-8) Normal [facility]) IMMUNE [id number] 23:50:27* Test Item Value Reference Range Interpretation Comme nts RHIG CANDIDATE? (test code = 5188) No- see comment Patient is not a candidate for RhIg- Patient is Rh Positive.Performed at [facility] Laboratory Services - [facility] Blood [address] [place] [id number] Free: [phone] No. [id number] [facility] Hospital[facility]atitis B Surface [id number] 20:54:47 * Test Item Value Reference Range Interpretation Comme nts HBsAg Semi-Quantitative ([place] t code = 5195-3) 0.04 Negative [facility] with Gqgdxfuqshvo3524-15-71 17:47:13* Test Item Value Reference Range Interpretation Comme nts WBC (test code = 6690-2) 9.14 See_Comment [Automated [employer]] The system which generated this result transmitted reference range: 4.30 - 11.10 10*3/?L. The reference range was not used to interpret this result as normal/abnormal. RBC (test code = 789-8) 4.68 See_Comment [Automated messa ge] The system which generated this result transmitted reference range: 3.93 - 5.25 10*6/?L. The reference range was not used to interpret this result as normal/abnormal. HGB (test code = 718-7) 11.2 g/dL 11.6-15.0 L HCT (test code = 4544-3) 35.1 % 35.7-45.2 L MCV (test code = 787-2) 75.0 fL 80.6-95.5 L MCH (test code = 785-6) 23.9 pg 25.9-32.8 L MCHC (test code = 786-4) 31.9 g/dL 31.6-35.1 RDW-SD (test code = 03191-6) 52.2 fL 39.0-49.9 H RDW-CV (test code = 788-0) 19.4 % 12.0-15.5 H PLT (test code = 777-3) 275 See_Comment [Automated messa ge] The system which generated this result transmitted reference range: 166 - 358 10*3/?L. The reference range was not used to interpret this result as normal/abnormal. MPV (test code = 50865-4) 9.7 fL 9.5-12.9 NRBC/100 WBC (test code = 8198851952) 0.0 See_Comment [Automated [employer] ssage] The system which generated this result transmitted reference range: 0.0 - 10.0 /100 WBCs. The reference range was not used to interpret this result as normal/abnormal. NRBC x10^3 (test code = 5320262640) See_Comment [Automated messa ge] The system which generated this result transmitted reference range: 10*3/?L. The reference range was not used to interpret this result as normal/abnormal. GRAN MAT (NEUT) % (test code = 770-8) 70.1 % IMM GRAN % (test code = 3716020488) 1.20 % LYMPH % (test code = 736-9) 17.5 % MONO % (test code = 5905-5) 9.8 % EOS % (test code = 713-8) 1.0 % BASO % (test code = 706-2) 0.4 % GRAN MAT x10^3(ANC) (test code = 0459804028) 6.40 10*3/uL 1.88-7.09 IMM GRAN x10^3 (test code = 6889335090) 0.11 10*3/uL 0.00-0.06 H LYMPH x10^3 (test code = 731-0) 1.60 10*3/uL 1.32-3.29 MONO x10^3 (test code = 742-7) 0.90 10*3/uL 0.33-0.92 EOS x10^3 (test code = 711-2) 0.09 10*3/uL 0.03-0.39 BASO x10^3 (test code = 704-7) 0.04 10*3/uL 0.01-0.07 POLYCHROMASIA (test code = 90221-8) 2+ See_Comment [Automated messa ge] The system which generated this result transmitted reference range: 2+. The reference range was not used to interpret this result as normal/abnormal. REACT LYMPHS (test code = 8362603286) Rare Lab Interpretation (test code = 36401-8) Abnormal [facility]2 AG-AB WITH [id number] 15:23:31* Test Item Value Reference Range Interpretation Comme nts HIV Semi-quantitative (test code = 90429-4) 0.12 Negative HIREN (test code = HIREN) Non-reactive for HIV-1 antigen and HIV-1/HIV-2 antibodies. ?No laboratory evidence of HIV infection. ?Repeat in 2-4 weeks if acute HIV infection is suspected. [facility] and Screen - ONCE [id number] 13:50:00 * Test Item Value Reference Range Interpretation Comme nts ABO & RH (test code = 20) O Positive IAT (test code = 1185) Negative [facility] W/O SPECIFIC [id number] 21:19:00* Test Item Value Reference Range Interpretation Comme nts POCT PH U (test code = 3254) n/a 5-8 POCT U LEUK EST (test code = 3263) n/a Negative - N egative POCT U NIT (test code = 3262) n/a Negative - Negati ve POCT U PROT (test code = 3259) neg Negative - Negat rahel POCT U GLU (test code = 3256) neg Negative - Negati ve POCT U KETONE (test code = 3258) n/a Negative - Neg ative POCT U BLD (test code = 3257) n/a Negative - Negati ve [facility] W/O SPECIFIC [id number] 21:19:00* Test Item Value Reference Range Interpretation Comme nts POCT PH U (test code = 3254) n/a 5-8 POCT U LEUK EST (test code = 3263) n/a Negative - N egative POCT U NIT (test code = 3262) n/a Negative - Negati ve POCT U PROT (test code = 3259) neg Negative - Negat rahel POCT U GLU (test code = 3256) neg Negative - Negati ve POCT U KETONE (test code = 3258) n/a Negative - Neg ative POCT U BLD (test code = 3257) n/a Negative - Negati ve [facility] URINALYSIS W/O SPECIFIC [id number] 21:09:00* Test Item Value Reference Range Interpretation Comme nts POCT PH U (test code = 3254) n/a 5-8 POCT U LEUK EST (test code = 3263) n/a Negative - N egative POCT U NIT (test code = 3262) n/a Negative - Negati ve POCT U PROT (test code = 3259) neg Negative - Negat rahel POCT U GLU (test code = 3256) neg Negative - Negati ve POCT U KETONE (test code = 3258) n/a Negative - Neg ative POCT U BLD (test code = 3257) n/a Negative - Negati ve [facility] URINALYSIS W/O SPECIFIC [id number] 20:54:00* Test Item Value Reference Range Interpretation Comme nts POCT PH U (test code = 3254) n/a 5-8 POCT U LEUK EST (test code = 3263) n/a Negative - Negative POCT U NIT (test code = 3262) n/a Negative - Negati ve POCT U PROT (test code = 3259) Negative Negative - Negat rahel POCT U GLU (test code = 3256) Normal Negative - Negati ve POCT U KETONE (test code = 3258) n/a Negative - Neg ative POCT U BLD (test code = 3257) n/a Negative - Negati ve [facility] URINALYSIS W/O SPECIFIC [id number] 21:08:00* Test Item Value Reference Range Interpretation Comme nts POCT PH U (test code = 3254) n/a 5-8 POCT U LEUK EST (test code = 3263) n/a Negative - Negative POCT U NIT (test code = 3262) n/a Negative - Negati ve POCT U PROT (test code = 3259) negative Negative - Negat rahel POCT U GLU (test code = 3256) negative Negative - Negati ve POCT U KETONE (test code = 3258) n/a Negative - Neg ative POCT U BLD (test code = 3257) n/a Negative - Negati ve [facility] URINALYSIS W/O SPECIFIC [id number] 21:03:00* Test Item Value Reference Range Interpretation Comme nts POCT PH U (test code = 3254) na 5-8 POCT U LEUK EST (test code = 3263) na Negative - Negative POCT U NIT (test code = 3262) na Negative - Negative POCT U PROT (test code = 3259) trace Negative - Negative POCT U GLU (test code = 3256) negative Negative - Negative POCT U KETONE (test code = 3258) na Negative - Negative POCT U BLD (test code = 3257) na Negative - Negative HIREN (test code = HIREN) accurate developme nt and interpretation of all internal controls Lab Interpretation (test code = 65280-1) Abnormal [facility] URINALYSIS W/O SPECIFIC [id number] 21:09:00* Test Item Value Reference Range Interpretation Comme nts POCT PH U (test code = 3254) n/a 5-8 POCT U LEUK EST (test code = 3263) n/a Negative - Negative POCT U NIT (test code = 3262) n/a Negative - Negati ve POCT U PROT (test code = 3259) normal Negative - Negat rahel POCT U GLU (test code = 3256) negative Negative - Negati ve POCT U KETONE (test code = 3258) n/a Negative - Neg ative POCT U BLD (test code = 3257) n/a Negative - Negati ve [facility] URINALYSIS W/O SPECIFIC [id number] 21:00:00* Test Item Value Reference Range Interpretation Comme nts POCT PH U (test code = 3254) n/a 5-8 POCT U LEUK EST (test code = 3263) n/a Negative - Negative POCT U NIT (test code = 3262) n/a Negative - Negati ve POCT U PROT (test code = 3259) negative Negative - Negat rahel POCT U GLU (test code = 3256) negative Negative - Negati ve POCT U KETONE (test code = 3258) n/a Negative - Neg ative POCT U BLD (test code = 3257) n/a Negative - Negati ve [facility] URINALYSIS W/O SPECIFIC [id number] 22:00:00* Test Item Value Reference Range Interpretation Comme nts POCT PH U (test code = 3254) N/a 5-8 POCT U LEUK EST (test code = 3263) N/a Negative - N egative POCT U NIT (test code = 3262) n/a Negative - Negati ve POCT U PROT (test code = 3259) Neg Negative - Negat rahel POCT U GLU (test code = 3256) Neg Negative - Negati ve POCT U KETONE (test code = 3258) n/a Negative - Neg ative POCT U BLD (test code = 3257) n/a Negative - Negati ve [facility] URINALYSIS W/O SPECIFIC [id number] 22:43:00* Test Item Value Reference Range Interpretation Comme nts POCT PH U (test code = 3254) n/a 5-8 POCT U LEUK EST (test code = 3263) n/a Negative - Negative POCT U NIT (test code = 3262) n/a Negative - Negati ve POCT U PROT (test code = 3259) negative Negative - Negat rahel POCT U GLU (test code = 3256) negative Negative - Negati ve POCT U KETONE (test code = 3258) n/a Negative - Neg ative POCT U BLD (test code = 3257) n/a Negative - Negati ve [facility] URINALYSIS W/O SPECIFIC [id number] 22:43:00* Test Item Value Reference Range Interpretation Comme nts POCT PH U (test code = 3254) n/a 5-8 POCT U LEUK EST (test code = 3263) n/a Negative - Negative POCT U NIT (test code = 3262) n/a Negative - Negati ve POCT U PROT (test code = 3259) negative Negative - Negat rahel POCT U GLU (test code = 3256) negative Negative - Negati ve POCT U KETONE (test code = 3258) n/a Negative - Neg ative POCT U BLD (test code = 3257) n/a Negative - Negati ve [facility] [id number] 20:17:00* Test Item Value Reference Range Interpretation Comme nts POCT PREG (test code = 1605) Positive On board controls acceptable with C Line (test code = 3574) Yes POCT PREG LOT # (test code = 3575) POCT PREG TEST DATE ( test code = 3576) [facility] URINALYSIS W/O SPECIFIC [id number] 20:17:00* Test Item Value Reference Range Interpretation Comme nts POCT PH U (test code = 3254) n/a 5-8 POCT U LEUK EST (test code = 3263) n/a Negative - Negative POCT U NIT (test code = 3262) n/a Negative - Negati ve POCT U PROT (test code = 3259) negative Negative - Negat rahel POCT U GLU (test code = 3256) negative Negative - Negati ve POCT U KETONE (test code = 3258) n/a Negative - Neg ative POCT U BLD (test code = 3257) n/a Negative - Negati ve [facility] [id number] 20:17:00* Test Item Value Reference Range Interpretation Comme nts POCT PREG (test code = 1605) Positive On board controls acceptable with C Line (test code = 3574) Yes POCT PREG LOT # (test code = 3575) POCT PREG TEST DATE ( test code = 3576) [facility] URINALYSIS W/O SPECIFIC [id number] 20:17:00* Test Item Value Reference Range Interpretation Comme nts POCT PH U (test code = 3254) n/a 5-8 POCT U LEUK EST (test code = 3263) n/a Negative - Negative POCT U NIT (test code = 3262) n/a Negative - Negati ve POCT U PROT (test code = 3259) negative Negative - Negat rahel POCT U GLU (test code = 3256) negative Negative - Negati ve POCT U KETONE (test code = 3258) n/a Negative - Neg ative POCT U BLD (test code = 3257) n/a Negative - Negati ve [facility] Notes Date/Time Note Provider Source 2023-04-21 16:00:00 Pw9mu/bOoV3ezbsK/ZDq s+QazULP SZajhhZihck8uyC0MDTkEFB9FsEp fn5b1oZP2166-79-97B05:00:00F ormatting of this note might be different from the original.Age: 17 year oldGA: 21w3d- Doing well- Gained 12 lbs since last visit. 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, female- Horizon neg- Anatomy scan on 03/26/23: Di/di twinsEDD by LMPNo obvious abnormalitiesHas follow-up scheduled- [place] [address]-4Zryiwwzd etemAY2020-35-61D32:25:06Pro shiva noteTXT1.2.840.584418.1.13.1 04.2.7.2.280189|[id number] Available for patient mbiu12455-6PlseZAMOBGNCEZAFw rmatted C-CDA narrative text[address] DbahQohwvvtpkBbnzyqaqvIHZD52 77739621CFBZLIPPBHRVKUXJZIEU LQ8516-37-79Y71:25:061.2.840 .196104.1.72.3.15|1.2.840.11 4350.1.13.104.2.7.2.727879_1 [id number] [facility] 2023-04-15 09:06:50 dfsTd5i2zNITUJjcU58E PqAafG3s Sj27dZeJBcgY7e6Tj/A3fsABNo/6 SThFqjk78893-04-11K54:06:50F ormatting of this note might be different from the original.Received [facility] results via fax. Stamped and will be scanned/uploaded into pt's chart.KELSEY HERNANDEZ RN 04/15/2023 9:07 AM 70920-5Qzvylrikl encounter XobkVT7906-68-12Y37:07:12Tel ephone encounter NoteTXT1.2.840.152894.1.13.1 04.2.7.2.363105|[id number] Available for patient xmpq71554-5UpjlSWKIMWUKPIZJs rmatted C-CDA narrative [id number] Hernandez RN[address] FuueIibrlxxswJeswbtkbvLEOT02 [id number] VS4434-92-48Y63:07:121.2.840 .576428.1.72.3.15|1.2.840.11 4350.1.13.104.2.7.2.727879_1 [id number] Kelsey Hernandez RN [facility] 2023-04-08 15:55:21 QqBu9vsT9vbGcP7/DA9X nf6hXg8o nVABuDjMEVrJdKiJltThg9rkyM4Q 9Qd3gELW8236-37-67Y37:55:21F ormatting of this note might be different from the original.Received [facility] results via fax. Stamped and will be scanned/uploaded into pt's chart.Pt viewed V[employer] results via website.KELSEY HERNANDEZ RN 04/08/2023 3:55 PM 93012-3Vqyshgrdt encounter UerxKH9395-67-56O27:56:19Tel ephone encounter NoteTXT1.2.840.390579.1.13.1 04.2.7.2.083104|[id number] Available for patient lxjl09148-1SreqKAAOJPNCORNPx rmatted C-CDA narrative [id number] G Cervantes [address] [id number] TJ1629-23-93N11:56:191.2.840 .827336.1.72.3.15|1.2.840.11 4350.1.13.104.2.7.2.727879_1 [id number] Kelsey Hernandez Formerly [facility] 2022-12-01 14:13:03 kr0eX2ST6asuzXQgMsMI 3ALHc74D OZ8CBt+TSf+fnkmqCeEJj5VZj6uH /58UQz0247-27-58H05:13:03F ormatting of this note might be different from the original.Pt returned call. Pt stated she has had intercourse "a lot" and its been unprotected. Will advise Dr. Anne. KELSEY HERNANDEZ RN 12/01/2022 2:14 PM 11617-6Ggvyxkzwg encounter PfigGN4522-72-76J77:20:51Tel ephone encounter NoteTXT1.2.840.104929.1.13.1 .2.7.2.086737|[id number] Available for patient dqyv71885-3SoqnGJ399707878Kz nellie Hernandez [address] [id number] KI5666-42-51U11:20:511.2.840 .521765.1.72.3.15|1.2.840.11 4350.1.13.104.2.7.2.727879_1 [id number] Kelsey Hernandez RN [facility] 2022-12-01 08:44:39 M7yGjE4YoJ16GDX+QjWO wxc6olvm 4OnGje6iB58+NDu5Tn+RpL+sA6zB cxroC/JJ9140-61-08D88:44:39F ormatting of this note might be different from the original.FuturestateITt message sent.KELSEY HERNANDEZ RN 12/01/2022 8:44 AM 00363-5Etlyjwmxi encounter KvpoJU1551-11-70Z25:44:52Tel ephone encounter NoteTXT1.2.840.013944.1.13.1 04.2.7.2.311588|[id number] Available for patient [id number] nellie Hernandez RN[address] CqbyForxioumaZqlxffbimAYZV22 [id number] WU2739-04-69X50:44:521.2.840 .055115.1.72.3.15|1.2.840.11 4350.1.13.104.2.7.2.727879_1 [id number] Kelsey Hernandez Formerly [facility] 2022-11-29 16:45:17 TnDMhBc0CQ2FcCCecjI4 ofU2vGg/ 7+qhDfrvOYjLiCv7plSGIaJZljne qYN0XkMf3638-53-66E09:45:17F ormatting of this note might be different from the original.Angie Mckenzie is a 17 year old female that is following up on her request to change her control to oral medication. Please advise. 81067-0Uaiwildmf encounter GsrxSR8739-66-66N20:46:00Tel ephone encounter NoteTXT1.2.840.452236.1.13.1 04.2.7.2.694239|[id number] Available for patient mdoi81509-1FwwjSE142241584Rt [address] [id number] LO1911-16-99Y26:46:001.2.840 .530325.1.72.3.15|1.2.840.11 4350.1.13.104.2.7.2.727879_1 [id number] Josefina Jackson [facility] 2022-11-28 15:03:10 B0rZKDaQInsGQCmk7ojR yVEF0iIN Y4jKuC2OOUFF2JPprQORI9ZiRyM/ RSSS9Ytf6588-42-67W62:03:10F ormatting of this note might be different from the original.Per Dr. Anne- LMP and any risk of being . Gentor Resourceshart message sent.KELSEY HERNANDEZ RN 11/28/2022 3:03 PM 89543-0Sgmmnyjfe encounter UljyQK4178-46-01U12:03:52Tel ephone encounter NoteTXT1.2.840.500430.1.13.1 04.2.7.2.839133|[id number] Available for patient nmno05282-9OedyAMCGZUGMOP[address] [id number] FV9973-83-08J88:03:521.2.840 .911241.1.72.3.15|1.2.840.11 4350.1.13.104.2.7.2.727879_1 [id number] [facility] 2022-11-26 09:43:58 AwMjXB0vX5Q64cJGl3S0 jF38KNy4 KOHVRXP9Y024tZClqUdnCNVdsdQC kVSzrSra4237-15-11C62:43:58F ormatting of this note might be different from the original.Speaking with Dr. Anne. KELSEY HERNANDEZ RN 11/26/2022 9:44 AM 09510-1Mapiubjay encounter MigaHZ2563-93-84X74:44:17Tel ephone encounter NoteTXT1.2.840.982740.1.13.1 04.2.7.2.946403|[id number] Available for patient ipaa40924-6OtohSRVFVQUUKD[address] GtwjSndnovkwmAuouthjdrAYEP48 [id number] UF0817-13-56H15:44:171.2.840 .515748.1.72.3.15|1.2.840.11 4350.1.13.104.2.7.2.727879_1 [id number] [facility] 2022-11-25 16:40:54 gJ6TEq/SXZKB6yKL37a9 W12xGAA3 lg58Y9jeYKiGhrNYEcEqUoP3mDC+ D8EpSjwt7204-17-77G34:40:54F ormatting of this note might be different from the original.Patient is calling in wanting to switch from BC patch to a pill form due to patches not sticking. 47413-4Azkbegjjo encounter OawuHA7573-21-72H87:41:22Tel ephone encounter NoteTXT1.2.840.648747.1.13.1 04.2.7.2.307409|[id number] Available for patient wrdf14907-4AfefAT282267889Cy jamaica Mayen [address] GrdtJotqupgzpYyzkvljanAEYV66 [id number] UO0059-31-88C13:41:221.2.840 .944864.1.72.3.15|1.2.840.11 4350.1.13.104.2.7.2.727879_1 [id number] Amandeep Mayen [facility]
--- NOTE | 2023-05-14 00:32 | EDPHYS ---
Physician Documentation [facility] Name: Brody Mckeznie Age: 17 yrs Sex: Female : 2005 Arrival Date: 05/13/2023 Time: 23:24 Bed IW1 Private MD: ED Physician Jonel Iglesias HPI: 05/14 00:19 This 17 yrs old Black Female presents to ER via Ambulatory with complaints of Sore kb Throat, Fever. 00:19 Pt is a 17 year old female who presents for sore throat and fever that started kb yesterday. Denies cough and congestion. . 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 Flu vaccine is not up to date. - Social history:: Smoking status: Patient denies any tobacco usage or history of. Patient/guardian denies using alcohol, street drugs. ROS: 23:39 Respiratory: Negative for shortness of breath, cough, wheezing, and pleuritic chest kb pain, 23:39 Constitutional: Positive for fever, 23:39 ENT: Positive for sore throat, 23:39 All other systems are negative, Exam: 23:39 Constitutional: This is a well developed, well nourished patient who is awake, alert, kb and in no acute distress. Head/Face: Normocephalic, atraumatic. Cardiovascular: Regular rate Respiratory: Respirations even and unlabored. No increased work of breathing. Talking in full sentences Abdomen/GI: Soft, non-tender. No distention Skin: Warm, dry with normal turgor. Normal color. MS/ Extremity: Pulses equal, no cyanosis. Neurovascular intact. Full, normal range of motion. Neuro: Awake and alert, GCS 15, oriented to person, place, time, and situation. Moves all extremities. Normal gait. 23:39 ENT: External ear(s): are unremarkable, Ear canal(s): no acute changes, TM's: are normal, Posterior pharynx: swelling, is not appreciated, erythema, that is moderate, Vital Signs: 23:36 BP 112 / 68; Pulse 89; Resp 16; Temp 98.5(O); Pulse Ox 98% on R/A; Weight 83.91 kg; km8 Height 5 ft. 7 in. (R); Pain 5/10; 23:36 Body Mass Index 28.97 (83.91 kg, 170.18 cm) - Percentile 91.7 % km8 23:36 Pain Scale: Adult km8 MDM: 23:34 Patient medically screened. kb 23:39 Differential diagnosis: Flu, COVID, URI, strep, pharyngitis, tonsillitis. Data kb reviewed: vital signs, nurses notes. Test considered but Not performed: Labs: Flu and COVID test considered but patient declines at this time. 05/14 00:31 Counseling: I had a detailed discussion with the patient and/or guardian regarding the kb historical points, exam findings, and any diagnostic results supporting the discharge/admit diagnosis, lab results, the need for outpatient follow up, a family practitioner, to return to the emergency department if symptoms worsen or persist or if there are any questions or concerns that arise at home. 05/13 23:36 Order name: Strep; Complete Time: 00:31 kb 05/14 00:30 Order name: Throat Culture EDMS Administered Medications: No medications were administered Disposition: 00:05 Co-signature as Attending Physician, Jonel Iglesias MD I agree with the assessment sp4 and plan of care. I reviewed the patient's care provided by the Advanced Practice Provider and agree with the diagnosis and treatment plan. Disposition Summary: 05/14/23 00:31 Discharge Ordered Notes: Location: Home kb Condition: Stable kb Diagnosis - Acute pharyngitis, unspecified kb Followup: kb - With: Emergency Department - When: As needed - Reason: Worsening of condition Followup: kb - With: Private Physician - When: 2 - 3 days - Reason: Recheck today's complaints, Continuance of care, Re-evaluation by your physician Discharge Instructions: - Discharge Summary Sheet kb - Pharyngitis, Hfja-cc-Umrr kb Forms: - Medication Reconciliation Form kb - Thank You Letter kb - Antibiotic Education kb - Prescription Opioid Use kb - Patient Portal Instructions kb - Leadership Thank You Letter kb - Work release form 8 Signatures: Dispatcher [employer] EDMT Gino Lucy, CAN LABELER-C CAN LABELER-Ckb Jonel Iglesias MD MD sp4 Adriana Brennan RN RN km8
--- NOTE | 2023-05-14 00:32 | ER ---
Nurse's Notes [facility] Name: Brody Mckenzie Age: 17 yrs Sex: Female : 2005 Arrival Date: 05/13/2023 Time: 23:24 Bed IW1 Private MD: Diagnosis: Acute pharyngitis, unspecified Presentation: 05/13 23:36 Chief complaint: Patient states: sore throat for 2 days with ear pain. Coronavirus km8 screen: Client denies travel out of the [place] in the last 14 days. Ebola Screen: No symptoms or risks identified at this time. Initial Sepsis Screen: Does the patient meet any 2 criteria? No. Patient's initial sepsis screen is negative. Does the patient have a suspected source of infection? No. Patient's initial sepsis screen is negative. Risk Assessment: Do you want to hurt yourself or someone else? Patient reports no desire to harm self or others. Onset of symptoms was May 11, 2022. 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 Flu vaccine is not up to date. - Social history:: Smoking status: Patient denies any tobacco usage or history of. Patient/guardian denies using alcohol, street drugs. Screenin:36 [facility] ED Fall Risk Assessment (Adult) History of falling in the last 3 months, km8 including since admission No falls in past 3 months (0 pts) Confusion or Disorientation No (0 pts) Intoxicated or Sedated No (0 pts) Impaired Gait No (0 pts) Mobility Assist Device Used No (0 pt) Altered Elimination No (0 pt) Score/Fall Risk Level 0 - 2 = Low Risk Oriented to surroundings, Maintained a safe environment, Educated pt \T\ family on fall prevention, incl call for assistance when getting out of bed, Assessed \T\ reinforced patient's understanding of fall precautions. Abuse screen: Denies threats or abuse. Denies injuries from another. Nutritional screening: No deficits noted. Tuberculosis screening: No symptoms or risk factors identified. Assessment: 23:36 General: see triage assessment/notes. km8 Vital Signs: 23:36 BP 112 / 68; Pulse 89; Resp 16; Temp 98.5(O); Pulse Ox 98% on R/A; Weight 83.91 kg; km8 Height 5 ft. 7 in. (R); Pain 5/10; 23:36 Body Mass Index 28.97 (83.91 kg, 170.18 cm) - Percentile 91.7 % km8 23:36 Pain Scale: Adult km8 ED Course: 23:26 Patient arrived in ED. jj6 23:34 Lucy Christian FNP-C is [facility]. kb 23:34 Jonel Iglesias MD is Attending Physician. kb 23:36 Patient has correct armband on for positive identification. Adult w/ patient. Provided km8 Education on: d/c teaching. 23:36 No provider procedures requiring assistance completed. Patient did not have IV access km8 during this emergency room visit. Patient maintains SpO2 saturation greater than 95% on room air. 23:37 Triage completed. km8 23:37 Arm band placed on right wrist. km8 Administered Medications: No medications were administered Medication: 23:36 VIS not applicable for this client. km8 Outcome: 05/14 00:31 Discharge ordered by . kb 00:37 Discharged to home ambulatory, km8 00:37 Condition: good 00:37 Discharge instructions given to patient, Instructed on discharge instructions, follow up and referral plans. Demonstrated understanding of instructions, follow-up care, 00:37 Patient left the ED. km8 Signatures: Lucy Christian FNP-C FNP-Jami Last jj6 Adriana Brennan, RN RN km8
[2023-05-14 01:50] VITALS: BP 112/68; TEMP 98.5; O2SAT 98
== END ==
LOC: ER 23:24
DX: J02.9 Acute pharyngitis, unspecified (principal); Z28.310 Unvaccinated for COVID-19
CPT/HCPCS: 87081